=== PATIENT | female | born 1955 | race Caucasian/White ===

== ENCOUNTER 2019-02-03 15:13 | Emergency (ER) | payer BC, OTHER ==
[~2019-02-03] VITALS: Ht 154.9 cm; Wt 98.4 kg
[~2019-02-03 15:13] MED LIST: ALL300 PO; AMIT25TA9 PO; AMLO5TAB4 PO; ASA81 PO; BENA40TA8 PO; FENO145T PO; Humulin R; INSU100V9 SQ; LEVO25TA2 PO; OMEG500C3 PO; TOPXL100 PO
[2019-02-03 15:26] VITALS: BP_SYST 158
[2019-02-03 16:15] VITALS: BP_SYST 144
== END 2019-02-03 16:15 | disposition home or self-care (01) ==
LOC: SED 15:13
DX: T82.838A Hemorrhage due to vascular prosthetic devices, implants and grafts, initial encounter (principal); J45.909 Unspecified asthma, uncomplicated; I12.9 Hypertensive chronic kidney disease with stage 1 through stage 4 chronic kidney disease, or unspecified chronic kidney disease; E11.22 Type 2 diabetes mellitus with diabetic chronic kidney disease; N18.9 Chronic kidney disease, unspecified; Z86.79 Personal history of other diseases of the circulatory system; Z88.0 Allergy status to penicillin; Z88.2 Allergy status to sulfonamides; Z88.5 Allergy status to narcotic agent; Z88.8 Allergy status to other drugs, medicaments and biological substances; Z79.899 Other long term (current) drug therapy; Y92.89 Other specified places as the place of occurrence of the external cause
CPT/HCPCS: 99283

== ENCOUNTER 2019-04-13 11:59 | Emergency (ER) | payer BC, OTHER ==
[~2019-04-13] VITALS: Ht 152.4 cm; Wt 117.9 kg
[~2019-04-13 11:59] MED LIST changes: -Humulin R; +Humulin R SQ
[2019-04-13 12:27] VITALS: BP_SYST 170
[2019-04-13] MEDS ORDERED: KETOROLAC TROMETHAMINE 30 MG VIAL IVP ONE (12:45)
[2019-04-13] MEDS ORDERED: ONDANSETRON HCL 4 MG/2 ML VIAL IVP ONE (12:45)
[2019-04-13 12:50] LABS: BASOPHILS % (AUTO) 0.6 % (0.0-2.0); EOSINOPHILS # (AUTO) 0.2 K/uL (0.0-0.4); EOSINOPHILS % (AUTO) 2.8 % (0.0-4.0); HEMATOCRIT 30.2 % (36-48); HEMOGLOBIN 9.8 g/dL (12.0-16.0); LYMPHOCYTES # (AUTO) 1.1 K/uL (1.0-5.5); LYMPHOCYTES % (AUTO) 14.9 % (20.5-51.5); MEAN CORPUSCULAR HEMOGLOBIN 29 pg (27-31); MEAN CORPUSCULAR HGB CONC 32 % (32-36); MEAN CORPUSCULAR VOLUME 91 fL (79.0-98.0); MONOCYTES # (AUTO) 0.4 K/uL (0.0-1.0); MONOCYTES % (AUTO) 4.9 % (1.7-9.3); NEUTROPHILS # (AUTO) 5.6 K/uL (1.8-7.7); NEUTROPHILS % (AUTO) 76.8 % (40.0-70.0); PLATELET COUNT (AUTO) 204 K/uL (130-430); RED BLOOD CELL COUNT(AUTO) 3.34 MIL/uL (4.2-6.2); RED CELL DISTRIBUTION WIDTH 16.9 % (9.0-15.0); WHITE BLOOD COUNT (AUTO) 7.4 K/uL (4.8-10.8)
--- NOTE | 2019-04-13 13:00 | NUR ---
Patient to ER bed 6 to gown for evaluation. Side rails up. Report given to Keira GOYAL.
[2019-04-13 13:03] LABS: BILIRUBIN,URINE NEGATIVE (NEGATIVE); BLOOD, URINE 1+ (NEGATIVE); CLARITY/URINE CLEAR (CLEAR); COLOR,URINE YELLOW (YELLOW); GLUCOSE,URINE 2+ (NEGATIVE); KETONES,URINE NEGATIVE (NEGATIVE); LEUKOCYTE ESTERASE ,URINE NEGATIVE (NEGATIVE); NITRITE, URINE NEGATIVE (NEGATIVE); PROTEIN URINE 3+ (NEGATIVE); UROBILINOGEN,URINE 0.2 (0.2-1.0)
[2019-04-13 13:06] LABS: CALCIUM 7.8 mg/dL (8.4-11.0); POTASSIUM 3.5 mmol/L (3.5-5.1)
[2019-04-13 13:11] LABS: WBC,URINE 0-3 /HPF (0-3)
[2019-04-13 13:12] LABS: ALBUMIN 3.8 g/dL (3.4-4.8); TOTAL BILIRUBIN 0.5 mg/dL (0.0-1.0)
[2019-04-13 13:12] LABS: BACTERIA,URINE FEW /HPF (None Seen)
[2019-04-13 13:15] LABS: CREATININE 7.92 mg/dL (0.55-1.30)
--- NOTE | 2019-04-13 13:20 | NUR ---
Patient given written and verbal discharge instructions and verbalizes understanding. ER MD discussed with patient the results and treatment provided. Patient in stable condition. ID arm band removed. Rx of given. Patient educated on pain management and to follow up with PMD. Pain Scale 0 Opportunity for questions provided and answered. Medication side effect fact sheet provided.
[2019-04-13] MEDS ORDERED: LOPERAMIDE HCL 2 MG CAPSULE PO ONE (13:45)
--- NOTE | 2019-04-13 14:32 | NUR ---
Patient given imodium prior to discharge, written on cover sheet for discharge instructions what time last dose was given.
--- NOTE | 2019-04-13 14:37 | NUR ---
Patient given written and verbal discharge instructions and verbalizes understanding. ER MD discussed with patient the results and treatment provided. Patient in stable condition. ID arm band removed. IV catheter removed intact and dressing applied, no active bleeding. Rx of Zofran, Imodium given. Patient educated on pain management and to follow up with PMD. Pain Scale 3/10. Opportunity for questions provided and answered. Medication side effect fact sheet provided.
[2019-04-13 14:46] VITALS: BP_SYST 163
--- NOTE | 2019-04-15 13:00 | NUR ---
Note claudia in EDM - 04/15/19 at 1900 by MELQUIADES [facility] rails up. Report given to Keira COOPER
== END 2019-04-13 14:37 | disposition home or self-care (01) ==
LOC: SED 11:59
DX: K52.9 Noninfective gastroenteritis and colitis, unspecified (principal); R53.1 Weakness; J45.909 Unspecified asthma, uncomplicated; E11.9 Type 2 diabetes mellitus without complications; N28.9 Disorder of kidney and ureter, unspecified; M10.9 Gout, unspecified; I49.9 Cardiac arrhythmia, unspecified; I10 Essential (primary) hypertension; R00.0 Tachycardia, unspecified; Z88.0 Allergy status to penicillin; Z88.2 Allergy status to sulfonamides; Z88.6 Allergy status to analgesic agent; Z88.8 Allergy status to other drugs, medicaments and biological substances; Z79.899 Other long term (current) drug therapy; Z79.82 Long term (current) use of aspirin
CPT/HCPCS: 36415; 70486; 71045; 80053; 81000; 83605; 85025; 86710; 87040; 87086; 93005; 96374; 96375; 99284; J1885; J2405

== ENCOUNTER 2019-04-14 16:52 | Emergency (ER) | payer BC, OTHER ==
[~2019-04-14] VITALS: Ht 154.9 cm; Wt 88.5 kg
--- NOTE | 2019-04-14 16:56 | NUR ---
Patient to ER bed 06 to gown for evaluation. Side rails up.
[2019-04-14 17:00] VITALS: BP_SYST 153
--- NOTE | 2019-04-14 17:00 | NUR ---
Patient arrived in the ED accompanied by her sister, c/o right hip pain post mechanical fall this afternoon. Denied any head injury or loss of consciousness. Denied any nausea, vomiting or diarrhea. Denied any chest pain, SOB, or blurry vision. Patient is alert and oriented x4, respirations even and unlabored, speaking in full sentences. Sister at bedside. Informed of wait time. Instructed to notify ED staff for any changes in condition or worsening of symptoms. Patient verbalized understanding.
--- NOTE | 2019-04-14 17:09 | NUR ---
X-ray done at bedside as ordered by Dr. Munson. Patient tolerated the medicatons well.
[2019-04-14] MEDS ORDERED: HYDROcodone/ACETAMIN 10-325 MG TAB PO ONE (17:15)
--- NOTE | 2019-04-14 17:15 | NUR ---
PEGGY Munson at bedside examining patient.
--- NOTE | 2019-04-14 17:17 | NUR ---
Administered 10/325 [place] PO as ordered by Dr. Munson. Patient tolerated the medication well.
--- NOTE | 2019-04-14 17:50 | NUR ---
Patient given written and verbal discharge instructions and verbalizes understanding. ER MD discussed with patient the results and treatment provided. Patient in stable condition. ID arm band removed. Rx of [place] 5/325 given. Patient educated on pain management and to follow up with PMD. Pain Scale 3/10. Opportunity for questions provided and answered. Medication side effect fact sheet provided.
== END 2019-04-14 17:51 | disposition home or self-care (01) ==
LOC: SED 16:52
DX: S70.01XA Contusion of right hip, initial encounter (principal); J45.909 Unspecified asthma, uncomplicated; E11.9 Type 2 diabetes mellitus without complications; I10 Essential (primary) hypertension; Z88.0 Allergy status to penicillin; Z88.2 Allergy status to sulfonamides; Z88.8 Allergy status to other drugs, medicaments and biological substances; Z79.82 Long term (current) use of aspirin; Z79.899 Other long term (current) drug therapy; W01.0XXA Fall on same level from slipping, tripping and stumbling without subsequent striking against object, initial encounter; Y93.89 Activity, other specified; Y92.89 Other specified places as the place of occurrence of the external cause; Y99.8 Other external cause status
CPT/HCPCS: 73502; 99283

== ENCOUNTER 2019-04-20 14:09 | Inpatient (IN) | payer BC, OTHER ==
[~2019-04-20] VITALS: Ht 156.2 cm; Wt 98.0 kg
[2019-04-20 14:53] VITALS: BP_SYST 147
[2019-04-20] MEDS ORDERED: NACL 0.9% 1,000 ML IV ONE (15:07)
[2019-04-20] MEDS ORDERED: IPRATROPIUM BROM 0.5 MG/2.5 ML VIAL.NEB (ATROVENT) INH ONE (15:15)
[2019-04-20] MEDS ORDERED: ALBUTEROL SULFATE 0.083% 2.5 MG/3 ML VIAL.NEB INH ONE (15:15)
[2019-04-20 15:44] LABS: BASOPHILS % (AUTO) 0.5 % (0.0-2.0); EOSINOPHILS # (AUTO) 0.2 K/uL (0.0-0.4); EOSINOPHILS % (AUTO) 2.1 % (0.0-4.0); HEMATOCRIT 27.5 % (36-48); HEMOGLOBIN 9.1 g/dL (12.0-16.0); LYMPHOCYTES # (AUTO) 0.7 K/uL (1.0-5.5); LYMPHOCYTES % (AUTO) 8.1 % (20.5-51.5); MEAN CORPUSCULAR HEMOGLOBIN 30 pg (27-31); MEAN CORPUSCULAR HGB CONC 33 % (32-36); MEAN CORPUSCULAR VOLUME 91 fL (79.0-98.0); MONOCYTES # (AUTO) 0.5 K/uL (0.0-1.0); MONOCYTES % (AUTO) 6.3 % (1.7-9.3); NEUTROPHILS # (AUTO) 7.1 K/uL (1.8-7.7); PLATELET COUNT (AUTO) 206 K/uL (130-430); RED BLOOD CELL COUNT(AUTO) 3.03 MIL/uL (4.2-6.2); RED CELL DISTRIBUTION WIDTH 16.9 % (9.0-15.0); WHITE BLOOD COUNT (AUTO) 8.6 K/uL (4.8-10.8)
[2019-04-20 16:09] LABS: INR 1.1 (0.8-1.2); PROTHROMBIN TIME 10.9 SECS (9.5-12.5)
[2019-04-20] MEDS ORDERED: FUROSEMIDE 40 MG/4 ML VIAL IVP ONE (16:30)
[2019-04-20 17:02] LABS: CREATININE 4.07 mg/dL (0.55-1.30); POTASSIUM 3.7 mmol/L (3.5-5.1)
[2019-04-20 17:11] LABS: ALBUMIN 3.2 g/dL (3.4-4.8); TOTAL BILIRUBIN 0.6 mg/dL (0.0-1.0)
[2019-04-20 17:24] LABS: CALCIUM 8.4 mg/dL (8.4-11.0)
[2019-04-20 17:35] LABS: BILIRUBIN,URINE NEGATIVE (NEGATIVE); CLARITY/URINE CLEAR (CLEAR); COLOR,URINE YELLOW (YELLOW); GLUCOSE,URINE 3+ (NEGATIVE); KETONES,URINE NEGATIVE (NEGATIVE); LEUKOCYTE ESTERASE ,URINE NEGATIVE (NEGATIVE); NITRITE, URINE NEGATIVE (NEGATIVE); PH,URINE 8.5 (5.0-8.0); PROTEIN URINE 3+ (NEGATIVE); UROBILINOGEN,URINE 0.2 (0.2-1.0)
[2019-04-20 17:46] LABS: BLOOD, URINE TRACE (NEGATIVE)
[2019-04-20] MEDS ORDERED: [UNRECOGNIZED DRUG - OTHER] PO (17:55)
[2019-04-20] MEDS ORDERED: INSNLG7030 SUBCUT ×2 (17:55)
[2019-04-20] MEDS ORDERED: CALC0.258 PO (17:57)
[2019-04-20] MEDS ORDERED: LORA10TA7 PO (17:57)
[2019-04-20 18:38] LABS: BACTERIA,URINE FEW /HPF (None Seen); MUCUS,URINE None Seen /LPF (None Seen); RBC,URINE 0-3 /HPF (0-3); WBC,URINE 0-3 /HPF (0-3)
[2019-04-20 20:44] VITALS: BP_SYST 140
[2019-04-20] MEDS: INSULIN REGULAR, HUMAN 100 UNITS/ML, 10 ML VIAL (humuLIN R) SUBCUT PRN (21:24)
[2019-04-21 00:13] VITALS: BP_SYST 153
[2019-04-21] MEDS: INSULIN REGULAR, HUMAN 100 UNITS/ML, 10 ML VIAL (humuLIN R) SUBCUT PRN ×2 (06:42→11:31)
[2019-04-21 07:42] LABS: BASOPHILS % (AUTO) 0.5 % (0.0-2.0); EOSINOPHILS # (AUTO) 0.2 K/uL (0.0-0.4); EOSINOPHILS % (AUTO) 3.2 % (0.0-4.0); HEMATOCRIT 28.4 % (36-48); HEMOGLOBIN 9.1 g/dL (12.0-16.0); LYMPHOCYTES # (AUTO) 1.1 K/uL (1.0-5.5); LYMPHOCYTES % (AUTO) 15.7 % (20.5-51.5); MEAN CORPUSCULAR HEMOGLOBIN 30 pg (27-31); MEAN CORPUSCULAR HGB CONC 32 % (32-36); MEAN CORPUSCULAR VOLUME 92 fL (79.0-98.0); MONOCYTES # (AUTO) 0.4 K/uL (0.0-1.0); MONOCYTES % (AUTO) 5.6 % (1.7-9.3); NEUTROPHILS # (AUTO) 5.3 K/uL (1.8-7.7); PLATELET COUNT (AUTO) 201 K/uL (130-430); RED BLOOD CELL COUNT(AUTO) 3.09 MIL/uL (4.2-6.2); RED CELL DISTRIBUTION WIDTH 17.3 % (9.0-15.0); WHITE BLOOD COUNT (AUTO) 7.1 K/uL (4.8-10.8)
[2019-04-21 07:52] LABS: ALBUMIN 3.3 g/dL (3.4-4.8); CALCIUM 8.4 mg/dL (8.4-11.0); CREATININE 5.09 mg/dL (0.55-1.30); POTASSIUM 3.6 mmol/L (3.5-5.1); TOTAL BILIRUBIN 0.6 mg/dL (0.0-1.0)
[2019-04-21 08:00] VITALS: BP_SYST 147
[2019-04-21 11:25] VITALS: BP_SYST 152
[2019-04-21 14:49] VITALS: BP_SYST 128
== END 2019-04-21 15:00 | disposition home or self-care (01) | DRG 204 ==
LOC: SED 14:09 → STU 18:43
PROVIDERS: ADMIT Internal Medicine; ATTEND Internal Medicine
DX: R06.02 Shortness of breath (principal); N18.6 End stage renal disease; Z68.41 Body mass index [BMI] 40.0-44.9, adult; I12.0 Hypertensive chronic kidney disease with stage 5 chronic kidney disease or end stage renal disease; M10.9 Gout, unspecified; J45.909 Unspecified asthma, uncomplicated; E11.22 Type 2 diabetes mellitus with diabetic chronic kidney disease; E11.40 Type 2 diabetes mellitus with diabetic neuropathy, unspecified; G47.33 Obstructive sleep apnea (adult) (pediatric); F41.9 Anxiety disorder, unspecified; E78.5 Hyperlipidemia, unspecified; E66.9 Obesity, unspecified; T50.995A Adverse effect of other drugs, medicaments and biological substances, initial encounter; Y92.89 Other specified places as the place of occurrence of the external cause; Z99.2 Dependence on renal dialysis; Z88.2 Allergy status to sulfonamides; Z88.0 Allergy status to penicillin; Z90.710 Acquired absence of both cervix and uterus; Z88.5 Allergy status to narcotic agent; Z88.8 Allergy status to other drugs, medicaments and biological substances; Z79.899 Other long term (current) drug therapy
CPT/HCPCS: 36415; 71045; 80053; 81000-TC; 82150-TC; 82550-TC; 82962; 83605; 83690-TC; 83880; 84484; 85025; 85610-TC; 85730-TC; 87040-TC; 87081; 93005; 94640; 96374; 99285; G0378; J1815; J1940; J7030; J7613

== ENCOUNTER 2019-05-05 10:58 | Emergency (ER) | payer BC, OTHER ==
[~2019-05-05] VITALS: Ht 154.9 cm; Wt 95.3 kg
[~2019-05-05 10:58] MED LIST changes: -ASA81 PO; +CALC0.258 PO; -Humulin R SQ; +INSNLG7030 SUBCUT; -INSU100V9 SQ; +LORA10TA7 PO; -OMEG500C3 PO; +[UNRECOGNIZED DRUG - OTHER] PO
[2019-05-05 11:10] VITALS: BP_SYST 134
--- NOTE | 2019-05-05 11:10 | NUR ---
Placed in room 04. Placed on ekg monitor tech, blood pressure machine and pulse oximeter. To gown for exam. Side rails up.
--- NOTE | 2019-05-05 11:45 | NUR ---
ER at bedside examining patient.
--- NOTE | 2019-05-05 12:00 | NUR ---
Received patient bib daugther with cc of generalized weakness. sob, lower back pain. room air saturation 95%. vital sign stable, afebrile. assessment done. monitor placed, ekg and labs drawn. waiting for result.
[2019-05-05 12:15] LABS: BASOPHILS % (AUTO) 0.5 % (0.0-2.0); EOSINOPHILS # (AUTO) 0.3 K/uL (0.0-0.4); EOSINOPHILS % (AUTO) 3.7 % (0.0-4.0); HEMATOCRIT 28.5 % (36-48); HEMOGLOBIN 9.1 g/dL (12.0-16.0); LYMPHOCYTES % (AUTO) 10.9 % (20.5-51.5); MEAN CORPUSCULAR HEMOGLOBIN 29 pg (27-31); MEAN CORPUSCULAR HGB CONC 32 % (32-36); MEAN CORPUSCULAR VOLUME 91 fL (79.0-98.0); MONOCYTES # (AUTO) 0.3 K/uL (0.0-1.0); MONOCYTES % (AUTO) 3.7 % (1.7-9.3); NEUTROPHILS # (AUTO) 7.3 K/uL (1.8-7.7); NEUTROPHILS % (AUTO) 81.2 % (40.0-70.0); PLATELET COUNT (AUTO) 254 K/uL (130-430); RED BLOOD CELL COUNT(AUTO) 3.12 MIL/uL (4.2-6.2); RED CELL DISTRIBUTION WIDTH 16.8 % (9.0-15.0)
[2019-05-05 12:30] LABS: INR 1.1 (0.8-1.2); PROTHROMBIN TIME 10.6 SECS (9.5-12.5)
[2019-05-05 12:37] LABS: CALCIUM 10.3 mg/dL (8.4-11.0); POTASSIUM 4.5 mmol/L (3.5-5.1)
[2019-05-05 12:39] LABS: ALBUMIN 3.3 g/dL (3.4-4.8); TOTAL BILIRUBIN 0.5 mg/dL (0.0-1.0)
--- NOTE | 2019-05-05 13:34 | NUR ---
Patient transported to radiology via gurney , accompanied by cardiac cath lab radiology technologist.
[2019-05-05 14:12] LABS: AMYLASE 67 U/L (0-100); LIPASE 225 U/L (73-393)
[2019-05-05] MEDS ORDERED: ESLI200T PO (15:33)
[2019-05-05] MEDS ORDERED: TRAZ300T11 PO (15:33)
[2019-05-05 16:14] VITALS: BP_SYST 122
--- NOTE | 2019-05-05 16:14 | NUR ---
Patient given written and verbal discharge instructions and verbalizes understanding. ER MD Rodriguez discussed with patient the results and treatment provided. Patient in stable condition. ID arm band removed. Rx of Azithromycin, [place], Sudafed given. Patient educated on pain management and to follow up with PMD. Pain Scale 0. Opportunity for questions provided and answered. Medication side effect fact sheet provided.
== END 2019-05-05 16:14 | disposition home or self-care (01) ==
LOC: SED 10:58
DX: N19 Unspecified kidney failure (principal); J40 Bronchitis, not specified as acute or chronic; M54.9 Dorsalgia, unspecified; J45.909 Unspecified asthma, uncomplicated; I10 Essential (primary) hypertension; Z88.2 Allergy status to sulfonamides; Z88.8 Allergy status to other drugs, medicaments and biological substances; Z88.0 Allergy status to penicillin; Z79.4 Long term (current) use of insulin; Z79.899 Other long term (current) drug therapy
CPT/HCPCS: 36415; 71045; 80053; 82150-TC; 82550-TC; 82962; 83690-TC; 83880; 84484; 85025; 85610-TC; 85730-TC; 86710; 99284

== ENCOUNTER 2019-05-06 19:08 | Inpatient (IN) | payer BC, OTHER ==
[~2019-05-06] VITALS: Ht 154.9 cm; Wt 100.0 kg
[~2019-05-06 19:08] MED LIST changes: +ESLI200T PO; +TRAZ300T11 PO
[2019-05-06 19:13] VITALS: BP_SYST 162
[2019-05-06 21:12] LABS: BASOPHILS # (AUTO) 0.1 K/uL (0.0-0.2); BASOPHILS % (AUTO) 0.6 % (0.0-2.0); EOSINOPHILS # (AUTO) 0.1 K/uL (0.0-0.4); EOSINOPHILS % (AUTO) 1.3 % (0.0-4.0); HEMATOCRIT 29.8 % (36-48); HEMOGLOBIN 9.6 g/dL (12.0-16.0); LYMPHOCYTES # (AUTO) 0.9 K/uL (1.0-5.5); LYMPHOCYTES % (AUTO) 9.1 % (20.5-51.5); MEAN CORPUSCULAR HEMOGLOBIN 29 pg (27-31); MEAN CORPUSCULAR HGB CONC 32 % (32-36); MEAN CORPUSCULAR VOLUME 91 fL (79.0-98.0); MONOCYTES # (AUTO) 0.3 K/uL (0.0-1.0); MONOCYTES % (AUTO) 3.5 % (1.7-9.3); NEUTROPHILS # (AUTO) 8.1 K/uL (1.8-7.7); NEUTROPHILS % (AUTO) 85.5 % (40.0-70.0); PLATELET COUNT (AUTO) 273 K/uL (130-430); RED BLOOD CELL COUNT(AUTO) 3.29 MIL/uL (4.2-6.2); RED CELL DISTRIBUTION WIDTH 16.5 % (9.0-15.0); WHITE BLOOD COUNT (AUTO) 9.4 K/uL (4.8-10.8)
[2019-05-06] MEDS ORDERED: NITROGLYCERIN 0.4 MG TAB.SUBL SL ONE (21:15)
[2019-05-06] MEDS ORDERED: cefTRIAXone 1 GM IVPB PREMIX 50 ML IV ONE (21:15)
[2019-05-06] MEDS ORDERED: AZITHROMYCIN 250 MG TABLET PO ONE (21:15)
[2019-05-06] MEDS ORDERED: FUROSEMIDE 40 MG/4 ML VIAL IVP ONE (21:15)
[2019-05-06 21:27] LABS: CALCIUM 10.1 mg/dL (8.4-11.0); POTASSIUM 4.5 mmol/L (3.5-5.1)
[2019-05-06] MEDS ORDERED: OSELTAMIVIR PHOSPHATE 75 MG CAPSULE PO ONE (21:30)
[2019-05-06 21:35] LABS: INR 1.1 (0.8-1.2); PROTHROMBIN TIME 11.5 SECS (9.5-12.5)
[2019-05-06 21:55] LABS: ALBUMIN 3.4 g/dL (3.4-4.8); TOTAL BILIRUBIN 0.5 mg/dL (0.0-1.0)
[2019-05-06 21:57] LABS: CREATININE 10.06 mg/dL (0.55-1.30)
[2019-05-06 22:51] LABS: BILIRUBIN,URINE NEGATIVE (NEGATIVE); BLOOD, URINE 2+ (NEGATIVE); COLOR,URINE YELLOW (YELLOW); GLUCOSE,URINE 2+ (NEGATIVE); KETONES,URINE NEGATIVE (NEGATIVE); LEUKOCYTE ESTERASE ,URINE NEGATIVE (NEGATIVE); NITRITE, URINE NEGATIVE (NEGATIVE); PROTEIN URINE 3+ (NEGATIVE); UROBILINOGEN,URINE 0.2 (0.2-1.0)
[2019-05-06 23:00] LABS: CLARITY/URINE SLIGHTLY HAZY (CLEAR)
[2019-05-06 23:25] LABS: BACTERIA,URINE FEW /HPF (None Seen); WBC,URINE 0-3 /HPF (0-3)
[2019-05-07] VITALS (7 sets, daily range): BP systolic 122–150
[2019-05-07] MEDS: IPRATROPIUM/ALBUTEROL SULFATE 3 ML AMPUL.NEB (DUONEB) INH SCH ×3 (00:32→20:28)
[2019-05-07] MEDS ORDERED: traZODone HCL 50 MG TABLET (DESYREL) PO ONE (01:15)
[2019-05-07] MEDS: INSULIN LISPRO SLIDING SCALE 100 UNITS/ML VIAL (humaLOG) SUBCUT PRN ×3 (06:21→17:14)
[2019-05-07 08:05] LABS: BASOPHILS # (AUTO) 0.1 K/uL (0.0-0.2); BASOPHILS % (AUTO) 0.5 % (0.0-2.0); EOSINOPHILS # (AUTO) 0.2 K/uL (0.0-0.4); EOSINOPHILS % (AUTO) 1.7 % (0.0-4.0); HEMATOCRIT 28.3 % (36-48); HEMOGLOBIN 9.2 g/dL (12.0-16.0); LYMPHOCYTES # (AUTO) 1.1 K/uL (1.0-5.5); LYMPHOCYTES % (AUTO) 11.2 % (20.5-51.5); MEAN CORPUSCULAR HEMOGLOBIN 30 pg (27-31); MEAN CORPUSCULAR HGB CONC 33 % (32-36); MEAN CORPUSCULAR VOLUME 91 fL (79.0-98.0); MONOCYTES # (AUTO) 0.5 K/uL (0.0-1.0); MONOCYTES % (AUTO) 4.9 % (1.7-9.3); NEUTROPHILS # (AUTO) 7.8 K/uL (1.8-7.7); NEUTROPHILS % (AUTO) 81.7 % (40.0-70.0); PLATELET COUNT (AUTO) 247 K/uL (130-430); RED BLOOD CELL COUNT(AUTO) 3.11 MIL/uL (4.2-6.2); RED CELL DISTRIBUTION WIDTH 16.5 % (9.0-15.0); WHITE BLOOD COUNT (AUTO) 9.6 K/uL (4.8-10.8)
[2019-05-07 08:58] LABS: CALCIUM 9.5 mg/dL (8.4-11.0); POTASSIUM 4.1 mmol/L (3.5-5.1)
[2019-05-07] MEDS ORDERED: OSELTAMIVIR PHOSPHATE 6 MG/1 ML, 60 ML SUSP PO SCH (09:00)
[2019-05-07 09:19] LABS: CREATININE 10.37 mg/dL (0.55-1.30)
[2019-05-07 09:53] LABS: THYROID STIMULATING HORMONE 2.44 uIu/mL (0.36-3.74)
[2019-05-07 09:54] LABS: TOTAL BILIRUBIN 0.5 mg/dL (0.0-1.0)
[2019-05-07 09:56] LABS: ALBUMIN 3.5 g/dL (3.4-4.8); PHOSPHORUS 11.5 mg/dL (2.7-4.5)
[2019-05-07] MEDS ORDERED: METHOCARBAMOL 500 MG TABLET PO PRN (13:45)
[2019-05-07] MEDS ORDERED: D5W 1,000 ML IV PRN (14:45)
[2019-05-07] MEDS ORDERED: GLUCOSE 15 GM GEL (in 37.5 GM TUBE) PO PRN (14:45)
[2019-05-07] MEDS ORDERED: DEXTROSE 50%-WATER 50 ML DISP.SYRIN IVP PRN (14:45)
[2019-05-07] MEDS: INSULIN NPH/REGULAR 70-30, 100 UNITS/ML, 10 ML VIAL SUBCUT SCH (17:14)
[2019-05-07] MEDS ORDERED: AZITHROMYCIN 250 MG TABLET PO ONE (18:30)
[2019-05-07] MEDS ORDERED: FUROSEMIDE 40 MG/4 ML VIAL IVP ONE (18:30)
[2019-05-07] MEDS: SEVELAMER HCL 800 MG TABLET PO SCH (18:30)
[2019-05-07] MEDS ORDERED: BENAZEPRIL HCL 20 MG TABLET (LOTENSIN) PO SCH (18:30)
[2019-05-07] MEDS ORDERED: COMMUNICATION ORDER XX ONE (18:30)
[2019-05-07] MEDS ORDERED: SENNOSIDES 8.6 MG TABLET PO ONE (18:30)
[2019-05-07] MEDS ORDERED: SENNOSIDES 8.6 MG TABLET PO PRN (18:30)
[2019-05-07] MEDS: CALCITRIOL 0.25 MCG CAPSULE PO SCH (18:30)
[2019-05-07] MEDS: LEVOTHYROXINE SODIUM 0.025 MG TABLET PO SCH (18:30)
[2019-05-07] MEDS ORDERED: LISINOPRIL 20 MG TABLET PO ONE (19:15)
[2019-05-07] MEDS: CLOTRIMAZOLE 2% 3 DAY VAGINAL 21 GM CREAM.APPL VG SCH (21:00)
[2019-05-07] MEDS ORDERED: NON-FORMULARY MEDICATION (Trazodone Hcl 100 MG) PO SCH (21:00)
[2019-05-07] MEDS: amLODIPine BESYLATE 5 MG TABLET PO SCH ×2 (21:00→22:04)
[2019-05-07] MEDS: FENOFIBRATE NANOCRYSTALLIZED 48 MG TABLET (TRICOR) PO SCH (22:01)
[2019-05-07] MEDS: traZODone HCL 50 MG TABLET (DESYREL) PO SCH (22:02)
[2019-05-07] MEDS: METOPROLOL TARTRATE 25 MG TABLET PO SCH (22:03)
[2019-05-07] MEDS ORDERED: FUROSEMIDE 40 MG/4 ML VIAL ONE (22:28)
[2019-05-08] MEDS: INSULIN NPH/REGULAR 70-30, 100 UNITS/ML, 10 ML VIAL SUBCUT SCH ×2 (06:29→17:04)
[2019-05-08] MEDS: IPRATROPIUM/ALBUTEROL SULFATE 3 ML AMPUL.NEB (DUONEB) INH SCH ×4 (07:41→18:00)
[2019-05-08 07:52] LABS: CALCIUM 8.7 mg/dL (8.4-11.0); CREATININE 6.98 mg/dL (0.55-1.30); POTASSIUM 3.3 mmol/L (3.5-5.1)
[2019-05-08 08:00] VITALS: BP_SYST 132
[2019-05-08] MEDS ORDERED: POTASSIUM CHLORIDE 10 MEQ TAB.PRT.SR PO ONE (09:30)
[2019-05-08] MEDS: SEVELAMER HCL 800 MG TABLET PO SCH ×3 (09:32→17:00)
[2019-05-08] MEDS: LORATADINE 10 MG TABLET PO SCH (09:33)
[2019-05-08] MEDS: FUROSEMIDE 40 MG/4 ML VIAL IVP SCH ×2 (09:33→22:11)
[2019-05-08] MEDS: METOPROLOL TARTRATE 25 MG TABLET PO SCH ×2 (09:34→22:12)
[2019-05-08] MEDS: amLODIPine BESYLATE 5 MG TABLET PO SCH ×2 (09:35→22:13)
[2019-05-08] MEDS: LISINOPRIL 20 MG TABLET PO SCH (09:37)
[2019-05-08] MEDS: LEVOTHYROXINE SODIUM 0.025 MG TABLET PO SCH (09:37)
[2019-05-08] MEDS: CALCITRIOL 0.25 MCG CAPSULE PO SCH (09:37)
[2019-05-08] MEDS: INSULIN LISPRO SLIDING SCALE 100 UNITS/ML VIAL (humaLOG) SUBCUT PRN (11:56)
[2019-05-08 12:00] VITALS: BP_SYST 138
[2019-05-08] MEDS: ACETAMINOPHEN 325 MG TABLET PO PRN (17:16)
[2019-05-08 17:56] VITALS: BP_SYST 136
[2019-05-08] MEDS ORDERED: APTIOM 200 MG PO ONE (18:45)
[2019-05-08 20:30] VITALS: BP_SYST 141
[2019-05-08] MEDS: CLOTRIMAZOLE 2% 3 DAY VAGINAL 21 GM CREAM.APPL VG SCH (21:00)
[2019-05-08] MEDS ORDERED: AZITHROMYCIN 250 MG TABLET PO SCH (21:00)
[2019-05-08] MEDS: traZODone HCL 50 MG TABLET (DESYREL) PO SCH (22:11)
[2019-05-08] MEDS: FENOFIBRATE NANOCRYSTALLIZED 48 MG TABLET (TRICOR) PO SCH (22:12)
[2019-05-08 23:57] VITALS: BP_SYST 126
[2019-05-09] MEDS: ACETAMINOPHEN 325 MG TABLET PO PRN ×3 (00:05→12:02)
[2019-05-09] MEDS: IPRATROPIUM/ALBUTEROL SULFATE 3 ML AMPUL.NEB (DUONEB) INH SCH ×3 (05:51→12:00)
[2019-05-09] MEDS: INSULIN NPH/REGULAR 70-30, 100 UNITS/ML, 10 ML VIAL SUBCUT SCH ×2 (06:52→17:00)
[2019-05-09] MEDS: INSULIN LISPRO SLIDING SCALE 100 UNITS/ML VIAL (humaLOG) SUBCUT PRN ×2 (06:53→11:24)
[2019-05-09 08:02] LABS: CALCIUM 8.2 mg/dL (8.4-11.0); PHOSPHORUS 8.5 mg/dL (2.7-4.5); POTASSIUM 3.8 mmol/L (3.5-5.1); TOTAL BILIRUBIN 0.4 mg/dL (0.0-1.0)
[2019-05-09 08:07] LABS: CREATININE 8.45 mg/dL (0.55-1.30)
[2019-05-09] MEDS: LORATADINE 10 MG TABLET PO SCH (08:17)
[2019-05-09] MEDS: LEVOTHYROXINE SODIUM 0.025 MG TABLET PO SCH (08:17)
[2019-05-09] MEDS: SEVELAMER HCL 800 MG TABLET PO SCH ×3 (08:17→18:00)
[2019-05-09] MEDS: CALCITRIOL 0.25 MCG CAPSULE PO SCH (08:17)
[2019-05-09] MEDS: METOPROLOL TARTRATE 25 MG TABLET PO SCH (08:18)
[2019-05-09 08:21] VITALS: BP_SYST 138
[2019-05-09] MEDS: amLODIPine BESYLATE 5 MG TABLET PO SCH (09:00)
[2019-05-09] MEDS ORDERED: APTIOM 200 MG PO SCH (09:00)
[2019-05-09] MEDS ORDERED: ACETAMINOPHEN 325 MG TABLET PO PRN (12:15)
[2019-05-09 12:31] VITALS: BP_SYST 126
[2019-05-09] MEDS: FUROSEMIDE 40 MG/4 ML VIAL IVP SCH (13:27)
[2019-05-09] MEDS: LISINOPRIL 20 MG TABLET PO SCH (13:28)
[2019-05-09 15:15] VITALS: BP_SYST 118
[2019-05-09 16:50] VITALS: BP_SYST 131
[2019-05-09 16:51] VITALS: BP_SYST 131
== END 2019-05-09 18:00 | disposition home or self-care (01) | DRG 640 ==
LOC: SED 19:08 → STU 23:33
PROVIDERS: ADMIT Internal Medicine; ATTEND Internal Medicine
PROC: 5A1D70Z Performance of Urinary Filtration, Intermittent, Less than 6 Hours Per Day (ICD-10-PCS; principal; 2019-05-07)
PROC: 5A1D70Z Performance of Urinary Filtration, Intermittent, Less than 6 Hours Per Day (ICD-10-PCS; 2019-05-09)
DX: E87.70 Fluid overload, unspecified (principal); N18.6 End stage renal disease; I13.2 Hypertensive heart and chronic kidney disease with heart failure and with stage 5 chronic kidney disease, or end stage renal disease; I50.40 Unspecified combined systolic (congestive) and diastolic (congestive) heart failure; Z68.41 Body mass index [BMI] 40.0-44.9, adult; D64.9 Anemia, unspecified; E03.9 Hypothyroidism, unspecified; E11.22 Type 2 diabetes mellitus with diabetic chronic kidney disease; E11.40 Type 2 diabetes mellitus with diabetic neuropathy, unspecified; E78.5 Hyperlipidemia, unspecified; K21.9 Gastro-esophageal reflux disease without esophagitis; E66.01 Morbid (severe) obesity due to excess calories; K59.00 Constipation, unspecified; Z79.4 Long term (current) use of insulin; Z82.0 Family history of epilepsy and other diseases of the nervous system; Z91.15 Patient's noncompliance with renal dialysis; Z99.2 Dependence on renal dialysis; Z88.0 Allergy status to penicillin; Z88.1 Allergy status to other antibiotic agents; Z88.2 Allergy status to sulfonamides; Z88.5 Allergy status to narcotic agent; Z88.8 Allergy status to other drugs, medicaments and biological substances; Z79.899 Other long term (current) drug therapy
CPT/HCPCS: 36415; 71045; 76700-TC; 80048; 80053; 81000-TC; 82962; 83605; 83880; 84100-TC; 84443-TC; 84484; 85025; 85610-TC; 85730-TC; 86710; 87040-TC; 87081; 87086; 90935; 90937; 93005; 93306; 93970; 94640; 94760; 96365; 96375; 99285; G0378; G9035; J0696; J1815; J1940; J7030; J7620; Q0144

== ENCOUNTER 2019-05-18 11:40 | Inpatient (IN) | payer BC, OTHER ==
[~2019-05-18] VITALS: Ht 154.9 cm; Wt 98.0 kg
--- NOTE | 2019-05-18 | NUR ---
HEADACHE Patient complained of headache. MD made aware, orders given, will carry out. All needs met at this time. Call light with patient. Addendum: 05/19/19 at 0438 by Danielito West RN INPUT FOR WRONG TIME.
--- NOTE | 2019-05-18 11:45 | NUR ---
Placed in room 03 . Placed on security monitor, blood pressure machine and pulse oximeter. To gown for exam. Side rails up.
--- NOTE | 2019-05-18 11:50 | NUR ---
Patient arrived in the ED accompanied by daughter c/o shortness of breath and chest pain that started 2 days ago. Denied any fevers, chills, nausea or vomiting. Patient is alert and oriented x4, speaking in full sentences and ambulating with a steady gait. VSS and pain level 5/10. Informed of approximate wait time. Daughter at bedside. Instructed to notify ED staff CLIVE for any changes in condition or worsening of symptoms. Patient verbalized understanding.
--- NOTE | 2019-05-18 12:04 | NUR ---
ER Dr. Wilkes at bedside examining patient.
[2019-05-18 12:09] VITALS: BP_SYST 154
--- NOTE | 2019-05-18 12:25 | NUR ---
# 20 gauge angiocath placed to RAC. Use of asceptic technique. Opsite placed over site. Blood return noted. Blood for lab drawn from site. Flushed with 10 cc of normal saline. No evidence of infiltration noted. Patient tolerated well.
[2019-05-18] MEDS ORDERED: KETOROLAC TROMETHAMINE 15 MG VIAL IVP ONE (12:30)
[2019-05-18] MEDS ORDERED: NITROGLYCERIN 1 INCH (GM) OINT. TP ONE (12:30)
--- NOTE | 2019-05-18 12:42 | NUR ---
Administered Toradol IVP and Nitro paste as ordered by Dr. Wilkes. Patient tolerated the medications well.
--- NOTE | 2019-05-18 12:48 | NUR ---
Patient ambulated to the bathroom with a steady gait. Urine specimen collected and dropped off at the lab.
--- NOTE | 2019-05-18 12:49 | NUR ---
X-ray tech at bedside doing a chest x-ray. Patient tolerated the procedure well.
[2019-05-18 12:55] LABS: BASOPHILS % (AUTO) 0.5 % (0.0-2.0); EOSINOPHILS # (AUTO) 0.3 K/uL (0.0-0.4); EOSINOPHILS % (AUTO) 3.5 % (0.0-4.0); HEMATOCRIT 25.9 % (36-48); HEMOGLOBIN 8.3 g/dL (12.0-16.0); LYMPHOCYTES # (AUTO) 1.2 K/uL (1.0-5.5); LYMPHOCYTES % (AUTO) 13.3 % (20.5-51.5); MEAN CORPUSCULAR HEMOGLOBIN 29 pg (27-31); MEAN CORPUSCULAR HGB CONC 32 % (32-36); MEAN CORPUSCULAR VOLUME 90 fL (79.0-98.0); MONOCYTES # (AUTO) 0.3 K/uL (0.0-1.0); MONOCYTES % (AUTO) 3.5 % (1.7-9.3); NEUTROPHILS # (AUTO) 7.2 K/uL (1.8-7.7); NEUTROPHILS % (AUTO) 79.2 % (40.0-70.0); PLATELET COUNT (AUTO) 218 K/uL (130-430); RED BLOOD CELL COUNT(AUTO) 2.88 MIL/uL (4.2-6.2); RED CELL DISTRIBUTION WIDTH 15.5 % (9.0-15.0); WHITE BLOOD COUNT (AUTO) 9.1 K/uL (4.8-10.8)
--- NOTE | 2019-05-18 12:56 | NUR ---
ECG done at bedside as ordered by Dr. Wilkes. Patient tolerated the procedure well. Report given to .
[2019-05-18 13:11] LABS: CALCIUM 9.5 mg/dL (8.4-11.0); POTASSIUM 4.1 mmol/L (3.5-5.1)
[2019-05-18 13:14] LABS: INR 1.1 (0.8-1.2); PROTHROMBIN TIME 10.9 SECS (9.5-12.5)
[2019-05-18 13:16] LABS: ALBUMIN 3.5 g/dL (3.4-4.8); TOTAL BILIRUBIN 0.5 mg/dL (0.0-1.0)
[2019-05-18 13:22] LABS: CREATININE 7.62 mg/dL (0.55-1.30)
[2019-05-18] MEDS ORDERED: LEVOFLOXACIN 500 MG/D5W 100 ML IV ONE (13:45)
[2019-05-18] MEDS ORDERED: FUROSEMIDE 40 MG/4 ML VIAL IVP ONE (13:45)
--- NOTE | 2019-05-18 14:14 | NUR ---
CALLED DR. ALMEIDA REGARDING ADMISSION. SPOKE WITH ARIANNE. AWAITING RETURN CALL.
--- NOTE | 2019-05-18 14:44 | NUR ---
Received admitting orders from Dr. Galdamez. Called in bed, spoke to Georgette - no beds available yet.
--- NOTE | 2019-05-18 16:51 | NUR ---
Patient is sitting comfortably in bed, respirations even and unlabored, VSS.
--- NOTE | 2019-05-18 16:55 | NUR ---
Patient ambulated to the bathroom with a steady gait.
[2019-05-18] MEDS ORDERED: INSULIN LISPRO SLIDING SCALE 100 UNITS/ML VIAL (humaLOG) SUBCUT SCH (17:00)
[2019-05-18] MEDS: INSULIN LISPRO SLIDING SCALE 100 UNITS/ML VIAL (humaLOG) SUBCUT SCH ×2 (17:00→21:00)
--- NOTE | 2019-05-18 17:30 | NUR ---
Patient ambulated to the bathroom with a steady gait.
[2019-05-18] MEDS ORDERED: INSULIN NPH/REGULAR 70-30, 100 UNITS/ML, 10 ML VIAL SUBCUT SCH (18:00)
--- NOTE | 2019-05-18 19:20 | NUR ---
Report given and care transferred to JYOTSNA Martin.
--- NOTE | 2019-05-18 20:33 | NUR ---
Transfer to Tele via ACLS protocol. Licensed nurse present. IV present no signs or symptoms of infiltration.
--- NOTE | 2019-05-18 20:56 | NUR ---
Admission Note Received patient from ER with diagnosis of CHF and ESRD. Initial Plan of Care discussed-patient verbalized understanding. Family at bedside. Oriented to room, call light, pain management and safety.
[2019-05-18 21:00] VITALS: BP_SYST 147
[2019-05-18] MEDS ORDERED: AMITRIPTYLINE HCL 25 MG TABLET (ELAVIL) PO SCH (21:00)
--- NOTE | 2019-05-18 21:26 | NUR ---
Paged Dr. Galdamez s/w Cristina
[2019-05-18] MEDS: amLODIPine BESYLATE 5 MG TABLET PO SCH (21:31)
[2019-05-18] MEDS: METOPROLOL SUCCINATE 50 MG TAB.SR.24H (TOPROL XL) PO SCH (21:31)
[2019-05-18] MEDS ORDERED: traZODone HCL 50 MG TABLET (DESYREL) PO ONE (22:00)
--- NOTE | 2019-05-18 23:54 | NUR ---
Paged Dr. Galdamez. JYOTSNA Esteves spoke to the doctor.
[2019-05-19] VITALS: BP_SYST 138
[2019-05-19] MEDS ORDERED: ACETAMINOPHEN 500 MG TABLET PO PRN
--- NOTE | 2019-05-19 | NUR ---
HEADACHE Patient complained of headache. MD made aware, orders given, will carry out. All needs met at this time. Call light with patient.
--- NOTE | 2019-05-19 02:00 | NUR ---
ROUNDS Patient in bed sleeping. No s/s of acute distress noted. Breathing even and unlabored. Call light with patient.
--- NOTE | 2019-05-19 03:53 | NUR ---
Consultation Paged Reason for Consultation: Renal Failure Was consult called: Y Person who was notified: Steph Consulting Physician: Joao Quach Gang Investigator Ordering Physician: Dr. Galdamez
--- NOTE | 2019-05-19 04:00 | NUR ---
REQUESTED FOR WARM BLANKET Patient woke up, complaining it was cold, warm blanket provided at this time. Patient states that she feels comfortable. Call light with patient.
[2019-05-19] MEDS: INSULIN LISPRO SLIDING SCALE 100 UNITS/ML VIAL (humaLOG) SUBCUT SCH ×3 (06:16→21:15)
--- NOTE | 2019-05-19 06:52 | NUR ---
LOW SUGAR/REASSESSED/CLOSING NOTES Patient's initial accucheck at 59, gave patient apple juice to drink. Blood sugar reassessed, within normal limits, at 80. No s/s of hypoglycemia noted at this time. No s/s of acute distress. Breathing even and unlabored. HOB raised. IV site patent, no signs of infiltration or infection noted. All needs met throughout shift. Fall and safety precautions maintained throughout shift. Will continue to monitor until patient care is endorsed to oncoming dayshift nurse.
[2019-05-19 07:31] LABS: BASOPHILS # (AUTO) 0.1 K/uL (0.0-0.2); BASOPHILS % (AUTO) 0.7 % (0.0-2.0); EOSINOPHILS # (AUTO) 0.4 K/uL (0.0-0.4); EOSINOPHILS % (AUTO) 4.5 % (0.0-4.0); HEMATOCRIT 25.7 % (36-48); HEMOGLOBIN 8.3 g/dL (12.0-16.0); LYMPHOCYTES # (AUTO) 1.3 K/uL (1.0-5.5); LYMPHOCYTES % (AUTO) 13.5 % (20.5-51.5); MEAN CORPUSCULAR HEMOGLOBIN 29 pg (27-31); MEAN CORPUSCULAR HGB CONC 32 % (32-36); MEAN CORPUSCULAR VOLUME 91 fL (79.0-98.0); MONOCYTES # (AUTO) 0.4 K/uL (0.0-1.0); MONOCYTES % (AUTO) 4.3 % (1.7-9.3); NEUTROPHILS # (AUTO) 7.4 K/uL (1.8-7.7); PLATELET COUNT (AUTO) 222 K/uL (130-430); RED BLOOD CELL COUNT(AUTO) 2.83 MIL/uL (4.2-6.2); RED CELL DISTRIBUTION WIDTH 15.7 % (9.0-15.0); WHITE BLOOD COUNT (AUTO) 9.6 K/uL (4.8-10.8)
[2019-05-19 08:15] LABS: ALBUMIN 3.4 g/dL (3.4-4.8); CALCIUM 9.8 mg/dL (8.4-11.0); TOTAL BILIRUBIN 0.4 mg/dL (0.0-1.0)
[2019-05-19 08:25] LABS: CREATININE 8.29 mg/dL (0.55-1.30); POTASSIUM 4.5 mmol/L (3.5-5.1)
[2019-05-19] MEDS ORDERED: INSULIN NPH/REGULAR 70-30, 100 UNITS/ML, 10 ML VIAL SUBCUT SCH (09:00)
[2019-05-19] MEDS: LORATADINE 10 MG TABLET PO PRN (10:23)
[2019-05-19] MEDS: LISINOPRIL 20 MG TABLET PO SCH ×2 (10:23→10:30)
[2019-05-19] MEDS: CALCITRIOL 0.25 MCG CAPSULE PO SCH (10:24)
[2019-05-19] MEDS: amLODIPine BESYLATE 5 MG TABLET PO SCH ×2 (10:24→21:00)
[2019-05-19] MEDS: ALLOPURINOL 300 MG TABLET (ZYLOPRIM) PO SCH (10:25)
[2019-05-19] MEDS: METOPROLOL SUCCINATE 50 MG TAB.SR.24H (TOPROL XL) PO SCH ×2 (10:26→21:00)
[2019-05-19] MEDS: LEVOTHYROXINE SODIUM 0.025 MG TABLET PO SCH (10:29)
--- NOTE | 2019-05-19 11:25 | NUR ---
FSBS prior to lunch = 135 no complaints or s/s at this time
[2019-05-19 13:15] VITALS: BP_SYST 151
[2019-05-19] MEDS: IPRATROPIUM/ALBUTEROL SULFATE 3 ML AMPUL.NEB (DUONEB) INH SCH ×2 (13:17→20:00)
[2019-05-19] MEDS ORDERED: BUDESONIDE 0.5 MG/2 ML AMPUL.NEB INH ONE (14:45)
--- NOTE | 2019-05-19 15:15 | NUR ---
After dialysis patient reports that her head " feels really wonky" and requests that her blood suger be assessed. FSBS at this time = 167,no interventions at this time.
--- NOTE | 2019-05-19 19:58 | NUR ---
Initial note: Received report from dayshift RN. Patient is awake in bed, no acute distress. Even and unlabored breathing on room air. No IV site, patient is refusing IV insertion, stated that last IV site gave her hives. Small red bumps noted at site of previous IV site. ESTHER AV shunt noted, placed limb alert band to left wrist. Call light with patient. Safety, fall precautions in place. Will continue monitoring.
[2019-05-19 20:00] VITALS: BP_SYST 145
[2019-05-19] MEDS: BUDESONIDE 0.5 MG/2 ML AMPUL.NEB INH SCH ×2 (20:00→20:29)
[2019-05-19] MEDS ORDERED: traZODone HCL 50 MG TABLET (DESYREL) PO SCH (21:00)
--- NOTE | 2019-05-19 22:16 | NUR ---
Dr. Galdamez: Reported pre-dinner and bedtime fingerstick blood glucose per MD additional order. Order received for 8 units Lantus once, verified by read-back, RN to input. MD made aware that patient does not have an IV site and is refusing insertion. MD stated to document refusal.
--- NOTE | 2019-05-19 22:36 | NUR ---
PAGED I PAGED DR. CAMPBELL @ [phone] I SPOKE WITH CHRIS EXCHANGE DR. ALMEIDA ANSWERED @ [phone]
[2019-05-19] MEDS ORDERED: INSULIN GLARGINE 100 UNITS/ML 10 ML VIAL SUBCUT ONE (23:00)
--- NOTE | 2019-05-20 00:04 | NUR ---
VS check refused: Patient refused to have vitals signs assessed despite educational efforts. Patient stated that she did not want to move. Patient agreed to receive Lantus 8 units subcutaneously as ordered by MD, medication administered to left abdomen. Call light with patient. Will monitor for s/s of hypoglycemia.
[2019-05-20] MEDS: IPRATROPIUM/ALBUTEROL SULFATE 3 ML AMPUL.NEB (DUONEB) INH SCH ×3 (00:57→14:01)
--- NOTE | 2019-05-20 03:12 | NUR ---
Rounds: Patient is resting in bed, no acute distress. Tolerating room air. Safety and fall precautions in place. Call light with patient. Will continue monitoring.
[2019-05-20] MEDS: INSULIN LISPRO SLIDING SCALE 100 UNITS/ML VIAL (humaLOG) SUBCUT SCH ×3 (06:34→17:06)
--- NOTE | 2019-05-20 06:41 | NUR ---
Closing note: Patient is awake, no acute distress. Tolerating room air. No IV site, MD aware. Blood sugar this AM was 213, administered 4 units Humalog insulin per sliding scale. Weight this AM was 216 lbs. All needs met. Safety, fall precautions observed. Hourly rounding performed throughout shift. Will endorse care to dayshift RN.
--- NOTE | 2019-05-20 07:25 | NUR ---
AM ROUNDS: PATIENT ON THE BED,AWAKE,ALERT AND ORIENTED X4.WITH LEFT ARM AV SHUNT.NO ACUTE DISTRESS. NO IV ACCESS,MD AWARE. CONTINUE TO MONITOR.
[2019-05-20 08:13] VITALS: BP_SYST 140
[2019-05-20] MEDS: LORATADINE 10 MG TABLET PO PRN (08:22)
[2019-05-20] MEDS: CALCITRIOL 0.25 MCG CAPSULE PO SCH (08:22)
[2019-05-20] MEDS: LEVOTHYROXINE SODIUM 0.025 MG TABLET PO SCH (08:23)
[2019-05-20] MEDS: amLODIPine BESYLATE 5 MG TABLET PO SCH (08:24)
[2019-05-20] MEDS: METOPROLOL SUCCINATE 50 MG TAB.SR.24H (TOPROL XL) PO SCH (08:25)
[2019-05-20] MEDS: LISINOPRIL 20 MG TABLET PO SCH (08:25)
[2019-05-20] MEDS: ALLOPURINOL 300 MG TABLET (ZYLOPRIM) PO SCH (08:27)
[2019-05-20] MEDS: BUDESONIDE 0.5 MG/2 ML AMPUL.NEB INH SCH (09:00)
--- NOTE | 2019-05-20 10:20 | NUR ---
Brp: Patient ambulated to the toilet with steady gait. No problem. Voided.
[2019-05-20 11:27] VITALS: BP_SYST 125
--- NOTE | 2019-05-20 11:36 | NUR ---
Blood Sugar: Blood [id number],Humalog 6 units subq given per sliding scale,with no problem.
--- NOTE | 2019-05-20 15:30 | NUR ---
Dietitian Recommendations * [facility], [facility] Please refer to Nutrition Assessment for details. Addendum: 05/20/19 at [address] Amended: Links added.
[2019-05-20 16:00] VITALS: BP_SYST 139
--- NOTE | 2019-05-20 16:20 | NUR ---
Rn rounds: Patient resting. No acute distress.
--- NOTE | 2019-05-20 17:30 | NUR ---
POST DC APPOINTMENT FOR CHF PATIENT: WITH APPT WITH DR ALMEIDA ON 05-22-19 @ 10:15AM.
[2019-05-20 17:39] VITALS: BP_SYST 125
--- NOTE | 2019-05-20 18:15 | NUR ---
D/C Patient Patient given medication reconciliation form and D/C instructions. Exit Care provided. Patient verbalized understanding. MD discussed with patient the results and treatment provided. Ambulatory with steady gait for discharge to home. Patient in stable condition, ID band removed. No iv access. Rx of lantus,novolog and albuterol puffs given to patient.List of Humulog sliding scale given as ordered. Patient educated on pain management. All belongings sent with patient.
== END 2019-05-20 18:15 | disposition home or self-care (01) | DRG 291 ==
LOC: SED 11:40 → STU 14:36
PROVIDERS: ADMIT Internal Medicine; ATTEND Internal Medicine
PROC: 5A1D70Z Performance of Urinary Filtration, Intermittent, Less than 6 Hours Per Day (ICD-10-PCS; principal; 2019-05-19)
DX: I13.2 Hypertensive heart and chronic kidney disease with heart failure and with stage 5 chronic kidney disease, or end stage renal disease (principal); J18.9 Pneumonia, unspecified organism; N18.5 Chronic kidney disease, stage 5; Z68.41 Body mass index [BMI] 40.0-44.9, adult; J44.0 Chronic obstructive pulmonary disease with (acute) lower respiratory infection; J91.8 Pleural effusion in other conditions classified elsewhere; I50.9 Heart failure, unspecified; E03.9 Hypothyroidism, unspecified; E11.22 Type 2 diabetes mellitus with diabetic chronic kidney disease; E11.40 Type 2 diabetes mellitus with diabetic neuropathy, unspecified; E11.649 Type 2 diabetes mellitus with hypoglycemia without coma; E66.01 Morbid (severe) obesity due to excess calories; E78.5 Hyperlipidemia, unspecified; J45.909 Unspecified asthma, uncomplicated; G47.33 Obstructive sleep apnea (adult) (pediatric); Z88.6 Allergy status to analgesic agent; Z88.0 Allergy status to penicillin; Z99.2 Dependence on renal dialysis; Z91.19 Patient's noncompliance with other medical treatment and regimen; Z88.2 Allergy status to sulfonamides; Z88.8 Allergy status to other drugs, medicaments and biological substances; Z79.899 Other long term (current) drug therapy
CPT/HCPCS: 36415; 71045; 80053; 82962; 83605; 83880; 84484; 85025; 85610-TC; 85730-TC; 87040-TC; 87081; 90935; 93005; 94640; 96365; 96366; 96375; 99285; G0378; J1815; J1885; J1940; J1956; J7030; J7620; J7626

== ENCOUNTER 2019-07-08 19:33 | Inpatient (IN) | payer BC, OTHER ==
[~2019-07-08] VITALS: Ht 157.5 cm; Wt 92.1 kg
[~2019-07-08 19:33] MED LIST changes: -AMIT25TA9 PO; -INSNLG7030 SUBCUT
[2019-07-08 19:44] VITALS: BP_SYST 147
--- NOTE | 2019-07-08 19:56 | NUR ---
Pt placed to ER waiting room in stable condition with family member. Urine specimen cup provided.
[2019-07-08 20:25] LABS: BASOPHILS # (AUTO) 0.1 K/uL (0.0-0.2); BASOPHILS % (AUTO) 0.6 % (0.0-2.0); EOSINOPHILS # (AUTO) 0.3 K/uL (0.0-0.4); EOSINOPHILS % (AUTO) 3.1 % (0.0-4.0); HEMATOCRIT 27.4 % (36-48); MEAN CORPUSCULAR HEMOGLOBIN 30 pg (27-31); MEAN CORPUSCULAR HGB CONC 33 % (32-36); MEAN CORPUSCULAR VOLUME 92 fL (79.0-98.0); MONOCYTES # (AUTO) 0.5 K/uL (0.0-1.0); MONOCYTES % (AUTO) 5.6 % (1.7-9.3); NEUTROPHILS # (AUTO) 7.4 K/uL (1.8-7.7); NEUTROPHILS % (AUTO) 79.7 % (40.0-70.0); PLATELET COUNT (AUTO) 204 K/uL (130-430); RED BLOOD CELL COUNT(AUTO) 2.97 MIL/uL (4.2-6.2); RED CELL DISTRIBUTION WIDTH 18.3 % (9.0-15.0); WHITE BLOOD COUNT (AUTO) 9.3 K/uL (4.8-10.8)
[2019-07-08 20:28] LABS: POTASSIUM 4.9 mmol/L (3.5-5.1)
[2019-07-08 20:33] LABS: CREATININE 8.24 mg/dL (0.55-1.30)
[2019-07-08 20:39] LABS: TOTAL BILIRUBIN 0.5 mg/dL (0.0-1.0)
[2019-07-08 20:40] LABS: ALBUMIN 3.3 g/dL (3.4-4.8)
--- NOTE | 2019-07-08 20:45 | NUR ---
Pt ambulating about ER waiting room with steady gait, respirations even and non-labored, speaks in full sentences, NAD.
[2019-07-08 21:06] LABS: INR 1.1 (0.8-1.2); PROTHROMBIN TIME 11.2 SECS (9.5-12.5)
--- NOTE | 2019-07-08 21:08 | NUR ---
Pt placed to ER bed 01, to gown, to spout worker. Pt report given to JYOTSNA Vazquez.
--- NOTE | 2019-07-08 21:23 | NUR ---
Note chandaone in EDM - 07/08/19 at 2142 by DERRICK Pt states chest tightness but no pain at this time. Pt shunt in left arm. Bruit auscultated and thrill palpated.
--- NOTE | 2019-07-08 21:23 | NUR ---
Pt states midsternal chest tightness but no pain at this time. Pt shunt in left arm. Bruit auscultated and thrill palpated.
--- NOTE | 2019-07-08 21:23 | NUR ---
Pt presents to ER with daughter with c/o SOB. Pt A&Ox4. Pt states SOB began this afternoon while sitting in car. Pt states breathing is easier when sitting up and SOB gets worse when laying down. Pt states she is on dialysis and goes [facility] and began to go on Saturdays. Pt states she went this past Sunday but missed yesterday's dialysis. Pt presents with no use of accessory muscles use while breathing. Pt oxygen saturation 95% on room air. Breath sounds bilaterally clear. Will continue to monitor.
--- NOTE | 2019-07-08 21:42 | NUR ---
Dr. Witt at bedside.
[2019-07-08] MEDS ORDERED: NITROGLYCERIN 1 INCH (GM) OINT. TP ONE (22:00)
[2019-07-08 22:07] LABS: BILIRUBIN,URINE NEGATIVE (NEGATIVE); CLARITY/URINE CLEAR (CLEAR); COLOR,URINE YELLOW (YELLOW); GLUCOSE,URINE 3+ (NEGATIVE); KETONES,URINE NEGATIVE (NEGATIVE); LEUKOCYTE ESTERASE ,URINE NEGATIVE (NEGATIVE); NITRITE, URINE NEGATIVE (NEGATIVE); PH,URINE 7.5 (5.0-8.0); PROTEIN URINE 3+ (NEGATIVE); UROBILINOGEN,URINE 0.2 (0.2-1.0)
--- NOTE | 2019-07-08 22:42 | NUR ---
Patient will be admitted to care of Amber. Admitted to Telemetry unit. Will go to room 125A. Belongings list completed. Complete and up to date summary report printed. SBAR report to be given at bedside with opportunity for questions.
[2019-07-08] MEDS ORDERED: INSULIN REGULAR, HUMAN 10 UNITS/0.1 ML INJ IVP ONE (22:45)
[2019-07-08 22:55] LABS: BLOOD, URINE TRACE (NEGATIVE)
[2019-07-08] MEDS ORDERED: ASA81 PO (22:55)
--- NOTE | 2019-07-08 22:55 | NUR ---
Medication reconciliation completed with information provided by patient. Any prior medication reconciliation on file was reviewed and corrected.
[2019-07-08 22:57] LABS: BACTERIA,URINE RARE /HPF (None Seen); MUCUS,URINE None Seen /LPF (None Seen); RBC,URINE 0-3 /HPF (0-3); WBC,URINE 0-3 /HPF (0-3)
--- NOTE | 2019-07-08 23:20 | NUR ---
# 20 gauge angiocath placed to RAC. Use of asceptic technique. Opsite placed over site. Blood return noted. Flushed with 10 cc of normal saline. No evidence of infiltration noted. Patient tolerated well.
--- NOTE | 2019-07-08 23:43 | NUR ---
Transfer to Telemetry room 125A via ACLS protocol. Licensed nurse present. IV present no signs or symptoms of infiltration.
--- NOTE | 2019-07-08 23:50 | NUR ---
ADMISSION NOTE Received patient from ER via katey, received report from JYOTSNA baum. Patient admitted with diagnosis of chf, esrd. Patient oriented to hospital routine, call light, toileting and safety-patient verbalized understanding.
[2019-07-08 23:55] VITALS: BP_SYST 163
--- NOTE | 2019-07-09 00:50 | NUR ---
Patient is complaining of severe itchiness. Patient is moaning and crying while gripping her right ac, stating that the securement tape that is ontop of the IV is causing severe itchiness. States that everytime the tegaderm is applied onto her, she gets an allergic reaction, and she always warns the ER staff but the did not listen to her. Patient refuses IV site at this time. Explained risks and benefits, but patient still refuses. IV site removed from the patient for comfort. Charge nurse made aware.
--- NOTE | 2019-07-09 00:51 | NUR ---
Ketan Clark s/w Steph
--- NOTE | 2019-07-09 01:00 | NUR ---
Refuses bed alarm. Call light within reach. Encouraged to call for assistance.
--- NOTE | 2019-07-09 01:21 | NUR ---
PAGED I PAGED , CLARISSA @[phone] I SPOKE WITH GLORIA DANIEL
--- NOTE | 2019-07-09 02:04 | NUR ---
PAGED I PAGED DR. ROMO I SPOKE WITH GLORIA DANIEL THIS TIME HE DID ANSWERED
--- NOTE | 2019-07-09 02:09 | NUR ---
Dr Clark / Orders Informed Dr Clark regarding the patient not having an IV access due to an allergic reaction to Tegaderm. Patient refused IV site due to the itchiness from the adhesive. Dr Clark ordered Benadryl 50mg Q6PRN for itchy. Also patient requested for sleeping pill, Dr Clark ordered Trazodone 100mg QHS for insomnia. Patient also stated that she is constipated, Dr Clark ordered Dulculax 5mg.
[2019-07-09] MEDS ORDERED: BISACODYL 5 MG TABLET.DR (DULCOLAX) PO PRN ×2 (02:15→15:15)
[2019-07-09] MEDS ORDERED: DIPHENHYDRAMINE HCL 50 MG CAPSULE PO PRN (02:15)
[2019-07-09] MEDS: traZODone HCL 50 MG TABLET (DESYREL) PO PRN ×2 (02:24→21:15)
--- NOTE | 2019-07-09 02:25 | NUR ---
PATIENT IS COMPLAINING THAT THE ROOM IS TOO COLD. SECURITY NOTIFIED TO MAKE THE ROOM WARMER. ALSO PROVIDED PATIENT WITH WARM BLANKETS NEEDED.
--- NOTE | 2019-07-09 03:30 | NUR ---
Resting comfortably in bed, eyes closed. Breathing even and unlabored with visible chest rise and fall noted. No SOB, no acute distress, no signs of pain or facial grimacing noted. Bed is locked, lowest position, 2x side rails up. Call light within reach.
[2019-07-09 04:00] VITALS: BP_SYST 136
--- NOTE | 2019-07-09 04:40 | NUR ---
CONSULT: CONSULT CALLED FOR DR. NARA ZUÑIGA I SPOKE WITH GLORIA DANIEL REASON FOR CONSULT: END STAGE RENAL FAILURE REQUESTING CONSULT: DR. ROMO
--- NOTE | 2019-07-09 04:50 | NUR ---
Patient is complaining of SOB and dizziness, sitting up at edge of the bed. Nasal cannula was not on the patient. Assisted patient to apply Nasal cannula at 1L, and encouraged deep breathing. O2 sat 99%. Patient assisted back into bed. Encouraged patient to call for assistance.
--- NOTE | 2019-07-09 05:05 | NUR ---
PAGED I PAGED DR. ROMO @ [phone] I SPOKE WITH GLORIA DANIEL
--- NOTE | 2019-07-09 05:23 | NUR ---
Patient still complaining of SOB on 1L NC, O2 sat 99%-100%. Anterior and Posterior lungs clear to auscultation on inspiration and expiration bilaterally. No retractions, no wheezing. Patient states she is unable to lie down due to her SOB. Still awaiting for Dr Clark to call back.
--- NOTE | 2019-07-09 05:26 | NUR ---
Dr Clark called the nurses station. Informed him that the patient is complaining of SOB and difficulty breathing. Dr Clark stated that he wants to try a breathing treatment, and that he will personally place the orders into [employer] himself. Will await for orders.
[2019-07-09] MEDS ORDERED: ALBUTEROL SULFATE 0.083% 2.5 MG/3 ML VIAL.NEB INH PRN (05:30)
[2019-07-09] MEDS ORDERED: IPRATROPIUM BROM 0.5 MG/2.5 ML VIAL.NEB (ATROVENT) INH PRN (05:30)
--- NOTE | 2019-07-09 05:37 | NUR ---
Dr Clark called the nurses station. Stated that he would like a STAT dialysis order for the patient. [facility]-pump house operator notified, and Lanny stated that Dr Clark is not permitted to order dialysis for patients because he is not a Regional Training Manager. Lanny referred me to contact the public works laborer that is on the case to set the parameters for the hemodialysis.
[2019-07-09] MEDS: ALBUTEROL SULFATE 0.083% 2.5 MG/3 ML VIAL.NEB INH SCH ×6 (05:40→23:00)
[2019-07-09 05:49] VITALS: BP_SYST 147
--- NOTE | 2019-07-09 05:49 | NUR ---
Dr Arreguin contacted regarding Dr Pacheco Stat hemodialysis orders. Dr Arreguin telephone ordered hemodialysis with his own parameters. Addendum: 07/09/19 at 0550 by Amy Mcdonald RN [facility]uation of [facility] aware of stat hemod[facility] orders, and stated she will call the hemodialysis nurse.
[2019-07-09] MEDS ORDERED: IPRATROPIUM BROM 0.5 MG/2.5 ML VIAL.NEB (ATROVENT) INH ONE (05:54)
[2019-07-09] MEDS ORDERED: ALBUTEROL SULFATE 0.083% 2.5 MG/3 ML VIAL.NEB INH ONE (05:54)
--- NOTE | 2019-07-09 06:32 | NUR ---
Closing Notes Patient AAOx4, resting comfortably in bed. Still SOB, on 1L NC, awaiting for hemodialysis nurse. no acute distress, no complaints of pain. Bed is locked, lowest position, 2x side rails up. Call light is within reach. Fall and safety precautions maintained. All needs have been met during this shift. Will endorse care to oncoming dayshift nurse.
--- NOTE | 2019-07-09 06:39 | NUR ---
Offered to start an IV. Patient refused, stating that the sticky clear dressing tape from the IV kit makes her itchy.
[2019-07-09] MEDS: IPRATROPIUM BROM 0.5 MG/2.5 ML VIAL.NEB (ATROVENT) INH SCH ×5 (07:00→23:00)
[2019-07-09 07:54] VITALS: BP_SYST 152
--- NOTE | 2019-07-09 08:00 | NUR ---
Note Pt has no IV access, states the stickiness of Tegaderm makes her itchy - Dr Clark aware. Pt was moved from room 25A to 22A - as the sink in room 25A is overflowing for Hemodialysis. multi needle machine operator Patricia is in the room starting dialysis at this time. Pt has O2 at 1L/nc on - no SOB/resp distress or severe chest pain/discomfort noted at this time. Pt next to nurses' station for close observation for needs and care. Call light within reach.
--- NOTE | 2019-07-09 10:00 | NUR ---
Note Pt has dialysis still going on - all 08am-noon medications on hold till dialysis is done. Pt waiting for Dr Clark to do rounds in her room to speak to MD about her concerns. Dr Clark is on the floor doing rounds. Pt stable at this time.Tele unit attached andintact all shift. Call light within reach.
[2019-07-09] MEDS: ASPIRIN 81 MG TAB.CHEW PO SCH (10:57)
[2019-07-09] MEDS: LEVOTHYROXINE SODIUM 0.025 MG TABLET PO SCH (10:57)
[2019-07-09] MEDS: amLODIPine BESYLATE 5 MG TABLET PO SCH ×2 (10:57→21:16)
[2019-07-09] MEDS: METOPROLOL SUCCINATE 50 MG TAB.SR.24H (TOPROL XL) PO SCH ×2 (10:57→21:16)
[2019-07-09] MEDS: CALCITRIOL 0.25 MCG CAPSULE PO SCH (10:58)
[2019-07-09] MEDS: LISINOPRIL 20 MG TABLET PO SCH (10:58)
--- NOTE | 2019-07-09 11:32 | NUR ---
CONSULT: CONSULT CALLED FOR Mercy KLEIN I SPOKE WITH FLORIAN FROM EXCHANGE REASON FOR CONSULT: VAGINAL YEAST INFECTION REQUESTING CONSULT: DR. ROMO .NET PROGRAMMER PHONE NUMBER: [phone]
[2019-07-09 12:27] VITALS: BP_SYST 134
[2019-07-09] MEDS ORDERED: BISACODYL 5 MG TABLET.DR (DULCOLAX) PO ONE (15:15)
--- NOTE | 2019-07-09 15:29 | NUR ---
CONSULTATION: REASON FOR CONSULT: DM, DIABETIC NEUROPATHY CONSULTING PHYSICIAN : NASRIN BOWLES RAMBOD MD ORDERED BY: ZARA BAINS SPOKE WITH JOSE [phone]
--- NOTE | 2019-07-09 16:25 | NUR ---
Note Dr Arreguin called for update on pt's status at 1420, and then came to floor to pt's bed side to assess pt at 1500. 1620 - Dr Miller came to pt's bedside to assess pt for diabetes and neuropathy. Questions/concerns were answered at this time. Pt sitting in bed and denies any needs at this time. Pt uses BSC - states toilet in bathroom is too low for her use. Pt ambulates out of bed to BSC independently with steady gait. Call light within reach.
[2019-07-09] MEDS ORDERED: DEXTROSE 50% JECT 50 ML DISP.SYRIN IVP PRN (16:30)
[2019-07-09 16:32] VITALS: BP_SYST 138
[2019-07-09] MEDS: INSULIN LISPRO SLIDING SCALE 100 UNITS/ML VIAL (humaLOG) SUBCUT PRN ×2 (16:47→21:22)
[2019-07-09] MEDS: INSULIN NPH/REGULAR 70-30, 100 UNITS/ML, 10 ML VIAL SUBCUT SCH (16:48)
--- NOTE | 2019-07-09 18:05 | NUR ---
Note Pt sitting on side of bed eating her dinner. No SOB/resp distress or pain/discomfort noted at this time. Pt refuses any IV insertion at this time. Pt was checked on q1' and PRN all shift for needs and care. Pt next to nurses' station for close observation for needs and care. No needs noted at this time. Call light within reach.
--- NOTE | 2019-07-09 20:00 | NUR ---
INITIAL NOTES: PT IS ALERT AND ORIENTED , NOT IN ANY ACUTE DISTRESS; SITTING ON A CHAIR AT BEDSIDE ; ASSESSMENT DONE ; PT DOESNT HAVE ANY IV ACCESS ; PT REFUSED TO INSERT A NEW ONE , PT STATED SHE IS ALLERGIC TO THE TAPES AND IT ITCHES A LOT , " I AM NOT CONCERNED ABOUT IT AT THIS TIME" TRY TO EDUCATE THE PT THE NEED OF IT , STILL PT REFUSED TO HAVE IV ACCESS Addendum: 07/10/19 at 0007 by Isaías Coronel RN PT IS COMFORTABLE ; ALL NEEDS ATTENDED ; WILL CONTINUE TO MONITOR PT . Addendum: 07/10/19 at 0017 by Isaías Coronel RN LEFT UPPER ARM AV SHUNT WITH [place] ANF THRILL , NO C/O ANY VAGINAL ITCHING AT THIS TIME . WILL CONTINUE TO MONITOR PT
[2019-07-09 21:00] VITALS: BP_SYST 133
--- NOTE | 2019-07-09 21:25 | NUR ---
MEDICATION: DUE MEDS GIVEN AFTER EXPLAINING TO THE PT , PT IS COMFORTABLE ; NOT IN ANY ACUTE DISTRESS; WILL CONTINUE TO MONITOR PT .
--- NOTE | 2019-07-09 22:15 | NUR ---
SLEEPING: PT IS SLEEPING , COMFORTABLE ; NOT IN ANY ACUTE DISTRESS ; WILL CONTINUE TO MONITOR PT .
[2019-07-10 00:06] VITALS: BP_SYST 126
--- NOTE | 2019-07-10 00:18 | NUR ---
RN ROUNDS: PT IS SLEEPING ON AND OFF , NOT IN ANY ACUTE DISTRESS ; WILL CONTINUE TO MONITOR PT .
--- NOTE | 2019-07-10 01:56 | NUR ---
RN ROUNDS: PT IS SLEEPING ,NOT IN ANY ACUTE DISTRESS ; RESPIRATION IS EVEN AND NON LABORED ; WILL CONTINUE TO MONITOR PT .
[2019-07-10] MEDS: ALBUTEROL SULFATE 0.083% 2.5 MG/3 ML VIAL.NEB INH SCH ×6 (03:00→23:00)
[2019-07-10] MEDS: IPRATROPIUM BROM 0.5 MG/2.5 ML VIAL.NEB (ATROVENT) INH SCH ×6 (03:00→23:00)
--- NOTE | 2019-07-10 03:20 | NUR ---
MD ROUNDS: DR Luc AWAD MADE ROUNDS, STATED HE WILL ORDER MEDICATION .
--- NOTE | 2019-07-10 05:00 | NUR ---
RN ROUNDS: PT IS AWAKE , NOT IN ANY ACUTE DISTRESS; WILL CONTINUE TO MONITOR PT.
[2019-07-10] MEDS: INSULIN NPH/REGULAR 70-30, 100 UNITS/ML, 10 ML VIAL SUBCUT SCH ×2 (06:05→17:55)
--- NOTE | 2019-07-10 06:20 | NUR ---
RN NOTES; PT IS AWAKE , BS CHECKED AND INSULIN GIVEN BY RN , PROVIDED SANDWICH TO THE PT .CALLED KITCHEN TO GET BREAKFAST EARLY .
--- NOTE | 2019-07-10 07:30 | NUR ---
CLOSING NOTES: REPORTGIVEN TO RN AT BEDSIDE ; PT IS EATING HER BREAKFAST . NOT IN ANY ACUTE DISTRESS.
--- NOTE | 2019-07-10 07:45 | NUR ---
AM NOTES RECEIVED PT IN BED. A/OX4. DENIES ANY PAIN OR SOB AT THIS TIME. VITALS STABLE NOT IN ACUTE DISTRESS. PT DOES NOT HAVE IV LINE. PT REFUSED TO HAVE IV LINE DUE TO TAPE.WILL NOTIFY . SAFETY AND FALL PRECAUTIONS MAINTAINED. CALL LIGHT WITHIN REACH. POC DISCUSSED WITH PT . VERBALIZED UNDERSTANDING. WILL CONTINUE TO MONITOR
[2019-07-10 07:55] VITALS: BP_SYST 110
[2019-07-10] MEDS: CALCITRIOL 0.25 MCG CAPSULE PO SCH (09:19)
[2019-07-10] MEDS: LEVOTHYROXINE SODIUM 0.025 MG TABLET PO SCH (09:27)
[2019-07-10] MEDS: amLODIPine BESYLATE 5 MG TABLET PO SCH ×2 (09:27→20:20)
[2019-07-10] MEDS: METOPROLOL SUCCINATE 50 MG TAB.SR.24H (TOPROL XL) PO SCH ×2 (09:28→20:20)
[2019-07-10] MEDS: ASPIRIN 81 MG TAB.CHEW PO SCH (09:28)
[2019-07-10] MEDS: LISINOPRIL 20 MG TABLET PO SCH (09:29)
[2019-07-10] MEDS: CLOTRIMAZOLE 1% TOPICAL CREAM 15 GM TP SCH ×2 (09:40→20:21)
[2019-07-10] MEDS: INSULIN LISPRO SLIDING SCALE 100 UNITS/ML VIAL (humaLOG) SUBCUT PRN ×3 (11:54→20:28)
--- NOTE | 2019-07-10 12:30 | NUR ---
rounds pt stable resting comfortable. denies any pain or sob. needs attended. no s/s of distress. noted. seen by dr underwood
[2019-07-10 12:46] VITALS: BP_SYST 128
--- NOTE | 2019-07-10 14:33 | NUR ---
DC PLANNING RECEIVED A CALL FROM BENJAMIN SCHULTE # [phone]. JCC JYOTSNA CM
--- NOTE | 2019-07-10 14:54 | NUR ---
rounds pt stable . sitting in chair. denies any pain or orther discomfort. no s/s of distress noted
--- NOTE | 2019-07-10 16:44 | NUR ---
Dietitian Recommendations * Recommend CCHO, renal diet LP, RD Please refer to Nutrition Assessment for details. Addendum: 07/10/19 at [address] Amended: Links added.
[2019-07-10 16:55] VITALS: BP_SYST 109
--- NOTE | 2019-07-10 18:26 | NUR ---
rounds pt stable denies any pain or orther discomfort. no s/s of distress noted eating dinner. dr page called received order for dialysis. carried out
--- NOTE | 2019-07-10 19:30 | NUR ---
OPENING NOTES Pt and endorsement received from day shift nurse. Pt is AAOx4, sitting on a chair while watching tv. No complains of pain or discomfort at this time. No signs of acute distress or SOB noted. Encouraged to use call light when needed. Will continue to monitor.
--- NOTE | 2019-07-10 19:30 | NUR ---
CLOSING NOTES DENIES ANY PAIN OR SOB AT THIS TIME. VITALS STABLE NOT IN ACUTE DISTRESS. SAFETY PRECAUTIONS MAINTAINED. CALL LIGHT WITHIN REACH. REPORT GIVEN TO NIGHT NURSE
[2019-07-10 20:17] VITALS: BP_SYST 131
--- NOTE | 2019-07-10 20:30 | NUR ---
ROUNDS All due meds given and pt tolerated well. Pt complained of left arm pain and pt asking for tylenol. Glenn gan MD.
--- NOTE | 2019-07-10 21:08 | NUR ---
PAGED: PAGED DR. ROMO REGARDING ORDERS SPOKE WITH CHRIS
[2019-07-10] MEDS: traZODone HCL 50 MG TABLET (DESYREL) PO PRN (21:37)
--- NOTE | 2019-07-10 23:20 | NUR ---
ROUNDS Pt is resting in bed with both eyes closed, with visible chest rise and fall with non-labored breathing noted. No complains of pain and no signs of acute distress noted. Safety precautions in place with 2 side rails up, wheels locked, and bed in lowest level. Call light with pt. Will continue to monitor.
[2019-07-11 00:08] VITALS: BP_SYST 127
--- NOTE | 2019-07-11 03:00 | NUR ---
ROUNDS Pt is resting in bed with both eyes closed, with visible chest rise and fall with non-labored breathing noted. Pt is easily arousable. No signs of acute distress or SOB noted. No needs at this time. Safety precautions in place and call light with pt. Will continue to monitor.
[2019-07-11] MEDS: INSULIN NPH/REGULAR 70-30, 100 UNITS/ML, 10 ML VIAL SUBCUT SCH (06:12)
[2019-07-11] MEDS: INSULIN LISPRO SLIDING SCALE 100 UNITS/ML VIAL (humaLOG) SUBCUT PRN (06:13)
--- NOTE | 2019-07-11 06:30 | NUR ---
CLOSING NOTES Pt is resting in bed with both eyes closed, with visible chest rise and fall with non-labored breathing noted. No complains of pain or discomfort at this time. No signs of acute distress or SOB noted. Pt is easily arousable. All needs attended throughout the shift. Safety precautions maintained with 2 side rails up, wheels locked, and bed in lowest level. Call light with pt. Will endorse to day shift nurse.
--- NOTE | 2019-07-11 07:20 | NUR ---
OPENING NOTES RECEIVED BEDSIDE SBAR FROM NIGHT RN, PATIENT SITTING IN CHAIR, ALERT, ORIENTED, WATCHING TV, REGULAR RESPIRATIONS EVEN NON LABORED, BED IN LOW AND LOCKED POSITION, CALL LIGHT WITH IN REACH
[2019-07-11 08:00] VITALS: BP_SYST 131
[2019-07-11] MEDS: ALBUTEROL SULFATE 0.083% 2.5 MG/3 ML VIAL.NEB INH SCH ×2 (08:00→11:00)
[2019-07-11] MEDS: IPRATROPIUM BROM 0.5 MG/2.5 ML VIAL.NEB (ATROVENT) INH SCH ×2 (08:00→11:00)
[2019-07-11] MEDS ORDERED: ACETAMINOPHEN 325 MG TABLET PO PRN (08:45)
[2019-07-11] MEDS: LEVOTHYROXINE SODIUM 0.025 MG TABLET PO SCH (09:18)
[2019-07-11] MEDS: CALCITRIOL 0.25 MCG CAPSULE PO SCH (09:18)
[2019-07-11] MEDS: ASPIRIN 81 MG TAB.CHEW PO SCH (09:18)
[2019-07-11] MEDS: CLOTRIMAZOLE 1% TOPICAL CREAM 15 GM TP SCH (09:20)
--- NOTE | 2019-07-11 10:10 | NUR ---
dialysis Dialysis nurse at bedside
[2019-07-11 12:00] VITALS: BP_SYST 117
[2019-07-11 13:10] VITALS: BP_SYST 135
--- NOTE | 2019-07-11 13:10 | NUR ---
Hemodialysis hemodialysis completed by director of cloud services, 3L out, no acute distress noted, dialysis site to left upper arm clean, dry, and intact, no bleeding noted.
--- NOTE | 2019-07-11 13:59 | NUR ---
Paged Physician Paged Dr. Clark regarding discharge home for patient, awaiting call back. Addendum: 07/11/19 at 1405 by Amanda Lewis RN Spoke with Dr. Clark, informed him that hemodialysis was completed at 1310, 3L out, informed him that patient is requesting to be discharged home, per Dr. Clark if patient is clear to go home by vascular neurologist patient can be d/c home, paged Dr. Cunningham (roll contour grinder for Dr. Arreguin), awaiting call back. Addendum: 07/11/19 at 1407 by Amanda Lewis RN Spoke with Dr. Montero, informed him that hemodialysis was completed at 1310, 3L out, per Dr. Montero patient is cleared for discharge home.
[2019-07-11] MEDS: amLODIPine BESYLATE 5 MG TABLET PO SCH (14:16)
[2019-07-11] MEDS: LISINOPRIL 20 MG TABLET PO SCH (14:17)
[2019-07-11] MEDS: METOPROLOL SUCCINATE 50 MG TAB.SR.24H (TOPROL XL) PO SCH (14:18)
[2019-07-11 14:23] VITALS: BP_SYST 124
[2019-07-11 15:00] VITALS: BP_SYST 144
--- NOTE | 2019-07-11 15:24 | NUR ---
discharge note provided patient with discharge packet and instructions, patient verbalized understanding, patient has no iv access, dialysis site, right upper arm, clean, dry, no bleeding, hospital id band removed, steady gate noted, no acute distress noted, patient denies any pain, patient accompanied by daughter for discharge home, all belongings sent with patient, patient taken to parking lot via wheel chair
[2019-07-11] MEDS ORDERED: INSULIN NPH/REGULAR 70-30, 100 UNITS/ML, 10 ML VIAL SUBCUT SCH (17:00)
== END 2019-07-11 15:06 | disposition home or self-care (01) | DRG 640 ==
LOC: SED 19:33 → STU 22:35
PROVIDERS: ADMIT Internal Medicine Hospice and Palliative Medicine; ATTEND Internal Medicine Hospice and Palliative Medicine
PROC: 5A1D70Z Performance of Urinary Filtration, Intermittent, Less than 6 Hours Per Day (ICD-10-PCS; principal; 2019-07-09)
PROC: 5A1D70Z Performance of Urinary Filtration, Intermittent, Less than 6 Hours Per Day (ICD-10-PCS; 2019-07-11)
DX: E87.70 Fluid overload, unspecified (principal); N18.6 End stage renal disease; I13.2 Hypertensive heart and chronic kidney disease with heart failure and with stage 5 chronic kidney disease, or end stage renal disease; I50.9 Heart failure, unspecified; E66.9 Obesity, unspecified; E11.65 Type 2 diabetes mellitus with hyperglycemia; E11.22 Type 2 diabetes mellitus with diabetic chronic kidney disease; E03.9 Hypothyroidism, unspecified; D63.8 Anemia in other chronic diseases classified elsewhere; B35.6 Tinea cruris; B37.9 Candidiasis, unspecified; G47.33 Obstructive sleep apnea (adult) (pediatric); Z88.0 Allergy status to penicillin; Z88.2 Allergy status to sulfonamides; Z91.19 Patient's noncompliance with other medical treatment and regimen; Z91.15 Patient's noncompliance with renal dialysis; Z99.2 Dependence on renal dialysis; Z79.4 Long term (current) use of insulin; Z88.5 Allergy status to narcotic agent; Z88.8 Allergy status to other drugs, medicaments and biological substances; Z79.899 Other long term (current) drug therapy; Z79.82 Long term (current) use of aspirin; Z90.49 Acquired absence of other specified parts of digestive tract; Z90.710 Acquired absence of both cervix and uterus; Z98.51 Tubal ligation status; Z68.37 Body mass index [BMI] 37.0-37.9, adult; Z91.013 Allergy to seafood
CPT/HCPCS: 36415; 71045; 80053; 81000-TC; 82962; 83036; 83880; 84443-TC; 84484; 85025; 85610-TC; 85730-TC; 87081; 93005; 94640; 94760; 96374; 99285; G0378; J1815; J7030; J7613; Q0163

== ENCOUNTER 2019-08-03 19:41 | Inpatient (IN) | payer BC, OTHER ==
[~2019-08-03] VITALS: Ht 157.5 cm; Wt 89.9 kg
[2019-08-03 19:41] VITALS: BP_SYST 150
[~2019-08-03 19:41] MED LIST changes: -ALL300 PO; +ASA81 PO; -ESLI200T PO
[2019-08-03 20:15] VITALS: BP_SYST 141
[2019-08-03] MEDS ORDERED: ASPIRIN 81 MG TAB.CHEW PO ONE (20:30)
[2019-08-03 21:03] LABS: HEMATOCRIT 27.2 % (36-48)
[2019-08-03 21:07] LABS: BASOPHILS # (AUTO) 0.1 K/uL (0.0-0.2); BASOPHILS % (AUTO) 0.6 % (0.0-2.0); EOSINOPHILS # (AUTO) 0.3 K/uL (0.0-0.4); EOSINOPHILS % (AUTO) 3.1 % (0.0-4.0); HEMOGLOBIN 9.4 g/dL (12.0-16.0); LYMPHOCYTES # (AUTO) 1.6 K/uL (1.0-5.5); LYMPHOCYTES % (AUTO) 17.2 % (20.5-51.5); MEAN CORPUSCULAR HEMOGLOBIN 32 pg (27-31); MEAN CORPUSCULAR HGB CONC 35 % (32-36); MEAN CORPUSCULAR VOLUME 94 fL (79.0-98.0); MONOCYTES # (AUTO) 0.5 K/uL (0.0-1.0); MONOCYTES % (AUTO) 5.2 % (1.7-9.3); NEUTROPHILS # (AUTO) 6.8 K/uL (1.8-7.7); NEUTROPHILS % (AUTO) 73.9 % (40.0-70.0); PLATELET COUNT (AUTO) 245 K/uL (130-430); RED CELL DISTRIBUTION WIDTH 16.8 % (9.0-15.0); WHITE BLOOD COUNT (AUTO) 9.2 K/uL (4.8-10.8)
[2019-08-03 21:10] LABS: CALCIUM 10.9 mg/dL (8.4-11.0); CREATININE 7.33 mg/dL (0.55-1.30); POTASSIUM 4.6 mmol/L (3.5-5.1)
[2019-08-03 21:13] LABS: INR 1.1 (0.8-1.2); PROTHROMBIN TIME 11.2 SECS (9.5-12.5)
[2019-08-03 21:16] LABS: ALBUMIN 3.3 g/dL (3.4-4.8); TOTAL BILIRUBIN 0.5 mg/dL (0.0-1.0)
[2019-08-03] MEDS ORDERED: HYDROcodone/ACETAMIN 10-325 MG TAB PO PRN (22:00)
[2019-08-03] MEDS ORDERED: LORATADINE 10 MG TABLET PO PRN (22:00)
[2019-08-03] MEDS ORDERED: LORazepam 2 MG/ML VIAL IVP PRN (22:00)
[2019-08-03] MEDS ORDERED: ACETAMINOPHEN 325 MG TABLET PO PRN (22:00)
[2019-08-03] MEDS ORDERED: ONDANSETRON HCL 4 MG/2 ML VIAL IVP PRN (22:00)
[2019-08-03] MEDS ORDERED: HYDROcodone/ACETAMIN 5-325 MG TAB (NORCO/ VICODIN) PO PRN (22:00)
[2019-08-03] MEDS: traZODone HCL 50 MG TABLET (DESYREL) PO SCH (22:30)
[2019-08-03 22:50] VITALS: BP_SYST 147
[2019-08-03] MEDS: NORMAL SALINE 5 ML DISP.SYRIN IVF SCH (23:00)
[2019-08-04] MEDS ORDERED: traZODone HCL 50 MG TABLET (DESYREL) ONE (00:27)
[2019-08-04] MEDS ORDERED: LORATADINE 10 MG TABLET ONE (00:28)
[2019-08-04 02:32] VITALS: BP_SYST 145
[2019-08-04] MEDS ORDERED: NITROGLYCERIN 0.4 MG TAB.SUBL SL PRN (04:15)
[2019-08-04] MEDS: NORMAL SALINE 5 ML DISP.SYRIN IVF SCH ×3 (05:24→21:05)
[2019-08-04] MEDS: LEVOTHYROXINE SODIUM 0.025 MG TABLET PO SCH (06:12)
[2019-08-04 06:56] LABS: BASOPHILS % (AUTO) 0.6 % (0.0-2.0); EOSINOPHILS # (AUTO) 0.3 K/uL (0.0-0.4); EOSINOPHILS % (AUTO) 3.5 % (0.0-4.0); HEMATOCRIT 27.5 % (36-48); HEMOGLOBIN 9.1 g/dL (12.0-16.0); LYMPHOCYTES # (AUTO) 1.5 K/uL (1.0-5.5); LYMPHOCYTES % (AUTO) 17.5 % (20.5-51.5); MEAN CORPUSCULAR HEMOGLOBIN 31 pg (27-31); MEAN CORPUSCULAR HGB CONC 33 % (32-36); MEAN CORPUSCULAR VOLUME 94 fL (79.0-98.0); MONOCYTES # (AUTO) 0.4 K/uL (0.0-1.0); NEUTROPHILS # (AUTO) 6.2 K/uL (1.8-7.7); NEUTROPHILS % (AUTO) 73.4 % (40.0-70.0); PLATELET COUNT (AUTO) 240 K/uL (130-430); RED BLOOD CELL COUNT(AUTO) 2.94 MIL/uL (4.2-6.2); RED CELL DISTRIBUTION WIDTH 16.8 % (9.0-15.0); WHITE BLOOD COUNT (AUTO) 8.4 K/uL (4.8-10.8)
[2019-08-04 07:32] LABS: ALBUMIN 3.2 g/dL (3.4-4.8); CALCIUM 10.8 mg/dL (8.4-11.0); PHOSPHORUS 7.6 mg/dL (2.7-4.5); POTASSIUM 4.1 mmol/L (3.5-5.1); TOTAL BILIRUBIN 0.5 mg/dL (0.0-1.0)
[2019-08-04 07:43] LABS: CREATININE 7.97 mg/dL (0.55-1.30)
[2019-08-04 08:11] VITALS: BP_SYST 151
[2019-08-04] MEDS ORDERED: INSULIN REGULAR, HUMAN 100 UNITS/ML, 10 ML VIAL (humuLIN R) SUBCUT PRN (08:15)
[2019-08-04] MEDS ORDERED: GLUCOSE 15 GM GEL (in 37.5 GM TUBE) PO PRN (08:45)
[2019-08-04] MEDS ORDERED: D5W 1,000 ML IV PRN (08:45)
[2019-08-04] MEDS ORDERED: DEXTROSE 50%-WATER 50 ML DISP.SYRIN IVP PRN (08:45)
[2019-08-04] MEDS ORDERED: CALCITRIOL 0.25 MCG CAPSULE PO SCH (09:00)
[2019-08-04] MEDS ORDERED: NITROGLYCERIN 1 INCH (GM) OINT. TP SCH (09:00)
[2019-08-04] MEDS ORDERED: LISINOPRIL 20 MG TABLET PO SCH (09:00)
[2019-08-04] MEDS ORDERED: amLODIPine BESYLATE 5 MG TABLET PO SCH (09:00)
[2019-08-04] MEDS: NITROGLYCERIN 0.2 MG/HR PATCH.TD24 TD SCH (09:10)
[2019-08-04] MEDS: INSULIN REGULAR, HUMAN 100 UNITS/ML, 10 ML VIAL (humuLIN R) SUBCUT PRN ×3 (12:04→21:02)
[2019-08-04 12:30] VITALS: BP_SYST 139
[2019-08-04] MEDS: NEPHROVITE, (FOLIC ACID/VITAMIN B COMP W-C 1 TAB) PO SCH (14:16)
[2019-08-04] MEDS: METOPROLOL SUCCINATE 50 MG TAB.SR.24H (TOPROL XL) PO SCH ×2 (14:16→20:56)
[2019-08-04] MEDS: ASPIRIN 81 MG TAB.CHEW PO SCH (14:16)
[2019-08-04] MEDS: CALCITRIOL 0.25 MCG CAPSULE PO SCH (14:26)
[2019-08-04 16:43] VITALS: BP_SYST 137
[2019-08-04 20:00] VITALS: BP_SYST 136
[2019-08-04] MEDS: traZODone HCL 50 MG TABLET (DESYREL) PO SCH (20:55)
[2019-08-04] MEDS: amLODIPine BESYLATE 5 MG TABLET PO SCH (20:56)
[2019-08-04] MEDS: FENOFIBRATE NANOCRYSTALLIZED 48 MG TABLET (TRICOR) PO SCH (20:57)
[2019-08-05 00:24] VITALS: BP_SYST 132
[2019-08-05] MEDS: NORMAL SALINE 5 ML DISP.SYRIN IVF SCH ×3 (05:24→21:54)
[2019-08-05] MEDS: LEVOTHYROXINE SODIUM 0.025 MG TABLET PO SCH (06:05)
[2019-08-05] MEDS: INSULIN REGULAR, HUMAN 100 UNITS/ML, 10 ML VIAL (humuLIN R) SUBCUT PRN ×4 (06:10→21:00)
[2019-08-05 06:53] LABS: BASOPHILS # (AUTO) 0.1 K/uL (0.0-0.2); BASOPHILS % (AUTO) 0.7 % (0.0-2.0); EOSINOPHILS # (AUTO) 0.3 K/uL (0.0-0.4); EOSINOPHILS % (AUTO) 3.5 % (0.0-4.0); HEMATOCRIT 26.4 % (36-48); HEMOGLOBIN 8.6 g/dL (12.0-16.0); LYMPHOCYTES # (AUTO) 0.9 K/uL (1.0-5.5); LYMPHOCYTES % (AUTO) 12.8 % (20.5-51.5); MEAN CORPUSCULAR HEMOGLOBIN 30 pg (27-31); MEAN CORPUSCULAR HGB CONC 33 % (32-36); MEAN CORPUSCULAR VOLUME 93 fL (79.0-98.0); MONOCYTES # (AUTO) 0.4 K/uL (0.0-1.0); MONOCYTES % (AUTO) 5.7 % (1.7-9.3); NEUTROPHILS # (AUTO) 5.7 K/uL (1.8-7.7); NEUTROPHILS % (AUTO) 77.3 % (40.0-70.0); PLATELET COUNT (AUTO) 219 K/uL (130-430); RED BLOOD CELL COUNT(AUTO) 2.84 MIL/uL (4.2-6.2); RED CELL DISTRIBUTION WIDTH 16.6 % (9.0-15.0); WHITE BLOOD COUNT (AUTO) 7.3 K/uL (4.8-10.8)
[2019-08-05 07:50] LABS: CALCIUM 9.3 mg/dL (8.4-11.0); CREATININE 6.14 mg/dL (0.55-1.30); PHOSPHORUS 5.9 mg/dL (2.7-4.5); POTASSIUM 3.6 mmol/L (3.5-5.1); TOTAL BILIRUBIN 0.6 mg/dL (0.0-1.0)
[2019-08-05 08:20] VITALS: BP_SYST 132
[2019-08-05] MEDS: CALCITRIOL 0.25 MCG CAPSULE PO SCH (08:37)
[2019-08-05] MEDS: NEPHROVITE, (FOLIC ACID/VITAMIN B COMP W-C 1 TAB) PO SCH (08:37)
[2019-08-05] MEDS: ASPIRIN 81 MG TAB.CHEW PO SCH (08:38)
[2019-08-05] MEDS: METOPROLOL SUCCINATE 50 MG TAB.SR.24H (TOPROL XL) PO SCH ×2 (08:38→20:53)
[2019-08-05] MEDS: NITROGLYCERIN 0.2 MG/HR PATCH.TD24 TD SCH (08:39)
[2019-08-05] MEDS ORDERED: COMMUNICATION ORDER XX ONE (12:00)
[2019-08-05] MEDS ORDERED: EPOETIN ALFA 3,000 UNITS/ML VIAL IVP ONE (12:00)
[2019-08-05 13:22] VITALS: BP_SYST 128
[2019-08-05 17:11] VITALS: BP_SYST 127
[2019-08-05 20:00] VITALS: BP_SYST 134
[2019-08-05] MEDS: amLODIPine BESYLATE 5 MG TABLET PO SCH (20:52)
[2019-08-05] MEDS: traZODone HCL 50 MG TABLET (DESYREL) PO SCH (20:53)
[2019-08-05] MEDS: FENOFIBRATE NANOCRYSTALLIZED 48 MG TABLET (TRICOR) PO SCH (20:53)
[2019-08-05] MEDS ORDERED: BISACODYL 5 MG TABLET.DR (DULCOLAX) PO PRN (22:30)
[2019-08-06 01:20] VITALS: BP_SYST 124
[2019-08-06] MEDS: NORMAL SALINE 5 ML DISP.SYRIN IVF SCH ×3 (06:00→20:26)
[2019-08-06] MEDS: LEVOTHYROXINE SODIUM 0.025 MG TABLET PO SCH (06:01)
[2019-08-06 07:08] LABS: BASOPHILS % (AUTO) 0.6 % (0.0-2.0); EOSINOPHILS # (AUTO) 0.3 K/uL (0.0-0.4); EOSINOPHILS % (AUTO) 3.3 % (0.0-4.0); HEMATOCRIT 27.4 % (36-48); LYMPHOCYTES # (AUTO) 1.3 K/uL (1.0-5.5); LYMPHOCYTES % (AUTO) 15.4 % (20.5-51.5); MEAN CORPUSCULAR HEMOGLOBIN 31 pg (27-31); MEAN CORPUSCULAR HGB CONC 33 % (32-36); MEAN CORPUSCULAR VOLUME 93 fL (79.0-98.0); MONOCYTES # (AUTO) 0.4 K/uL (0.0-1.0); MONOCYTES % (AUTO) 5.3 % (1.7-9.3); NEUTROPHILS # (AUTO) 6.2 K/uL (1.8-7.7); NEUTROPHILS % (AUTO) 75.4 % (40.0-70.0); PLATELET COUNT (AUTO) 233 K/uL (130-430); RED BLOOD CELL COUNT(AUTO) 2.95 MIL/uL (4.2-6.2); RED CELL DISTRIBUTION WIDTH 16.9 % (9.0-15.0); WHITE BLOOD COUNT (AUTO) 8.2 K/uL (4.8-10.8)
[2019-08-06 07:10] LABS: ALBUMIN 3.3 g/dL (3.4-4.8); CALCIUM 9.6 mg/dL (8.4-11.0); CREATININE 7.09 mg/dL (0.55-1.30); PHOSPHORUS 7.5 mg/dL (2.7-4.5); POTASSIUM 4.2 mmol/L (3.5-5.1); TOTAL BILIRUBIN 0.5 mg/dL (0.0-1.0)
[2019-08-06 07:40] VITALS: BP_SYST 118
[2019-08-06] MEDS: NEPHROVITE, (FOLIC ACID/VITAMIN B COMP W-C 1 TAB) PO SCH (09:33)
[2019-08-06] MEDS: NITROGLYCERIN 0.2 MG/HR PATCH.TD24 TD SCH (09:33)
[2019-08-06] MEDS: ASPIRIN 81 MG TAB.CHEW PO SCH (09:33)
[2019-08-06] MEDS: CALCITRIOL 0.25 MCG CAPSULE PO SCH (09:34)
[2019-08-06] MEDS: METOPROLOL SUCCINATE 50 MG TAB.SR.24H (TOPROL XL) PO SCH ×2 (09:34→20:25)
[2019-08-06] MEDS ORDERED: LORazepam 1 MG TABLET PO PRN (10:30)
[2019-08-06] MEDS: INSULIN REGULAR, HUMAN 100 UNITS/ML, 10 ML VIAL (humuLIN R) SUBCUT PRN ×3 (11:35→20:30)
[2019-08-06] MEDS ORDERED: HEPARIN SODIUM, PORCINE 10,000 UNITS/ 10 ML VIAL MC ONE ×2 (12:00→13:00)
[2019-08-06] MEDS ORDERED: EPOETIN ALFA IVP ONE ×2 (12:00)
[2019-08-06 12:49] VITALS: BP_SYST 159
[2019-08-06] MEDS ORDERED: CALC0.258 PO (13:15)
[2019-08-06] MEDS ORDERED: AMLO5TAB4 PO (13:15)
[2019-08-06] MEDS ORDERED: IPRATROPIUM/ALBUTEROL SULFATE 3 ML AMPUL.NEB (DUONEB) INH ONE ×2 (17:00→21:00)
[2019-08-06 17:09] VITALS: BP_SYST 138
[2019-08-06] MEDS ORDERED: SEVELAMER CARBONATE 800 MG TABLET PO ONE (17:30)
[2019-08-06 19:00] VITALS: BP_SYST 142
[2019-08-06 20:00] VITALS: BP_SYST 142
[2019-08-06] MEDS: traZODone HCL 50 MG TABLET (DESYREL) PO SCH (20:23)
[2019-08-06] MEDS: amLODIPine BESYLATE 5 MG TABLET PO SCH (20:24)
[2019-08-06] MEDS: FENOFIBRATE NANOCRYSTALLIZED 48 MG TABLET (TRICOR) PO SCH (20:25)
[2019-08-07 00:04] VITALS: BP_SYST 134
[2019-08-07] MEDS: NORMAL SALINE 5 ML DISP.SYRIN IVF SCH (06:00)
[2019-08-07 06:19] LABS: BASOPHILS % (AUTO) 0.7 % (0.0-2.0); EOSINOPHILS # (AUTO) 0.3 K/uL (0.0-0.4); EOSINOPHILS % (AUTO) 3.8 % (0.0-4.0); HEMATOCRIT 26.7 % (36-48); HEMOGLOBIN 8.8 g/dL (12.0-16.0); LYMPHOCYTES # (AUTO) 1.1 K/uL (1.0-5.5); LYMPHOCYTES % (AUTO) 14.2 % (20.5-51.5); MEAN CORPUSCULAR HEMOGLOBIN 31 pg (27-31); MEAN CORPUSCULAR HGB CONC 33 % (32-36); MEAN CORPUSCULAR VOLUME 93 fL (79.0-98.0); MONOCYTES # (AUTO) 0.5 K/uL (0.0-1.0); MONOCYTES % (AUTO) 6.5 % (1.7-9.3); NEUTROPHILS # (AUTO) 5.6 K/uL (1.8-7.7); NEUTROPHILS % (AUTO) 74.8 % (40.0-70.0); PLATELET COUNT (AUTO) 207 K/uL (130-430); RED BLOOD CELL COUNT(AUTO) 2.87 MIL/uL (4.2-6.2); RED CELL DISTRIBUTION WIDTH 16.3 % (9.0-15.0); WHITE BLOOD COUNT (AUTO) 7.5 K/uL (4.8-10.8)
[2019-08-07 06:21] LABS: CALCIUM 8.9 mg/dL (8.4-11.0); CREATININE 5.64 mg/dL (0.55-1.30); PHOSPHORUS 6.3 mg/dL (2.7-4.5); POTASSIUM 3.4 mmol/L (3.5-5.1)
[2019-08-07] MEDS: LEVOTHYROXINE SODIUM 0.025 MG TABLET PO SCH (06:35)
[2019-08-07 07:58] VITALS: BP_SYST 130
[2019-08-07] MEDS: SEVELAMER CARBONATE 800 MG TABLET PO SCH ×2 (09:24→12:17)
[2019-08-07] MEDS: METOPROLOL SUCCINATE 50 MG TAB.SR.24H (TOPROL XL) PO SCH (09:24)
[2019-08-07] MEDS: NEPHROVITE, (FOLIC ACID/VITAMIN B COMP W-C 1 TAB) PO SCH (09:24)
[2019-08-07] MEDS: NITROGLYCERIN 0.2 MG/HR PATCH.TD24 TD SCH (09:25)
[2019-08-07] MEDS: ASPIRIN 81 MG TAB.CHEW PO SCH (09:26)
[2019-08-07] MEDS: CALCITRIOL 0.25 MCG CAPSULE PO SCH (09:31)
[2019-08-07] MEDS ORDERED: NITR1PAT68 TD (11:28)
[2019-08-07] MEDS ORDERED: SEVE800T8 PO (11:29)
[2019-08-07] MEDS: INSULIN REGULAR, HUMAN 100 UNITS/ML, 10 ML VIAL (humuLIN R) SUBCUT PRN (11:41)
[2019-08-07 11:49] VITALS: BP_SYST 113
[2019-08-07 11:52] VITALS: BP_SYST 132
== END 2019-08-07 13:25 | disposition home or self-care (01) | DRG 291 ==
LOC: SED 19:41 → STU 22:03
PROVIDERS: ADMIT Preventive Medicine Preventive Medicine/Occupational Environmental Medicine; ATTEND Preventive Medicine Preventive Medicine/Occupational Environmental Medicine
PROC: 5A1D70Z Performance of Urinary Filtration, Intermittent, Less than 6 Hours Per Day (ICD-10-PCS; principal; 2019-08-04)
PROC: 5A1D70Z Performance of Urinary Filtration, Intermittent, Less than 6 Hours Per Day (ICD-10-PCS; 2019-08-06)
DX: I13.2 Hypertensive heart and chronic kidney disease with heart failure and with stage 5 chronic kidney disease, or end stage renal disease (principal); N18.6 End stage renal disease; I50.43 Acute on chronic combined systolic (congestive) and diastolic (congestive) heart failure; J18.9 Pneumonia, unspecified organism; L02.416 Cutaneous abscess of left lower limb; L03.116 Cellulitis of left lower limb; N76.4 Abscess of vulva; L02.214 Cutaneous abscess of groin; E78.5 Hyperlipidemia, unspecified; K21.9 Gastro-esophageal reflux disease without esophagitis; E11.22 Type 2 diabetes mellitus with diabetic chronic kidney disease; F41.9 Anxiety disorder, unspecified; F32.9 Major depressive disorder, single episode, unspecified; M10.9 Gout, unspecified; E83.52 Hypercalcemia; J45.909 Unspecified asthma, uncomplicated; D63.1 Anemia in chronic kidney disease; E11.40 Type 2 diabetes mellitus with diabetic neuropathy, unspecified; I25.9 Chronic ischemic heart disease, unspecified; E66.01 Morbid (severe) obesity due to excess calories; I25.10 Atherosclerotic heart disease of native coronary artery without angina pectoris; Z90.710 Acquired absence of both cervix and uterus; Z90.49 Acquired absence of other specified parts of digestive tract; Z99.2 Dependence on renal dialysis; Z91.15 Patient's noncompliance with renal dialysis; Z87.442 Personal history of urinary calculi; Z98.51 Tubal ligation status; Z79.4 Long term (current) use of insulin; Z68.36 Body mass index [BMI] 36.0-36.9, adult; Z88.0 Allergy status to penicillin; Z88.2 Allergy status to sulfonamides; Z88.5 Allergy status to narcotic agent; Z88.8 Allergy status to other drugs, medicaments and biological substances; Z79.82 Long term (current) use of aspirin; Z79.899 Other long term (current) drug therapy
CPT/HCPCS: 36415; 71045; 71046-TC; 71250-TC; 80048; 80053; 82550-TC; 82962; 83036; 83735-TC; 83880; 84100-TC; 84484; 85025; 85379; 85610-TC; 87070-TC; 87075-TC; 87081; 90935; 93005; 94640; 99285; G0378; J0885; J1644; J1815

== ENCOUNTER 2020-05-01 19:22 | Inpatient (IN) | payer OTHER, BC, SELFPAY ==
[~2020-05-01] VITALS: Ht 154.9 cm; Wt 99.8 kg
[2020-05-01 19:22] VITALS: BP_SYST 165
[~2020-05-01 19:22] MED LIST changes: -BENA40TA8 PO; +NITR1PAT84 TD; +SEVE800T8 PO
[2020-05-01] MEDS ORDERED: NITROGLYCERIN 1 INCH (GM) OINT. TP ONE (19:56)
[2020-05-01] MEDS ORDERED: MORPHINE 4 MG/ML INJ. SYRINGE IVP ONE (19:56)
[2020-05-01] MEDS ORDERED: ENOXAPARIN SODIUM 80 MG/0.8 ML SYRINGE SUBCUT ONE (20:00)
[2020-05-01 20:28] LABS: EOSINOPHILS # (AUTO) 0.2 K/uL (0.0-0.4)
[2020-05-01 20:32] LABS: BASOPHILS % (AUTO) 0.5 % (0.0-2.0); EOSINOPHILS % (AUTO) 3.8 % (0.0-4.0); HEMATOCRIT 31.8 % (36-48); HEMOGLOBIN 10.1 g/dL (12.0-16.0); LYMPHOCYTES # (AUTO) 0.7 K/uL (1.0-5.5); LYMPHOCYTES % (AUTO) 14.7 % (20.5-51.5); MEAN CORPUSCULAR HEMOGLOBIN 30 pg (27-31); MEAN CORPUSCULAR HGB CONC 32 % (32-36); MEAN CORPUSCULAR VOLUME 93 fL (79.0-98.0); MONOCYTES # (AUTO) 0.4 K/uL (0.0-1.0); MONOCYTES % (AUTO) 7.2 % (1.7-9.3); NEUTROPHILS # (AUTO) 3.8 K/uL (1.8-7.7); NEUTROPHILS % (AUTO) 73.8 % (40.0-70.0); PLATELET COUNT (AUTO) 168 K/uL (130-430); RED CELL DISTRIBUTION WIDTH 16.5 % (9.0-15.0); WHITE BLOOD COUNT (AUTO) 5.1 K/uL (4.8-10.8)
[2020-05-01 20:36] LABS: CALCIUM 9.2 mg/dL (8.4-11.0); POTASSIUM 4.6 mmol/L (3.5-5.1)
[2020-05-01 20:42] LABS: ALBUMIN 3.3 g/dL (3.4-4.8); TOTAL BILIRUBIN 0.3 mg/dL (0.0-1.0)
[2020-05-01 20:43] LABS: CREATININE 7.85 mg/dL (0.55-1.30)
[2020-05-01] MEDS ORDERED: INSULIN REGULAR, HUMAN 10 UNITS/0.1 ML INJ IVP ONE (20:45)
[2020-05-01] MEDS ORDERED: MORPHINE 4 MG/ML INJ. SYRINGE ONE (22:05)
[2020-05-01 22:09] LABS: PROTHROMBIN TIME 10.7 SECS (9.5-12.5)
[2020-05-02] MEDS ORDERED: INSULIN REGULAR, HUMAN 100 UNITS/ML, 10 ML VIAL (humuLIN R) SUBCUT PRN
[2020-05-02 02:09] VITALS: BP_SYST 150
[2020-05-02] MEDS: NORMAL SALINE 5 ML DISP.SYRIN IVF SCH ×3 (07:07→22:00)
[2020-05-02 07:23] LABS: BASOPHILS % (AUTO) 0.9 % (0.0-2.0); EOSINOPHILS # (AUTO) 0.2 K/uL (0.0-0.4); EOSINOPHILS % (AUTO) 4.7 % (0.0-4.0); HEMATOCRIT 30.6 % (36-48); HEMOGLOBIN 10.1 g/dL (12.0-16.0); LYMPHOCYTES # (AUTO) 1.1 K/uL (1.0-5.5); LYMPHOCYTES % (AUTO) 23.2 % (20.5-51.5); MEAN CORPUSCULAR HEMOGLOBIN 30 pg (27-31); MEAN CORPUSCULAR HGB CONC 33 % (32-36); MEAN CORPUSCULAR VOLUME 92 fL (79.0-98.0); MONOCYTES # (AUTO) 0.4 K/uL (0.0-1.0); NEUTROPHILS # (AUTO) 2.9 K/uL (1.8-7.7); NEUTROPHILS % (AUTO) 62.2 % (40.0-70.0); PLATELET COUNT (AUTO) 152 K/uL (130-430); RED BLOOD CELL COUNT(AUTO) 3.33 MIL/uL (4.2-6.2); RED CELL DISTRIBUTION WIDTH 16.3 % (9.0-15.0); WHITE BLOOD COUNT (AUTO) 4.7 K/uL (4.8-10.8)
[2020-05-02 08:00] VITALS: BP_SYST 169
[2020-05-02 08:05] LABS: ALBUMIN 3.1 g/dL (3.4-4.8); POTASSIUM 4.8 mmol/L (3.5-5.1); TOTAL BILIRUBIN 0.4 mg/dL (0.0-1.0)
[2020-05-02 08:06] LABS: CREATININE 8.38 mg/dL (0.55-1.30)
[2020-05-02] MEDS ORDERED: LORATADINE 10 MG TABLET PO PRN (10:30)
[2020-05-02] MEDS ORDERED: COMMUNICATION ORDER XX ONE (12:00)
[2020-05-02] MEDS: SEVELAMER CARBONATE 800 MG TABLET PO SCH ×2 (13:20→17:39)
[2020-05-02 13:25] VITALS: BP_SYST 156
[2020-05-02 14:20] VITALS: BP_SYST 152
[2020-05-02] MEDS ORDERED: DIPHENHYDRAMINE HCL 25 MG CAPSULE PO PRN (14:30)
[2020-05-02] MEDS ORDERED: IBUPROFEN 400 MG TABLET PO PRN (14:30)
[2020-05-02] MEDS ORDERED: NITROGLYCERIN 0.2 MG/HR PATCH.TD24 TD ONE (14:30)
[2020-05-02 16:06] VITALS: BP_SYST 153
[2020-05-02] MEDS ORDERED: DIPHENHYDRAMINE HCL 12.5 MG/5 ML UDC PO PRN (17:00)
[2020-05-02] MEDS: INSULIN NPH/REGULAR 70-30, 100 UNITS/ML, 10 ML VIAL SUBCUT SCH (17:39)
[2020-05-02 20:00] VITALS: BP_SYST 159
[2020-05-02] MEDS: METOPROLOL SUCCINATE 50 MG TAB.SR.24H (TOPROL XL) PO SCH (21:00)
[2020-05-02] MEDS: amLODIPine BESYLATE 5 MG TABLET PO SCH (21:00)
[2020-05-02] MEDS: traZODone HCL 50 MG TABLET (DESYREL) PO SCH (21:00)
[2020-05-03] VITALS: BP_SYST 150
[2020-05-03] MEDS: NORMAL SALINE 5 ML DISP.SYRIN IVF SCH ×3 (06:00→22:00)
[2020-05-03 08:10] VITALS: BP_SYST 152
[2020-05-03 08:29] LABS: BASOPHILS % (AUTO) 1.1 % (0.0-2.0); EOSINOPHILS # (AUTO) 0.1 K/uL (0.0-0.4); EOSINOPHILS % (AUTO) 3.2 % (0.0-4.0); HEMATOCRIT 31.5 % (36-48); HEMOGLOBIN 10.4 g/dL (12.0-16.0); LYMPHOCYTES # (AUTO) 0.6 K/uL (1.0-5.5); LYMPHOCYTES % (AUTO) 14.5 % (20.5-51.5); MEAN CORPUSCULAR HEMOGLOBIN 30 pg (27-31); MEAN CORPUSCULAR HGB CONC 33 % (32-36); MEAN CORPUSCULAR VOLUME 92 fL (79.0-98.0); MONOCYTES # (AUTO) 0.5 K/uL (0.0-1.0); NEUTROPHILS # (AUTO) 2.7 K/uL (1.8-7.7); NEUTROPHILS % (AUTO) 68.2 % (40.0-70.0); PLATELET COUNT (AUTO) 136 K/uL (130-430); RED BLOOD CELL COUNT(AUTO) 3.44 MIL/uL (4.2-6.2); RED CELL DISTRIBUTION WIDTH 16.3 % (9.0-15.0)
[2020-05-03 08:45] LABS: ALBUMIN 3.1 g/dL (3.4-4.8); POTASSIUM 4.6 mmol/L (3.5-5.1); TOTAL BILIRUBIN 0.4 mg/dL (0.0-1.0)
[2020-05-03 08:48] LABS: CREATININE 10.08 mg/dL (0.55-1.30)
[2020-05-03] MEDS: ASPIRIN 81 MG TAB.CHEW PO SCH (09:18)
[2020-05-03] MEDS: calcitrioL 0.25 MCG CAPSULE PO SCH (09:18)
[2020-05-03] MEDS: SEVELAMER CARBONATE 800 MG TABLET PO SCH ×3 (09:18→18:23)
[2020-05-03] MEDS: LEVOTHYROXINE SODIUM 0.025 MG TABLET PO SCH (09:19)
[2020-05-03] MEDS: METOPROLOL SUCCINATE 50 MG TAB.SR.24H (TOPROL XL) PO SCH ×2 (09:19→21:00)
[2020-05-03] MEDS: CHOLECALCIFEROL (VITAMIN D3) 2,000 UNIT TABLET PO SCH (09:19)
[2020-05-03] MEDS: NITROGLYCERIN 0.2 MG/HR PATCH.TD24 TD SCH (09:20)
[2020-05-03] MEDS: ASCORBIC ACID 500 MG TABLET PO SCH (09:23)
[2020-05-03] MEDS: INSULIN NPH/REGULAR 70-30, 100 UNITS/ML, 10 ML VIAL SUBCUT SCH ×2 (09:39→18:23)
[2020-05-03] MEDS ORDERED: AZITHROMYCIN 500 MG in NS 250 ML IV SCH (14:00)
[2020-05-03] MEDS ORDERED: ENOXAPARIN SODIUM 40 MG/0.4 ML SYRINGE SUBCUT ONE (14:15)
[2020-05-03] MEDS ORDERED: EPOETIN ALFA 3,000 UNITS/ML VIAL SUBCUT ONE (15:00)
[2020-05-03] MEDS ORDERED: ACETAMINOPHEN 500 MG TABLET PO PRN (15:15)
[2020-05-03 20:00] VITALS: BP_SYST 139
[2020-05-03] MEDS: amLODIPine BESYLATE 5 MG TABLET PO SCH (21:00)
[2020-05-03] MEDS: traZODone HCL 50 MG TABLET (DESYREL) PO SCH (21:00)
[2020-05-04] VITALS: BP_SYST 131
[2020-05-04] MEDS: NORMAL SALINE 5 ML DISP.SYRIN IVF SCH (06:51)
[2020-05-04 07:45] VITALS: BP_SYST 133
[2020-05-04] MEDS ORDERED: ENOXAPARIN SODIUM 40 MG/0.4 ML SYRINGE SUBCUT SCH (09:00)
[2020-05-04] MEDS ORDERED: ASCO500T20 PO (10:05)
[2020-05-04] MEDS: ASPIRIN 81 MG TAB.CHEW PO SCH (10:42)
[2020-05-04] MEDS: ASCORBIC ACID 500 MG TABLET PO SCH (10:42)
[2020-05-04] MEDS: calcitrioL 0.25 MCG CAPSULE PO SCH (10:42)
[2020-05-04] MEDS: CHOLECALCIFEROL (VITAMIN D3) 2,000 UNIT TABLET PO SCH (10:42)
[2020-05-04] MEDS: LEVOTHYROXINE SODIUM 0.025 MG TABLET PO SCH (10:43)
[2020-05-04] MEDS: METOPROLOL SUCCINATE 50 MG TAB.SR.24H (TOPROL XL) PO SCH (10:43)
[2020-05-04] MEDS: NITROGLYCERIN 0.2 MG/HR PATCH.TD24 TD SCH (10:44)
[2020-05-04] MEDS: INSULIN NPH/REGULAR 70-30, 100 UNITS/ML, 10 ML VIAL SUBCUT SCH (10:57)
[2020-05-04] MEDS: SEVELAMER CARBONATE 800 MG TABLET PO SCH ×2 (10:57→13:24)
[2020-05-04 12:00] VITALS: BP_SYST 136
[2020-05-04 13:57] VITALS: BP_SYST 136
== END 2020-05-04 14:15 | disposition home or self-care (01) | DRG 313 ==
LOC: SED 19:22 → STU 23:51
PROC: 5A1D70Z Performance of Urinary Filtration, Intermittent, Less than 6 Hours Per Day (ICD-10-PCS; principal; 2020-05-03)
DX: R07.89 Other chest pain (principal); N18.6 End stage renal disease; U07.1 COVID-19; I13.0 Hypertensive heart and chronic kidney disease with heart failure and stage 1 through stage 4 chronic kidney disease, or unspecified chronic kidney disease; I20.0 Unstable angina; Z68.41 Body mass index [BMI] 40.0-44.9, adult; E11.22 Type 2 diabetes mellitus with diabetic chronic kidney disease; F32.9 Major depressive disorder, single episode, unspecified; F41.9 Anxiety disorder, unspecified; E03.9 Hypothyroidism, unspecified; E11.65 Type 2 diabetes mellitus with hyperglycemia; D64.9 Anemia, unspecified; E66.01 Morbid (severe) obesity due to excess calories; I50.9 Heart failure, unspecified; Z88.0 Allergy status to penicillin; Z88.2 Allergy status to sulfonamides; Z88.5 Allergy status to narcotic agent; Z88.8 Allergy status to other drugs, medicaments and biological substances; Z79.899 Other long term (current) drug therapy; Z79.4 Long term (current) use of insulin
CPT/HCPCS: 36415; 71045; 80053; 82962; 83880; 84484; 85025; 85379; 85610-TC; 86140; 87081; 93005; 96372; 96374; 96375; 99291; G0378; J0456; J0885; J1650; J1815; J2270; J7050; Q0163

== ENCOUNTER 2020-05-13 14:46 | Emergency (ER) | payer OTHER, BC, SELFPAY ==
[~2020-05-13] VITALS: Ht 154.9 cm; Wt 95.3 kg
[2020-05-13 14:46] VITALS: BP_SYST 136
[~2020-05-13 14:46] MED LIST changes: +ASCO500T20 PO; -[UNRECOGNIZED DRUG - OTHER] PO
--- NOTE | 2020-05-13 14:50 | NUR ---
TRIAGED IN TRIAGE TENT, AWAITING ER BED AVAILABILITY
--- NOTE | 2020-05-13 15:30 | NUR ---
DR SANTIAGO EVALUATING PT IN TENT
--- NOTE | 2020-05-13 16:10 | NUR ---
PT WAITING IN TENT, SPEAKING WITH FAMILY
[2020-05-13 17:06] LABS: BASOPHILS % (AUTO) 0.6 % (0.0-2.0); EOSINOPHILS # (AUTO) 0.2 K/uL (0.0-0.4); EOSINOPHILS % (AUTO) 3.5 % (0.0-4.0); HEMATOCRIT 30.5 % (36-48); HEMOGLOBIN 10.1 g/dL (12.0-16.0); LYMPHOCYTES # (AUTO) 0.7 K/uL (1.0-5.5); MEAN CORPUSCULAR HEMOGLOBIN 30 pg (27-31); MEAN CORPUSCULAR HGB CONC 33 % (32-36); MEAN CORPUSCULAR VOLUME 89 fL (79.0-98.0); MONOCYTES # (AUTO) 0.4 K/uL (0.0-1.0); MONOCYTES % (AUTO) 7.9 % (1.7-9.3); NEUTROPHILS # (AUTO) 3.3 K/uL (1.8-7.7); PLATELET COUNT (AUTO) 209 K/uL (130-430); RED BLOOD CELL COUNT(AUTO) 3.41 MIL/uL (4.2-6.2); RED CELL DISTRIBUTION WIDTH 15.1 % (9.0-15.0); WHITE BLOOD COUNT (AUTO) 4.6 K/uL (4.8-10.8)
--- NOTE | 2020-05-13 17:20 | NUR ---
PT AWAITING TEST RESULTS
[2020-05-13 17:33] LABS: ALBUMIN 3.1 g/dL (3.4-4.8); TOTAL BILIRUBIN 0.5 mg/dL (0.0-1.0)
[2020-05-13 17:43] LABS: CREATININE 12.13 mg/dL (0.55-1.30)
--- NOTE | 2020-05-13 17:50 | NUR ---
DR SANTIAGO OUT SPEAKING WITH PT ABOUT RESULTS.
[2020-05-13] MEDS ORDERED: HYDR200T80 PO ×2 (17:59)
[2020-05-13] MEDS ORDERED: DEXA6TAB5 PO (17:59)
--- NOTE | 2020-05-13 18:08 | NUR ---
Patient given written and verbal discharge instructions and verbalizes understanding. ER MD discussed with patient the results and treatment provided. Patient in stable condition. ID arm band removed. Rx of DECADRON, PLAQUENIL given. Patient educated on pain management and to follow up with PMD. Pain Scale 0/10. Opportunity for questions provided and answered. Medication side effect fact sheet provided.
== END 2020-05-13 18:08 | disposition home or self-care (01) ==
LOC: SED 14:46
DX: R19.7 Diarrhea, unspecified (principal); I10 Essential (primary) hypertension; E11.9 Type 2 diabetes mellitus without complications; J45.909 Unspecified asthma, uncomplicated; N28.9 Disorder of kidney and ureter, unspecified; M10.9 Gout, unspecified; Z90.49 Acquired absence of other specified parts of digestive tract; Z90.710 Acquired absence of both cervix and uterus; Z79.899 Other long term (current) drug therapy; Z88.0 Allergy status to penicillin; Z88.2 Allergy status to sulfonamides; Z88.6 Allergy status to analgesic agent
CPT/HCPCS: 36415; 80053; 85025; 99283

== ENCOUNTER 2020-05-21 17:52 | Inpatient (IN) | payer OTHER, BC, SELFPAY ==
[~2020-05-21] VITALS: Ht 154.9 cm; Wt 97.2 kg
[~2020-05-21 17:52] MED LIST changes: +DEXA6TAB5 PO; +HYDR200T80 PO
[2020-05-21 18:09] VITALS: BP_SYST 166
[2020-05-21] MEDS ORDERED: ASPIRIN 81 MG TAB.CHEW PO ONE (19:00)
[2020-05-21 19:28] LABS: BASOPHILS # (AUTO) 0.1 K/uL (0.0-0.2); BASOPHILS % (AUTO) 0.9 % (0.0-2.0); EOSINOPHILS # (AUTO) 0.2 K/uL (0.0-0.4); EOSINOPHILS % (AUTO) 2.6 % (0.0-4.0); HEMATOCRIT 28.9 % (36-48); HEMOGLOBIN 9.5 g/dL (12.0-16.0); LYMPHOCYTES % (AUTO) 13.9 % (20.5-51.5); MEAN CORPUSCULAR HEMOGLOBIN 29 pg (27-31); MEAN CORPUSCULAR HGB CONC 33 % (32-36); MEAN CORPUSCULAR VOLUME 89 fL (79.0-98.0); MONOCYTES # (AUTO) 0.4 K/uL (0.0-1.0); MONOCYTES % (AUTO) 5.2 % (1.7-9.3); NEUTROPHILS # (AUTO) 5.7 K/uL (1.8-7.7); NEUTROPHILS % (AUTO) 77.4 % (40.0-70.0); PLATELET COUNT (AUTO) 207 K/uL (130-430); RED BLOOD CELL COUNT(AUTO) 3.23 MIL/uL (4.2-6.2); RED CELL DISTRIBUTION WIDTH 14.6 % (9.0-15.0); WHITE BLOOD COUNT (AUTO) 7.3 K/uL (4.8-10.8)
[2020-05-21 19:50] LABS: ALBUMIN 3.2 g/dL (3.4-4.8); CALCIUM 10.3 mg/dL (8.4-11.0); POTASSIUM 4.4 mmol/L (3.5-5.1); TOTAL BILIRUBIN 0.3 mg/dL (0.0-1.0)
[2020-05-21 19:54] LABS: CREATININE 8.91 mg/dL (0.55-1.30)
[2020-05-21] MEDS ORDERED: CLINDAMYCIN 900 mg/50mL D5W 50 ML IV ONE (20:30)
[2020-05-21] MEDS ORDERED: KETOROLAC TROMETHAMINE 30 MG VIAL IVP ONE (20:30)
[2020-05-21] MEDS ORDERED: fentaNYL CITRATE/PF 100 MCG/2 ML AMP IVP ONE (21:30)
[2020-05-21] MEDS ORDERED: fentaNYL CITRATE/PF 100 MCG/2 ML AMP IVP PRN (21:45)
[2020-05-22 00:52] VITALS: BP_SYST 164
[2020-05-22] MEDS ORDERED: LORATADINE 10 MG TABLET PO PRN (07:45)
[2020-05-22] MEDS ORDERED: SEVELAMER CARBONATE 800 MG TABLET PO ONE (08:30)
[2020-05-22 09:00] VITALS: BP_SYST 160
[2020-05-22] MEDS ORDERED: NITROGLYCERIN 0.2 MG/HR PATCH.TD24 TD ONE (09:00)
[2020-05-22] MEDS ORDERED: calcitrioL 0.25 MCG CAPSULE PO ONE (09:00)
[2020-05-22] MEDS ORDERED: LEVOTHYROXINE SODIUM 0.025 MG TABLET PO ONE (09:00)
[2020-05-22] MEDS ORDERED: ASCORBIC ACID 500 MG TABLET PO ONE (09:00)
[2020-05-22] MEDS ORDERED: traZODone HCL 50 MG TABLET (DESYREL) PO PRN (09:45)
[2020-05-22] MEDS: ASPIRIN 81 MG TAB.CHEW PO ONE ×2 (09:48→09:58)
[2020-05-22] MEDS: HYDROXYCHLOROQUINE SULFATE 200 MG TABLET PO SCH (09:50)
[2020-05-22] MEDS: METOPROLOL TARTRATE 50 MG TABLET PO SCH ×2 (09:51→22:02)
[2020-05-22] MEDS ORDERED: DIPHENHYDRAMINE HCL 12.5 MG/5 ML UDC PO PRN (11:30)
[2020-05-22] MEDS ORDERED: DIPHENHYDRAMINE HCL 50 MG CAPSULE PO PRN (12:15)
[2020-05-22] MEDS: SEVELAMER CARBONATE 800 MG TABLET PO SCH ×3 (12:36→18:32)
[2020-05-22 12:54] VITALS: BP_SYST 103
[2020-05-22] MEDS ORDERED: EPOETIN ALFA 4,000 UNITS/ML VIAL SUBCUT ONE (15:15)
[2020-05-22] MEDS ORDERED: EPOETIN ALFA 4,000 UNITS/ML VIAL IVP ONE (16:15)
[2020-05-22 16:50] VITALS: BP_SYST 130
[2020-05-22] MEDS ORDERED: INSULIN NPH 100 UNITS/ML 10 ML VIAL SUBCUT SCH (17:00)
[2020-05-22 20:00] VITALS: BP_SYST 165
[2020-05-22] MEDS ORDERED: amLODIPine BESYLATE 5 MG TABLET PO SCH (21:00)
[2020-05-22] MEDS: INSULIN LISPRO SLIDING SCALE 100 UNITS/ML VIAL (humaLOG) SUBCUT PRN (22:05)
[2020-05-22] MEDS ORDERED: IBUPROFEN 200 MG TABLET PO PRN (22:45)
[2020-05-22] MEDS ORDERED: IBUPROFEN 400 MG TABLET ONE ×2 (22:57→23:21)
[2020-05-23] VITALS: BP_SYST 129
[2020-05-23] MEDS: INSULIN LISPRO SLIDING SCALE 100 UNITS/ML VIAL (humaLOG) SUBCUT PRN (06:38)
[2020-05-23] MEDS ORDERED: INSULIN NPH 100 UNITS/ML 10 ML VIAL SUBCUT SCH (07:00)
[2020-05-23] MEDS ORDERED: LEVOTHYROXINE SODIUM 0.025 MG TABLET PO SCH (07:00)
[2020-05-23] MEDS ORDERED: INSULIN NPH/REGULAR 70-30, 100 UNITS/ML, 10 ML VIAL SUBCUT SCH ×2 (07:00→17:00)
[2020-05-23 09:00] VITALS: BP_SYST 121
[2020-05-23] MEDS ORDERED: HYDROXYCHLOROQUINE SULFATE 200 MG TABLET PO SCH (09:00)
[2020-05-23] MEDS ORDERED: ASPIRIN 81 MG TAB.CHEW PO SCH (09:00)
[2020-05-23] MEDS ORDERED: NITROGLYCERIN 0.2 MG/HR PATCH.TD24 TD SCH (09:00)
[2020-05-23] MEDS ORDERED: ASCORBIC ACID 500 MG TABLET PO SCH (09:00)
[2020-05-23] MEDS ORDERED: calcitrioL 0.25 MCG CAPSULE PO SCH (09:00)
[2020-05-23] MEDS: SEVELAMER CARBONATE 800 MG TABLET PO SCH ×2 (09:23→12:30)
[2020-05-23] MEDS: METOPROLOL TARTRATE 50 MG TABLET PO SCH (09:24)
[2020-05-23] MEDS: HYDROXYCHLOROQUINE SULFATE 200 MG TABLET PO SCH (09:24)
[2020-05-23 11:06] VITALS: BP_SYST 121
[2020-05-25] MEDS ORDERED: ONDANSETRON HCL 4 MG/2 ML VIAL ONE (22:50)
== END 2020-05-23 13:35 | disposition home health service (06) | DRG 640 ==
LOC: SED 17:52 → STU 21:40 → OBSVTOIN 21:40 → STU 05-22 00:17
PROVIDERS: ADMIT Internal Medicine Cardiovascular Disease; ATTEND Internal Medicine Cardiovascular Disease
PROC: 5A1D70Z Performance of Urinary Filtration, Intermittent, Less than 6 Hours Per Day (ICD-10-PCS; principal; 2020-05-21)
PROC: 5A1D70Z Performance of Urinary Filtration, Intermittent, Less than 6 Hours Per Day (ICD-10-PCS; 2020-05-22)
DX: E87.70 Fluid overload, unspecified (principal); N18.6 End stage renal disease; I12.0 Hypertensive chronic kidney disease with stage 5 chronic kidney disease or end stage renal disease; Z68.41 Body mass index [BMI] 40.0-44.9, adult; I20.9 Angina pectoris, unspecified; R07.89 Other chest pain; D64.9 Anemia, unspecified; E11.22 Type 2 diabetes mellitus with diabetic chronic kidney disease; E66.9 Obesity, unspecified; F32.9 Major depressive disorder, single episode, unspecified; F41.9 Anxiety disorder, unspecified; E11.51 Type 2 diabetes mellitus with diabetic peripheral angiopathy without gangrene; J45.909 Unspecified asthma, uncomplicated; Z79.4 Long term (current) use of insulin; Z99.2 Dependence on renal dialysis; Z88.0 Allergy status to penicillin; Z88.2 Allergy status to sulfonamides; Z88.8 Allergy status to other drugs, medicaments and biological substances; Z91.013 Allergy to seafood; Z79.82 Long term (current) use of aspirin; Z79.899 Other long term (current) drug therapy; Z90.49 Acquired absence of other specified parts of digestive tract; Z90.710 Acquired absence of both cervix and uterus; I50.9 Heart failure, unspecified
CPT/HCPCS: 36415; 71045; 80053; 80061; 82550-TC; 82962; 83880; 84484; 85025; 87040-TC; 87081; 90935; 93005; 96365; 96375; G0378; J0885; J1815; J1885; J2405; J3010; J3490; J7030; Q0163

== ENCOUNTER 2020-06-09 15:23 | Emergency (ER) | payer OTHER, BC, SELFPAY ==
[~2020-06-09] VITALS: Ht 154.9 cm; Wt 97.1 kg
[2020-06-09 15:23] VITALS: BP_SYST 133
[2020-06-09] MEDS ORDERED: HYDROcodone/ACETAMIN 5-325 MG TAB (NORCO/ VICODIN) ONE (16:53)
[2020-06-09] MEDS ORDERED: ASPIRIN 325 MG TABLET PO ONE (17:00)
[2020-06-09] MEDS ORDERED: HYDROcodone/ACETAMIN 5-325 MG TAB (NORCO/ VICODIN) PO ONE (17:00)
[2020-06-09 17:01] LABS: BASOPHILS % (AUTO) 0.7 % (0.0-2.0); EOSINOPHILS # (AUTO) 0.2 K/uL (0.0-0.4); EOSINOPHILS % (AUTO) 3.8 % (0.0-4.0); HEMATOCRIT 27.4 % (36-48); HEMOGLOBIN 9.1 g/dL (12.0-16.0); LYMPHOCYTES # (AUTO) 0.5 K/uL (1.0-5.5); LYMPHOCYTES % (AUTO) 9.3 % (20.5-51.5); MEAN CORPUSCULAR HEMOGLOBIN 31 pg (27-31); MEAN CORPUSCULAR HGB CONC 33 % (32-36); MEAN CORPUSCULAR VOLUME 93 fL (79.0-98.0); MONOCYTES # (AUTO) 0.4 K/uL (0.0-1.0); NEUTROPHILS # (AUTO) 4.5 K/uL (1.8-7.7); NEUTROPHILS % (AUTO) 79.2 % (40.0-70.0); PLATELET COUNT (AUTO) 162 K/uL (130-430); RED BLOOD CELL COUNT(AUTO) 2.95 MIL/uL (4.2-6.2); RED CELL DISTRIBUTION WIDTH 19.1 % (9.0-15.0); WHITE BLOOD COUNT (AUTO) 5.6 K/uL (4.8-10.8)
[2020-06-09 17:28] LABS: ALBUMIN 3.4 g/dL (3.4-4.8); CALCIUM 9.6 mg/dL (8.4-11.0); CREATININE 6.2 mg/dL (0.55-1.30); POTASSIUM 4.3 mmol/L (3.5-5.1); TOTAL BILIRUBIN 0.6 mg/dL (0.0-1.0)
[2020-06-09 17:50] LABS: PROTHROMBIN TIME 10.5 SECS (9.5-12.5)
[2020-06-09] MEDS ORDERED: HYDR-3110 PO (17:52)
[2020-06-09 18:28] VITALS: BP_SYST 148
== END 2020-06-09 18:25 | disposition home or self-care (01) ==
LOC: SED 15:23
DX: J98.01 Acute bronchospasm (principal); I10 Essential (primary) hypertension; E11.29 Type 2 diabetes mellitus with other diabetic kidney complication; N28.9 Disorder of kidney and ureter, unspecified; E07.9 Disorder of thyroid, unspecified; M10.9 Gout, unspecified; Z90.49 Acquired absence of other specified parts of digestive tract; Z90.710 Acquired absence of both cervix and uterus; Z79.899 Other long term (current) drug therapy; Z79.82 Long term (current) use of aspirin; Z88.0 Allergy status to penicillin; Z88.2 Allergy status to sulfonamides; Z91.013 Allergy to seafood; Z88.6 Allergy status to analgesic agent
CPT/HCPCS: 36415; 71045; 80053; 83880; 84484; 85025; 85610-TC; 85730-TC; 93005; 99285

== ENCOUNTER 2020-08-09 13:45 | Inpatient (IN) | payer OTHER, BC ==
[~2020-08-09] VITALS: Ht 154.9 cm; Wt 104.3 kg
[~2020-08-09 13:45] MED LIST changes: -DEXA6TAB5 PO; +HYDR-4280 PO; -HYDR200T80 PO
[2020-08-09 13:49] VITALS: BP_SYST 172
[2020-08-09] MEDS ORDERED: LevALBUTEROL HCL 1.25 MG/0.5 ML *CONC.* VIAL.NEB (XOPENEX CONC.) INH ONE (15:30)
[2020-08-09 16:07] LABS: BASOPHILS % (AUTO) 0.6 % (0.0-2.0); EOSINOPHILS # (AUTO) 0.2 K/uL (0.0-0.4); EOSINOPHILS % (AUTO) 2.7 % (0.0-4.0); HEMATOCRIT 29.4 % (36-48); HEMOGLOBIN 9.6 g/dL (12.0-16.0); LYMPHOCYTES # (AUTO) 0.7 K/uL (1.0-5.5); LYMPHOCYTES % (AUTO) 10.5 % (20.5-51.5); MEAN CORPUSCULAR HEMOGLOBIN 30 pg (27-31); MEAN CORPUSCULAR HGB CONC 33 % (32-36); MEAN CORPUSCULAR VOLUME 93 fL (79.0-98.0); MONOCYTES # (AUTO) 0.4 K/uL (0.0-1.0); MONOCYTES % (AUTO) 5.6 % (1.7-9.3); NEUTROPHILS # (AUTO) 5.4 K/uL (1.8-7.7); NEUTROPHILS % (AUTO) 80.6 % (40.0-70.0); PLATELET COUNT (AUTO) 181 K/uL (130-430); RED BLOOD CELL COUNT(AUTO) 3.16 MIL/uL (4.2-6.2); RED CELL DISTRIBUTION WIDTH 15.2 % (9.0-15.0); WHITE BLOOD COUNT (AUTO) 6.7 K/uL (4.8-10.8)
[2020-08-09 16:18] LABS: POTASSIUM 3.9 mmol/L (3.5-5.1)
[2020-08-09 16:19] LABS: CALCIUM 9.5 mg/dL (8.4-11.0); CREATININE 4.56 mg/dL (0.55-1.30)
[2020-08-09 16:20] LABS: INR 1.1 (0.8-1.2); PROTHROMBIN TIME 10.8 SECS (9.5-12.5)
[2020-08-09 16:23] LABS: TOTAL BILIRUBIN 0.5 mg/dL (0.0-1.0)
[2020-08-09 16:24] LABS: ALBUMIN 3.1 g/dL (3.4-4.8)
[2020-08-09] MEDS ORDERED: LEVOFLOXACIN IN DEXTROSE 5 % 100 ML IV ONE (17:00)
[2020-08-09] MEDS ORDERED: VANCOMYCIN HCL 1,000 MG in NS 250 ML IV ONE (17:00)
[2020-08-09] MEDS ORDERED: VANCOMYCIN HCL 1000 MG/VIAL IV ONE (17:11)
[2020-08-09] MEDS ORDERED: AMITRIPTYLINE HCL 10 MG TABLET (ELAVIL) PO PRN (18:00)
[2020-08-09] MEDS ORDERED: LORATADINE 10 MG TABLET PO PRN (18:00)
[2020-08-09] MEDS ORDERED: NITROGLYCERIN 0.4 MG/HR PATCH.TD24 TD SCH (18:15)
[2020-08-09] MEDS ORDERED: NALOXONE HCL 0.4 MG/ML AMP (NARCAN) IVP PRN (18:15)
[2020-08-09] MEDS ORDERED: MORPHINE 2 MG/ML INJ. SYRINGE IVP PRN ×2 (18:15→18:30)
[2020-08-09] MEDS ORDERED: traZODone HCL 50 MG TABLET (DESYREL) PO PRN (18:30)
[2020-08-09] MEDS: INSULIN NPH/REGULAR 70-30, 100 UNITS/ML, 10 ML VIAL SUBCUT SCH (18:39)
[2020-08-09 19:03] VITALS: BP_SYST 154
[2020-08-09 19:48] VITALS: BP_SYST 154
[2020-08-09 20:00] VITALS: BP_SYST 154
[2020-08-09] MEDS: NITROGLYCERIN 0.4 MG/HR PATCH.TD24 TD SCH (21:00)
[2020-08-09] MEDS: traZODone HCL 50 MG TABLET (DESYREL) PO SCH (21:57)
[2020-08-09] MEDS: amLODIPine BESYLATE 5 MG TABLET PO SCH (21:58)
[2020-08-09] MEDS: SEVELAMER CARBONATE 800 MG TABLET PO SCH (21:58)
[2020-08-09] MEDS: METOPROLOL SUCCINATE 50 MG TAB.SR.24H (TOPROL XL) PO SCH (21:59)
[2020-08-10] VITALS: BP_SYST 146
[2020-08-10] MEDS: LEVOTHYROXINE SODIUM 0.025 MG TABLET PO SCH (06:36)
[2020-08-10] MEDS: ACETAMINOPHEN 325 MG TABLET PO PRN (06:36)
[2020-08-10 07:25] LABS: BASOPHILS % (AUTO) 0.7 % (0.0-2.0); EOSINOPHILS # (AUTO) 0.2 K/uL (0.0-0.4); EOSINOPHILS % (AUTO) 3.5 % (0.0-4.0); LYMPHOCYTES # (AUTO) 0.9 K/uL (1.0-5.5); LYMPHOCYTES % (AUTO) 14.1 % (20.5-51.5); MEAN CORPUSCULAR HEMOGLOBIN 30 pg (27-31); MEAN CORPUSCULAR HGB CONC 32 % (32-36); MEAN CORPUSCULAR VOLUME 94 fL (79.0-98.0); MONOCYTES # (AUTO) 0.5 K/uL (0.0-1.0); MONOCYTES % (AUTO) 8.1 % (1.7-9.3); NEUTROPHILS % (AUTO) 73.6 % (40.0-70.0); PLATELET COUNT (AUTO) 166 K/uL (130-430); RED BLOOD CELL COUNT(AUTO) 2.99 MIL/uL (4.2-6.2); RED CELL DISTRIBUTION WIDTH 15.5 % (9.0-15.0); WHITE BLOOD COUNT (AUTO) 6.7 K/uL (4.8-10.8)
[2020-08-10 07:34] LABS: CALCIUM 9.3 mg/dL (8.4-11.0); CREATININE 5.34 mg/dL (0.55-1.30); POTASSIUM 4.5 mmol/L (3.5-5.1); THYROID STIMULATING HORMONE 2.78 uIu/mL (0.36-3.74); TOTAL BILIRUBIN 0.5 mg/dL (0.0-1.0)
[2020-08-10 08:00] VITALS: BP_SYST 137
[2020-08-10] MEDS: NEPHROVITE, (FOLIC ACID/VITAMIN B COMP W-C 1 TAB) PO SCH (08:20)
[2020-08-10] MEDS: calcitrioL 0.25 MCG CAPSULE PO SCH (08:20)
[2020-08-10] MEDS: METOPROLOL SUCCINATE 50 MG TAB.SR.24H (TOPROL XL) PO SCH ×2 (08:20→20:19)
[2020-08-10] MEDS: ASPIRIN 81 MG TAB.CHEW PO SCH (08:20)
[2020-08-10] MEDS: SEVELAMER CARBONATE 800 MG TABLET PO SCH ×3 (08:21→18:27)
[2020-08-10] MEDS: INSULIN NPH/REGULAR 70-30, 100 UNITS/ML, 10 ML VIAL SUBCUT SCH ×2 (08:24→17:47)
[2020-08-10] MEDS ORDERED: DOXYCYCLINE HYCLATE 100 MG CAPSULE PO ONE (10:30)
[2020-08-10] MEDS: INSULIN REGULAR, HUMAN 100 UNITS/ML, 10 ML VIAL (humuLIN R) SUBCUT PRN (11:45)
[2020-08-10 12:00] VITALS: BP_SYST 115
[2020-08-10] MEDS ORDERED: DOCUSATE SODIUM 100 MG CAPSULE PO PRN (14:30)
[2020-08-10] MEDS ORDERED: MILK OF MAGNESIA 30 ML UDC PO ONE (14:30)
[2020-08-10 16:00] VITALS: BP_SYST 129
[2020-08-10] MEDS: NITROGLYCERIN 0.4 MG/HR PATCH.TD24 TD SCH (18:15)
[2020-08-10 19:50] VITALS: BP_SYST 143
[2020-08-10] MEDS: amLODIPine BESYLATE 5 MG TABLET PO SCH (20:19)
[2020-08-10] MEDS: traZODone HCL 50 MG TABLET (DESYREL) PO SCH (20:20)
[2020-08-10] MEDS: DOXYCYCLINE HYCLATE 100 MG CAPSULE PO SCH (20:20)
[2020-08-11] VITALS: BP_SYST 146
[2020-08-11] MEDS: LEVOTHYROXINE SODIUM 0.025 MG TABLET PO SCH (06:26)
[2020-08-11 08:00] VITALS: BP_SYST 131
[2020-08-11] MEDS: SEVELAMER CARBONATE 800 MG TABLET PO SCH ×3 (09:11→18:00)
[2020-08-11] MEDS: NEPHROVITE, (FOLIC ACID/VITAMIN B COMP W-C 1 TAB) PO SCH (09:11)
[2020-08-11] MEDS: calcitrioL 0.25 MCG CAPSULE PO SCH (09:12)
[2020-08-11] MEDS: DOXYCYCLINE HYCLATE 100 MG CAPSULE PO SCH (09:12)
[2020-08-11] MEDS: ASPIRIN 81 MG TAB.CHEW PO SCH (09:12)
[2020-08-11] MEDS: INSULIN NPH/REGULAR 70-30, 100 UNITS/ML, 10 ML VIAL SUBCUT SCH ×2 (09:13→18:00)
[2020-08-11 09:47] LABS: BASOPHILS # (AUTO) 0.1 K/uL (0.0-0.2); BASOPHILS % (AUTO) 1.2 % (0.0-2.0); EOSINOPHILS # (AUTO) 0.3 K/uL (0.0-0.4); EOSINOPHILS % (AUTO) 3.6 % (0.0-4.0); HEMATOCRIT 28.3 % (36-48); HEMOGLOBIN 9.1 g/dL (12.0-16.0); LYMPHOCYTES # (AUTO) 1.1 K/uL (1.0-5.5); LYMPHOCYTES % (AUTO) 13.7 % (20.5-51.5); MEAN CORPUSCULAR HEMOGLOBIN 30 pg (27-31); MEAN CORPUSCULAR HGB CONC 32 % (32-36); MEAN CORPUSCULAR VOLUME 94 fL (79.0-98.0); MONOCYTES # (AUTO) 0.4 K/uL (0.0-1.0); NEUTROPHILS % (AUTO) 76.5 % (40.0-70.0); PLATELET COUNT (AUTO) 167 K/uL (130-430); RED BLOOD CELL COUNT(AUTO) 3.02 MIL/uL (4.2-6.2); RED CELL DISTRIBUTION WIDTH 15.7 % (9.0-15.0); WHITE BLOOD COUNT (AUTO) 7.8 K/uL (4.8-10.8)
[2020-08-11 09:58] LABS: CREATININE 6.62 mg/dL (0.55-1.30); POTASSIUM 5.2 mmol/L (3.5-5.1)
[2020-08-11 10:10] LABS: PHOSPHORUS 7.4 mg/dL (2.7-4.5); TOTAL BILIRUBIN 0.4 mg/dL (0.0-1.0)
[2020-08-11] MEDS: INSULIN REGULAR, HUMAN 100 UNITS/ML, 10 ML VIAL (humuLIN R) SUBCUT PRN (11:20)
[2020-08-11 12:16] VITALS: BP_SYST 147
[2020-08-11] MEDS: ACETAMINOPHEN 325 MG TABLET PO PRN (14:42)
[2020-08-11 16:10] VITALS: BP_SYST 134
[2020-08-11] MEDS: METOPROLOL SUCCINATE 50 MG TAB.SR.24H (TOPROL XL) PO SCH (17:00)
[2020-08-11] MEDS: NITROGLYCERIN 0.4 MG/HR PATCH.TD24 TD SCH (18:06)
[2020-08-11 18:31] VITALS: BP_SYST 123
[2020-08-11] MEDS ORDERED: DOXY100T2 PO (18:38)
== END 2020-08-11 19:58 | disposition home or self-care (01) | DRG 291 ==
LOC: SED 13:45 → STU 17:01
PROVIDERS: ADMIT Internal Medicine Cardiovascular Disease; ATTEND Internal Medicine Cardiovascular Disease
PROC: 5A1D70Z Performance of Urinary Filtration, Intermittent, Less than 6 Hours Per Day (ICD-10-PCS; principal; 2020-08-11)
DX: I13.2 Hypertensive heart and chronic kidney disease with heart failure and with stage 5 chronic kidney disease, or end stage renal disease (principal); N18.6 End stage renal disease; I50.43 Acute on chronic combined systolic (congestive) and diastolic (congestive) heart failure; J18.9 Pneumonia, unspecified organism; Z68.41 Body mass index [BMI] 40.0-44.9, adult; Z99.2 Dependence on renal dialysis; E11.22 Type 2 diabetes mellitus with diabetic chronic kidney disease; E66.01 Morbid (severe) obesity due to excess calories; R07.89 Other chest pain; L02.221 Furuncle of abdominal wall; F32.9 Major depressive disorder, single episode, unspecified; J45.909 Unspecified asthma, uncomplicated; Z20.822 Contact with and (suspected) exposure to COVID-19; M10.9 Gout, unspecified; E11.40 Type 2 diabetes mellitus with diabetic neuropathy, unspecified; F41.9 Anxiety disorder, unspecified; Z79.4 Long term (current) use of insulin; Z79.82 Long term (current) use of aspirin; Z88.6 Allergy status to analgesic agent; Z88.0 Allergy status to penicillin; Z91.013 Allergy to seafood; Z88.2 Allergy status to sulfonamides; Z88.8 Allergy status to other drugs, medicaments and biological substances; Z91.09 Other allergy status, other than to drugs and biological substances; Z79.899 Other long term (current) drug therapy; Z90.49 Acquired absence of other specified parts of digestive tract; Z90.710 Acquired absence of both cervix and uterus
CPT/HCPCS: 36415; 71045; 71250-TC; 76376; 80053; 82962; 83605; 83880; 84100-TC; 84443-TC; 84484; 85025; 85610-TC; 85730-TC; 87040-TC; 87081; 93005; 94640; 96372; 99291; G0378; J1815; J1956; J2270; J3370; J7030; J7612

== ENCOUNTER 2020-08-30 09:45 | Emergency (ER) | payer OTHER, BC ==
[~2020-08-30] VITALS: Ht 154.9 cm; Wt 96.2 kg
[~2020-08-30 09:45] MED LIST changes: +DOXY100T2 PO
[2020-08-30 09:54] VITALS: BP_SYST 148
--- NOTE | 2020-08-30 09:54 | NUR ---
Placed in room 5 . Placed on diesel powerplant supervisor, blood pressure machine and pulse oximeter. To gown for exam. Side rails up.
[2020-08-30] MEDS ORDERED: IBUPROFEN 600 MG TABLET PO ONE (10:00)
[2020-08-30] MEDS ORDERED: ACETAMINOPHEN 500 MG TABLET PO ONE (10:00)
[2020-08-30] MEDS ORDERED: ONDANSETRON 4 MG ODT TAB PO ONE (10:00)
--- NOTE | 2020-08-30 10:00 | NUR ---
ER DR. GU AT THE BEDSIDE EXAMINING PT
--- NOTE | 2020-08-30 10:02 | NUR ---
PT CAME IN FROM HOME WITH C/O CHEST PAIN STARTING 3 DAYS AGO AFTER RECEIVING COVID VACCINE. REPORTS PAIN IS 4/10 NON-RADIATING. PT IS AAOX4, V/S STABLE
[2020-08-30] MEDS ORDERED: ONDA4TAB5 PO (10:06)
--- NOTE | 2020-08-30 10:07 | NUR ---
LAB AT THE BEDSIDE FOR BLOOD DRAW
[2020-08-30 10:26] LABS: BASOPHILS # (AUTO) 0.1 K/uL (0.0-0.2); BASOPHILS % (AUTO) 0.9 % (0.0-2.0); EOSINOPHILS # (AUTO) 0.2 K/uL (0.0-0.4); EOSINOPHILS % (AUTO) 3.3 % (0.0-4.0); HEMATOCRIT 30.2 % (36-48); HEMOGLOBIN 9.6 g/dL (12.0-16.0); LYMPHOCYTES # (AUTO) 0.7 K/uL (1.0-5.5); LYMPHOCYTES % (AUTO) 9.5 % (20.5-51.5); MEAN CORPUSCULAR HEMOGLOBIN 30 pg (27-31); MEAN CORPUSCULAR HGB CONC 32 % (32-36); MEAN CORPUSCULAR VOLUME 95 fL (79.0-98.0); MONOCYTES # (AUTO) 0.5 K/uL (0.0-1.0); MONOCYTES % (AUTO) 7.2 % (1.7-9.3); NEUTROPHILS # (AUTO) 5.6 K/uL (1.8-7.7); NEUTROPHILS % (AUTO) 79.1 % (40.0-70.0); PLATELET COUNT (AUTO) 144 K/uL (130-430); RED BLOOD CELL COUNT(AUTO) 3.18 MIL/uL (4.2-6.2); RED CELL DISTRIBUTION WIDTH 16.7 % (9.0-15.0)
--- NOTE | 2020-08-30 10:30 | NUR ---
PT RESTING IN BED, NO S/SX OF DISTRESS, V/S STABLE
[2020-08-30 10:39] LABS: CALCIUM 9.4 mg/dL (8.4-11.0)
[2020-08-30 10:43] LABS: CREATININE 9.32 mg/dL (0.55-1.30); POTASSIUM 7.2 mmol/L (3.5-5.1)
[2020-08-30 11:02] LABS: ALBUMIN 3.4 g/dL (3.4-4.8); TOTAL BILIRUBIN 0.6 mg/dL (0.0-1.0)
--- NOTE | 2020-08-30 11:20 | NUR ---
Patient given written and verbal discharge instructions and verbalizes understanding. ER MD discussed with patient the results and treatment provided. Patient in stable condition. ID arm band removed. IV catheter removed intact and dressing applied, no active bleeding. Rx of ZOFRAN given. Patient educated on pain management and to follow up with PMD. Pain Scale 0/10. Opportunity for questions provided and answered. Medication side effect fact sheet provided.
[2020-08-30 11:26] VITALS: BP_SYST 137
== END 2020-08-30 11:26 | disposition home or self-care (01) ==
LOC: SED 09:45
DX: E87.5 Hyperkalemia (principal); R53.81 Other malaise; E11.22 Type 2 diabetes mellitus with diabetic chronic kidney disease; I12.0 Hypertensive chronic kidney disease with stage 5 chronic kidney disease or end stage renal disease; N18.6 End stage renal disease; J45.909 Unspecified asthma, uncomplicated; Z88.0 Allergy status to penicillin; Z88.2 Allergy status to sulfonamides; Z88.5 Allergy status to narcotic agent; Z88.8 Allergy status to other drugs, medicaments and biological substances; Z79.899 Other long term (current) drug therapy; Z99.2 Dependence on renal dialysis
CPT/HCPCS: 36415; 80053; 85025; 93005; 99284; Q0162

== ENCOUNTER 2020-10-13 09:14 | Inpatient (IN) | payer OTHER, BC, SELFPAY ==
[~2020-10-13] VITALS: Ht 154.9 cm; Wt 101.2 kg
[~2020-10-13 09:14] MED LIST changes: +ONDA4TAB5 PO
[2020-10-13 09:15] VITALS: BP_SYST 141
--- NOTE | 2020-10-13 09:28 | NUR ---
Patient skipped hemodialysis today and came in for evaluation of a popped cyst on her abdominal fold. She presents with redness, tenderness, and taut skin on her abdominal fold, complaining of pain. She denies nausea, vomiting, diarrhea.
--- NOTE | 2020-10-13 09:32 | NUR ---
ER Dr. Witt at bedside examining patient.
[2020-10-13] MEDS ORDERED: MORPHINE 2 MG/ML INJ. SYRINGE IVP ONE (09:45)
[2020-10-13] MEDS ORDERED: DIPHENHYDRAMINE INJ 50 MG/ML VIAL IVP ONE (09:45)
--- NOTE | 2020-10-13 09:45 | NUR ---
Patient only allowed 1 attempt and states she wants someone else to do it.
--- NOTE | 2020-10-13 09:52 | NUR ---
JYOTSNA Davila attempted IV insertion. Patient states, "I'm done." She is refusing IV placement, Dr. Witt informed.
[2020-10-13 10:30] LABS: BASOPHILS # (AUTO) 0.1 K/uL (0.0-0.2); BASOPHILS % (AUTO) 1.3 % (0.0-2.0); EOSINOPHILS # (AUTO) 0.2 K/uL (0.0-0.4); EOSINOPHILS % (AUTO) 2.9 % (0.0-4.0); HEMATOCRIT 30.5 % (36-48); HEMOGLOBIN 9.8 g/dL (12.0-16.0); LYMPHOCYTES # (AUTO) 0.9 K/uL (1.0-5.5); LYMPHOCYTES % (AUTO) 10.8 % (20.5-51.5); MEAN CORPUSCULAR HEMOGLOBIN 30 pg (27-31); MEAN CORPUSCULAR HGB CONC 32 % (32-36); MEAN CORPUSCULAR VOLUME 93 fL (79.0-98.0); MONOCYTES # (AUTO) 0.6 K/uL (0.0-1.0); MONOCYTES % (AUTO) 6.8 % (1.7-9.3); NEUTROPHILS # (AUTO) 6.5 K/uL (1.8-7.7); NEUTROPHILS % (AUTO) 78.2 % (40.0-70.0); PLATELET COUNT (AUTO) 187 K/uL (130-430); RED BLOOD CELL COUNT(AUTO) 3.29 MIL/uL (4.2-6.2); RED CELL DISTRIBUTION WIDTH 16.6 % (9.0-15.0); WHITE BLOOD COUNT (AUTO) 8.3 K/uL (4.8-10.8)
[2020-10-13 10:40] LABS: CALCIUM 9.7 mg/dL (8.4-11.0)
[2020-10-13 10:44] LABS: INR 1.2 (0.8-1.2); PROTHROMBIN TIME 12.5 SECS (9.5-12.5)
[2020-10-13 10:46] LABS: ALBUMIN 3.2 g/dL (3.4-4.8); TOTAL BILIRUBIN 0.7 mg/dL (0.0-1.0)
[2020-10-13 10:54] LABS: CREATININE 8.72 mg/dL (0.55-1.30); POTASSIUM 7.4 mmol/L (3.5-5.1)
[2020-10-13] MEDS ORDERED: MORPHINE SULFATE 10 MG/ML VIAL IM ONE (11:15)
[2020-10-13] MEDS ORDERED: AMIT10TA6 PO (11:30)
--- NOTE | 2020-10-13 11:30 | NUR ---
Medication reconciliation completed with information provided by patient. Any prior medication reconciliation on file was reviewed and corrected.
--- NOTE | 2020-10-13 11:31 | NUR ---
inspector publications at lunch, will follow up for room assignment.
--- NOTE | 2020-10-13 11:38 | NUR ---
Patient will be admitted to care of Dr. Moreno. Admitted to Telemetry unit. Will go to room 105A. Belongings list completed. Complete and up to date summary report printed. SBAR report to be given at bedside with opportunity for questions.
--- NOTE | 2020-10-13 12:24 | NUR ---
Patient states she is unable to urinate.
--- NOTE | 2020-10-13 12:33 | NUR ---
IV HL PLACED, LACTIC OBTAINED, COVID SENT
--- NOTE | 2020-10-13 13:17 | NUR ---
Transfer to 105A via ACLS protocol. Licensed nurse present. IV present no signs or symptoms of infiltration.
[2020-10-13] MEDS ORDERED: LORATADINE 10 MG TABLET PO PRN (13:30)
[2020-10-13] MEDS ORDERED: ONDANSETRON 4 MG ODT TAB PO PRN (13:30)
--- NOTE | 2020-10-13 13:30 | NUR ---
ADMISSION NOTE Received patient from ER via gurney. Patient admitted with diagnosis of Cellulitis of abdominal wall,CKD. Patient is awake, alert, oriented X 4. Patient oriented to hospital room, call light, toileting, pain management and safety-teach back done. Patient informed that I will be her nurse and that her room number is 105-a. Personal belongings checked and Belongings List documented. Call light within reach.
[2020-10-13 13:40] VITALS: BP_SYST 138
[2020-10-13] MEDS: HYDROcodone/ACETAMIN 5-325 MG TAB (NORCO/ VICODIN) PO SCH ×3 (15:43→21:00)
[2020-10-13 16:03] VITALS: BP_SYST 146
--- NOTE | 2020-10-13 16:27 | NUR ---
HD: Hemodialysis started. No problem.
[2020-10-13] MEDS: SEVELAMER CARBONATE 800 MG TABLET PO SCH (18:03)
--- NOTE | 2020-10-13 18:52 | NUR ---
END OF SHIFT: PATIENT WATCHING TV AND SITTING ON THE BED,HAD DINNER. HEMODIALYSIS ALMOST FINISH. CALL LIGHT WITH IN REACH. BED LOCKED AT LOWEST POSITION. NOT IN ANY RESPIRATORY DISTRESS.
--- NOTE | 2020-10-13 19:30 | NUR ---
OPENING NOTE: RCVD PT FROM SACHI RN. PT IS SITTING UP IN BED, A&OX4. PT CAN AMBULATE TO RESTROOM. PT IS BREATHING NONLABORED TO ROOM AIR. PT HAS IV ON RFA #18 SALINE LOCKED. PLACED LIMB ALERT BRACELET TO PT LEFT WRIST DUE TO DIALYSIS ACCESS ON THAT ARM. SAFETY AND FALL PRECAUTIONS IN PLACE. CALL LIGHT WITH PATIENT. WILL CONTINUE TO MONITOR.
[2020-10-13 20:00] VITALS: BP_SYST 118
--- NOTE | 2020-10-13 20:07 | NUR ---
PAGED DR. SIOBHAN BHAGAT CRIMINAL JUSTICE PROFESSOR I SPOKE WITH CHRIS EXCHANGE
--- NOTE | 2020-10-13 20:36 | NUR ---
SECOND PAGED FOR DR. BHAGAT HE IS KILN LABOURER FOR DR. MCCANN I SPOKE WITH DREA
--- NOTE | 2020-10-13 20:40 | NUR ---
SPOKE TO DR BHAGAT REGARDING PT DOES NOT HAVE ACCU CHECKS ORDERED HOWEVER SHE STATE SHE NORMALLY CHECKS BLOOD SUGAR BEFORE BREAKFAST AND DINNER. HE STATED OK TO ORDER ACHS ACCUCHECK WITH REGULAR SLIDING SCALE. WILL CARRY OUT NEW ORDER.
[2020-10-13] MEDS: AMITRIPTYLINE HCL 10 MG TABLET (ELAVIL) PO SCH (20:55)
[2020-10-13] MEDS: METOPROLOL SUCCINATE 50 MG TAB.SR.24H (TOPROL XL) PO SCH (20:55)
[2020-10-13] MEDS: amLODIPine BESYLATE 5 MG TABLET PO SCH (20:55)
[2020-10-13] MEDS: traZODone HCL 50 MG TABLET (DESYREL) PO SCH (20:56)
[2020-10-13] MEDS: INSULIN REGULAR, HUMAN 100 UNITS/ML, 10 ML VIAL (humuLIN R) SUBCUT PRN (20:59)
[2020-10-13] MEDS: INSULIN NPH/REGULAR 70-30, 100 UNITS/ML, 10 ML VIAL SUBCUT SCH (21:00)
--- NOTE | 2020-10-13 21:00 | NUR ---
RN ROUNDS PT VITAL SIGNS STABLE. PT TOLERATED MEDICATIONS ORDERED. WILL CONTINUE TO MONITOR.
--- NOTE | 2020-10-14 | NUR ---
RN ROUNDS PT VITAL SIGNS STABLE. NO S/S OF DISTRESS AT THIS TIME .WILL CONTINUE TO MONITOR .
[2020-10-14] MEDS: HYDROcodone/ACETAMIN 5-325 MG TAB (NORCO/ VICODIN) PO SCH ×4 (00:40→21:44)
[2020-10-14 01:02] VITALS: BP_SYST 125
--- NOTE | 2020-10-14 01:40 | NUR ---
PT COMPLAIN OF LOW BLOOD SUGAR. UPON CHECKING IT WAS:48. GAVE PT SNACKS AND JUICE. PT ASYMPTOMATIC. RECHECKED @ 0210 IT WAS:68 RECHECKED @ 0236: 76 RECHECKED @ 0321: 99
--- NOTE | 2020-10-14 04:59 | NUR ---
Consultation Paged Reason for Consultation: Cellulitis Was consult called: Y Person who was notified: Chinmay Hoyos was notified as per Dr. Moreno notes Consulting Physician: Chinmay Hoyos Ordering Physician: Dr. Moreno
--- NOTE | 2020-10-14 05:07 | NUR ---
Consultation Paged Reason for Consultation: esrd Was consult called: Y Person who was notified: Juan Antonio Murray was notified as per Dr. Moreno notes Consulting Physician: Juan Antonio Murray Ordering Physician: Dr. Moreno
[2020-10-14] MEDS: LEVOTHYROXINE SODIUM 0.025 MG TABLET PO SCH (06:07)
[2020-10-14] MEDS: INSULIN NPH/REGULAR 70-30, 100 UNITS/ML, 10 ML VIAL SUBCUT SCH ×2 (06:13→21:49)
[2020-10-14 06:41] LABS: BASOPHILS # (AUTO) 0.1 K/uL (0.0-0.2); BASOPHILS % (AUTO) 0.9 % (0.0-2.0); EOSINOPHILS # (AUTO) 0.3 K/uL (0.0-0.4); HEMATOCRIT 28.8 % (36-48); HEMOGLOBIN 9.2 g/dL (12.0-16.0); LYMPHOCYTES # (AUTO) 0.9 K/uL (1.0-5.5); MEAN CORPUSCULAR HEMOGLOBIN 30 pg (27-31); MEAN CORPUSCULAR HGB CONC 32 % (32-36); MEAN CORPUSCULAR VOLUME 92 fL (79.0-98.0); MONOCYTES # (AUTO) 0.5 K/uL (0.0-1.0); MONOCYTES % (AUTO) 6.6 % (1.7-9.3); NEUTROPHILS % (AUTO) 76.5 % (40.0-70.0); PLATELET COUNT (AUTO) 171 K/uL (130-430); RED BLOOD CELL COUNT(AUTO) 3.13 MIL/uL (4.2-6.2); RED CELL DISTRIBUTION WIDTH 17.3 % (9.0-15.0); WHITE BLOOD COUNT (AUTO) 7.8 K/uL (4.8-10.8)
--- NOTE | 2020-10-14 06:44 | NUR ---
CLOSING NOTE: PT HAS NO S/S OF DISTRESS THIS MORNING. PT IS BREATHING NONLABORED TO ROOM AIR. PT HAS IV ON RFA #18 SALINE LOCKED. SAFETY AND FALL PRECAUTIONS MAINTAINED. CALL LIGHT WITH PATIENT. WILL CONTINUE TO MONITOR UNTIL CARE ENDORSED TO DAYSHIFT RN .
[2020-10-14 07:04] LABS: ALBUMIN 2.9 g/dL (3.4-4.8); CALCIUM 9.6 mg/dL (8.4-11.0); CREATININE 6.49 mg/dL (0.55-1.30); POTASSIUM 5.2 mmol/L (3.5-5.1); TOTAL BILIRUBIN 0.5 mg/dL (0.0-1.0)
--- NOTE | 2020-10-14 07:30 | NUR ---
AM ROUNDS: PATIENT SITTING ON THE CHAIR.WATCHING TV. CALL LIGHT WITH IN REACH. CALLED DIETARY FOR MENU PER PATIENT'S REQUEST. IV SALINE LOCK. SAFETY MEASURES RENDERED. STABLE. Addendum: 10/14/20 at 0818 by Radha De Los Santos RN ADDED NOTES: LEFT UPPER ARM AV SHUNT INTACT.
[2020-10-14 08:04] VITALS: BP_SYST 122
[2020-10-14] MEDS: SEVELAMER CARBONATE 800 MG TABLET PO SCH ×3 (08:30→17:36)
[2020-10-14] MEDS: ASPIRIN 81 MG TAB.CHEW PO SCH (08:30)
[2020-10-14] MEDS: METOPROLOL SUCCINATE 50 MG TAB.SR.24H (TOPROL XL) PO SCH ×2 (08:30→21:00)
[2020-10-14] MEDS: ASCORBIC ACID 500 MG TABLET PO SCH (08:30)
[2020-10-14] MEDS: calcitrioL 0.25 MCG CAPSULE PO SCH (08:30)
[2020-10-14] MEDS ORDERED: MILK OF MAGNESIA 30 ML UDC PO ONE (09:30)
[2020-10-14] MEDS ORDERED: levoFLOXacin 500 MG TABLET PO ONE (11:15)
[2020-10-14] MEDS ORDERED: CLINDAMYCIN 600 MG in D5W 50 ML IV SCH (12:00)
[2020-10-14] MEDS: DOCUSATE SODIUM 250 MG CAPSULE PO PRN (12:07)
[2020-10-14 12:38] VITALS: BP_SYST 124
--- NOTE | 2020-10-14 12:46 | NUR ---
Wound Evaluation: Late note for 10/14/2020 at 1246 secondary to patient care. Wound Consult ordered for Low Victorino Score. Patient evaluated for a low Victorino score of 17. Patient was awake, alert, oriented and received in a Manjula Bed with an Atmos-Air 9000 mattress. Patient is able to turn in bed independently. Skin assessment: 1. Right Lower Abdomen: Skin tear, present on admission. Patient said skin tear was from an adhesive. Wound bed has 100% red tissue. No odor, no drainage. Periwound intact. Several small areas of scar tissue present medial to site. Wound measures 0.7 cm x 1.0 cm. Recommend: Cleanse skin tear with normal saline. Apply sure prep to perimeter of skin tear. Apply Hydrogel to skin tear bed. Cover site with foam dressing. Perform site care daily, and as needed for dressing soiling or dislodgment. Recommend: Encourage and assist patient as needed with repositioning every 2 hours with pillow support. Elevate, off-load and float bilateral heels with pillows. Offload pressure areas with pillows for pressure re-distribution. Perform skin care and monitor skin integrity Q shift. Use moisture barrier cream on moisture susceptible areas QID and PRN for soiling.
--- NOTE | 2020-10-14 12:55 | NUR ---
LEVAQUIN IVPB: STARTED ON IV LEVAQUIN ORDERED BY DR Mercy AWAD. WITH NO PROBLEM.
[2020-10-14] MEDS ORDERED: LEVOFLOXACIN IN DEXTROSE 5 % 100 ML IV SCH (13:00)
[2020-10-14] MEDS ORDERED: VANCOMYCIN HCL 1,500 MG in NS 250 ML IV ONE (13:00)
--- NOTE | 2020-10-14 13:22 | NUR ---
PT C/O ITCHING: STOPPED IV LEVAQUIN IN THE MIDDLE OF INFUSION DUE TO PATIENT C/O ITCHING.WILL PAGED ID FOR ALLERGIC REACTION.
[2020-10-14 16:00] VITALS: BP_SYST 125
--- NOTE | 2020-10-14 16:00 | NUR ---
IV VANCO: STARTED IV VANCOMYCIN AND NO NO ALLERGIC REACTION NOTED DURING 2 HOURS OF INFUSION.
--- NOTE | 2020-10-14 16:30 | NUR ---
RECEIVED PT FROM JYOTSNA MCKNIGHT. PT STABLE AT THIS TIME.
--- NOTE | 2020-10-14 16:44 | NUR ---
TRANSFER CARE: REPORT GIVEN TO ARIN,PATIENT TOLERATED IV VANCOMYCIN WITH NO ALLERGIC REACTION. ENDORSED TO PAGE DR Mercy AWAD FOR IV LEVAQUIN'S REACTION. STABLE.
--- NOTE | 2020-10-14 16:55 | NUR ---
ID MD DR CLARY AWAD WAS CALLED TO NOTIFY THAT PT IS HAVING AN ALLERGIC REACTION TO LEVAQUIN.
--- NOTE | 2020-10-14 16:56 | NUR ---
SPOKE TO DR. AWAD REGARDING PT'S ITCHINESS FROM LEVAQUIN, RECEIVED ORDERS FOR ONE TIME DOSE OF BENADRYL, VERIFIED, AND CARRIED OUT, DR. AWAD STATED TO FINISH LEVAQUIN DOSE.
--- NOTE | 2020-10-14 16:57 | NUR ---
HIGH ALERT NOTE: Called Dr. AWAD back at [phone] identified within the medical roster to verify physician authenticity.
[2020-10-14] MEDS ORDERED: DIPHENHYDRAMINE INJ 50 MG/ML VIAL IVP ONE (17:00)
[2020-10-14] MEDS: INSULIN REGULAR, HUMAN 100 UNITS/ML, 10 ML VIAL (humuLIN R) SUBCUT PRN ×2 (17:43→22:55)
--- NOTE | 2020-10-14 18:05 | NUR ---
accucheck done, insulin coverage administered per sliding scale. flushed iv line and while administering benadryl, pt c/o pain, flushed line and checked for blood return, blood return noted, pt continue to c/o pain. attempted to re-insert iv line twice, unsuccesfully, pt refuse to have iv line re-inserted, education given, pt continue to refuse, will endorse to noc nurse. pt requested to have iv line removed, education given, pt continue to say, "I want it out." removed iv line.
--- NOTE | 2020-10-14 19:06 | NUR ---
CLOSING NOTES PT SITTING IN CHAIR WATCHING TV. NONLABORED BREATHING NOTED ON ROOM AIR, TOLERATING WELL. NO ACUTE DISTRESS NOTED. ALL NEEDS MET. CALL LIGHT IN REACH. FALL AND ASPIRATION PRECAUTIONS IN PLACE. NO IV LINE NOTED. PT REFUSED, WILL ENDORSE TO NOC NURSE.
[2020-10-14 20:00] VITALS: BP_SYST 125
--- NOTE | 2020-10-14 20:05 | NUR ---
Opening notes/Refused IV start Pt AAOx4, VSS, afebrile. No c/o pain at this time. Pt refused IV start, states painful/itchy. Explained to pt risks/benefits, pt verbalized understanding. Will notify MD. Cardenas AV shunt present. Call light within reach. Bed low, locked, siderails up x2. To monitor.
[2020-10-14] MEDS: MUPIROCIN 2% TOPICAL OINTMENT 22 GM TP SCH (21:43)
[2020-10-14] MEDS: traZODone HCL 50 MG TABLET (DESYREL) PO SCH (21:44)
[2020-10-14] MEDS: AMITRIPTYLINE HCL 10 MG TABLET (ELAVIL) PO SCH (21:44)
[2020-10-14] MEDS: amLODIPine BESYLATE 5 MG TABLET PO SCH (21:45)
--- NOTE | 2020-10-14 22:00 | NUR ---
Wound care Abd wound care done, cleansed w/ NS, patted dry, applied Bactroban per MD order and covered w/ optifoam dressing. No drainage, no odor noted. Pt tolerated well.
[2020-10-15] VITALS: BP_SYST 139
--- NOTE | 2020-10-15 01:56 | NUR ---
informed Another RN speaking w/ Dr. Serna on the phone. Spoke w/ and informed him that pt refused IV restart and did not receive Levaquin abx.
[2020-10-15] MEDS: LEVOTHYROXINE SODIUM 0.025 MG TABLET PO SCH (06:50)
--- NOTE | 2020-10-15 07:00 | NUR ---
Closing notes Pt AAOx4, no s/s distress noted. Blood drawn per laborer gold leaf. Blood sugar checked 87. Abd dressing C/D/I. Call light within reach. Bed low, locked, siderails up x2. To endorse to AM nurse.
[2020-10-15] MEDS: INSULIN NPH/REGULAR 70-30, 100 UNITS/ML, 10 ML VIAL SUBCUT SCH ×2 (07:01→22:31)
--- NOTE | 2020-10-15 08:00 | NUR ---
OPENING NOTES: PATIENT RESTING IN BED. NO SIGNS OF ACUTE DISTRESS NOTED. FALL AND SAFETY PRECAUTION REINFORCED. CALL LIGHT WITHIN REACH.
[2020-10-15] MEDS: METOPROLOL SUCCINATE 50 MG TAB.SR.24H (TOPROL XL) PO SCH ×2 (09:00→21:00)
[2020-10-15] MEDS: HYDROcodone/ACETAMIN 5-325 MG TAB (NORCO/ VICODIN) PO SCH ×3 (09:00→22:09)
[2020-10-15 09:37] LABS: BASOPHILS % (AUTO) 0.5 % (0.0-2.0); EOSINOPHILS # (AUTO) 0.3 K/uL (0.0-0.4); EOSINOPHILS % (AUTO) 3.7 % (0.0-4.0); HEMATOCRIT 29.3 % (36-48); HEMOGLOBIN 9.3 g/dL (12.0-16.0); LYMPHOCYTES # (AUTO) 1.1 K/uL (1.0-5.5); LYMPHOCYTES % (AUTO) 13.6 % (20.5-51.5); MEAN CORPUSCULAR HEMOGLOBIN 30 pg (27-31); MEAN CORPUSCULAR HGB CONC 32 % (32-36); MEAN CORPUSCULAR VOLUME 93 fL (79.0-98.0); MONOCYTES # (AUTO) 0.5 K/uL (0.0-1.0); MONOCYTES % (AUTO) 6.2 % (1.7-9.3); NEUTROPHILS # (AUTO) 6.1 K/uL (1.8-7.7); PLATELET COUNT (AUTO) 184 K/uL (130-430); RED BLOOD CELL COUNT(AUTO) 3.15 MIL/uL (4.2-6.2)
[2020-10-15] MEDS ORDERED: MORPHINE 2 MG/ML INJ. SYRINGE IVP ONE (09:45)
[2020-10-15] MEDS ORDERED: NALOXONE HCL 0.4 MG/ML AMP (NARCAN) IVP PRN (09:45)
[2020-10-15] MEDS: SEVELAMER CARBONATE 800 MG TABLET PO SCH ×4 (09:46→18:30)
[2020-10-15] MEDS: ASCORBIC ACID 500 MG TABLET PO SCH (09:46)
[2020-10-15] MEDS: calcitrioL 0.25 MCG CAPSULE PO SCH (09:46)
[2020-10-15] MEDS: ASPIRIN 81 MG TAB.CHEW PO SCH (09:47)
[2020-10-15 09:48] LABS: ALBUMIN 3.1 g/dL (3.4-4.8); CALCIUM 9.4 mg/dL (8.4-11.0); PHOSPHORUS 8.3 mg/dL (2.7-4.5); POTASSIUM 5.8 mmol/L (3.5-5.1); TOTAL BILIRUBIN 0.6 mg/dL (0.0-1.0)
[2020-10-15] MEDS: MUPIROCIN 2% TOPICAL OINTMENT 22 GM TP SCH ×2 (09:48→22:08)
[2020-10-15 09:56] LABS: CREATININE 8.08 mg/dL (0.55-1.30)
[2020-10-15] MEDS ORDERED: EPOETIN ALFA 10,000 UNITS/ML VIAL IVP ONE (10:15)
--- NOTE | 2020-10-15 10:46 | NUR ---
CONSULTATION: REASON FOR CONSULT: PAIN CONSULTING PHYSICIAN: KELLY ORDERED BY: SIOBHAN MENDOZA ALREADY IN THE HOSPITAL AND AWARE OF CONSULT
[2020-10-15] MEDS ORDERED: DIATR MEGLU/DIATRIZ SOD 30 ML SOLUTION PO ONE (10:59)
[2020-10-15] MEDS ORDERED: VANCOMYCIN HCL 750 MG in NS 250 ML IV ONE (16:00)
--- NOTE | 2020-10-15 16:00 | NUR ---
PATIENT REFUSED IV REINSERTION; PATIENT REFUSED IV REINSERTION AND VANCOMYCIN ADMINISTRATION. DR. MCCANN INFORMED.
[2020-10-15 16:25] VITALS: BP_SYST 123
[2020-10-15] MEDS: INSULIN REGULAR, HUMAN 100 UNITS/ML, 10 ML VIAL (humuLIN R) SUBCUT PRN ×2 (16:59→22:31)
--- NOTE | 2020-10-15 19:00 | NUR ---
CLOSING NOTES: PATIENT RESTING IN BED. NO SIGNS OF ACUTE DISTRESS NOTED. FALL AND SAFETY PRECAUTION REINFORCED. CALL LIGHT WITHIN REACH.
[2020-10-15 20:00] VITALS: BP_SYST 117
--- NOTE | 2020-10-15 20:10 | NUR ---
Opening notes Pt AAOx4, VSS, afebrile. No s/s distress noted. L. arm AV shunt good thrill and bruit noted. Call light within reach. Pt ambulates to bathroom. Bed low, locked, siderails up x2. To monitor.
[2020-10-15] MEDS: amLODIPine BESYLATE 5 MG TABLET PO SCH (22:08)
[2020-10-15] MEDS: traZODone HCL 50 MG TABLET (DESYREL) PO SCH (22:09)
[2020-10-15] MEDS: AMITRIPTYLINE HCL 10 MG TABLET (ELAVIL) PO SCH (22:09)
[2020-10-16 00:45] VITALS: BP_SYST 105
--- NOTE | 2020-10-16 00:45 | NUR ---
Rounds Pt asleep, VSS, no s/s distress noted. Call light within reach. Safety maintained. To monitor.
--- NOTE | 2020-10-16 01:20 | NUR ---
MD Pankaj hebert. MD daniel Castillo IV.
[2020-10-16] MEDS: DOCUSATE SODIUM 250 MG CAPSULE PO PRN ×2 (02:49→21:34)
--- NOTE | 2020-10-16 03:25 | NUR ---
Blood sugar 49 Pt called states her sugar is low. BS checked 49. Pt asymptomatic, no change in mental status. Two sandwhich and apple juice given. Pt tolerated well. 0358--Blood sugar re checked 94, pt states she feels better but tired. Will continue to monitor.
[2020-10-16] MEDS: LEVOTHYROXINE SODIUM 0.025 MG TABLET PO SCH (06:56)
[2020-10-16] MEDS: INSULIN NPH/REGULAR 70-30, 100 UNITS/ML, 10 ML VIAL SUBCUT SCH ×2 (06:59→21:16)
[2020-10-16 07:09] LABS: ALBUMIN 2.6 g/dL (3.4-4.8); CALCIUM 9.2 mg/dL (8.4-11.0); CREATININE 6.07 mg/dL (0.55-1.30); POTASSIUM 4.7 mmol/L (3.5-5.1); TOTAL BILIRUBIN 0.6 mg/dL (0.0-1.0)
--- NOTE | 2020-10-16 07:49 | NUR ---
Initial notes Sitting in the chair, denies any pain or discomfort at this time. Ambulate with steady gait. No distress. enc. to call for help as needed.
[2020-10-16 08:04] VITALS: BP_SYST 131
[2020-10-16] MEDS: calcitrioL 0.25 MCG CAPSULE PO SCH (08:44)
[2020-10-16] MEDS: SEVELAMER CARBONATE 800 MG TABLET PO SCH ×3 (08:44→17:37)
[2020-10-16] MEDS: HYDROcodone/ACETAMIN 5-325 MG TAB (NORCO/ VICODIN) PO SCH ×3 (08:44→21:24)
[2020-10-16] MEDS: ASPIRIN 81 MG TAB.CHEW PO SCH (08:44)
[2020-10-16] MEDS: ASCORBIC ACID 500 MG TABLET PO SCH (08:44)
[2020-10-16] MEDS: MUPIROCIN 2% TOPICAL OINTMENT 22 GM TP SCH ×2 (08:46→21:00)
[2020-10-16] MEDS: METOPROLOL SUCCINATE 50 MG TAB.SR.24H (TOPROL XL) PO SCH ×2 (08:47→21:25)
[2020-10-16] MEDS ORDERED: LEVOFLOXACIN 250 MG/D5W 50 ML IV SCH (09:00)
[2020-10-16] MEDS ORDERED: levoFLOXacin 250 MG TABLET PO SCH (09:00)
[2020-10-16 09:06] LABS: VANCOMYCIN,RANDOM 12.2 ug/mL
[2020-10-16] MEDS ORDERED: POLYETHYLENE GLYCOL 3350, 17 GM/ POWD.PACK PO ONE (10:15)
--- NOTE | 2020-10-16 10:57 | NUR ---
Notes Patient refused miralax
[2020-10-16 12:10] VITALS: BP_SYST 141
[2020-10-16] MEDS: INSULIN REGULAR, HUMAN 100 UNITS/ML, 10 ML VIAL (humuLIN R) SUBCUT PRN ×3 (12:21→21:17)
--- NOTE | 2020-10-16 14:00 | NUR ---
Notes Patient resting, no distress. Family at bedside.
--- NOTE | 2020-10-16 15:00 | NUR ---
Notes patient took shower and Bactroban applied on the abdomen as ordered.
[2020-10-16 16:12] VITALS: BP_SYST 144
--- NOTE | 2020-10-16 17:16 | NUR ---
Dietitian Recommendations 1) Continue current diet 2) Add Clint BID for wound healing KW, RD
--- NOTE | 2020-10-16 18:11 | NUR ---
Notes Sitting in the chair, eating dinner. Pain is controlled. will endorse
[2020-10-16 21:00] VITALS: BP_SYST 149
[2020-10-16] MEDS: AMITRIPTYLINE HCL 10 MG TABLET (ELAVIL) PO SCH (21:24)
[2020-10-16] MEDS: amLODIPine BESYLATE 5 MG TABLET PO SCH (21:25)
[2020-10-16] MEDS: traZODone HCL 50 MG TABLET (DESYREL) PO SCH (21:25)
--- NOTE | 2020-10-16 21:45 | NUR ---
BSG BLOOD SUGAR Glucose 266 mg dl sliding scale as ordered , juice & snacks provided tolerate .
--- NOTE | 2020-10-16 22:26 | NUR ---
ASSIST OUT OF BED TO Rest Room ambulates Remind patient for call franco use , no SOB noted activity tolerated .
[2020-10-17 00:15] VITALS: BP_SYST 137
--- NOTE | 2020-10-17 02:13 | NUR ---
HOURLY ROUNDING patient Resting chest movement symmetrical also unlabored .
[2020-10-17] MEDS: LEVOTHYROXINE SODIUM 0.025 MG TABLET PO SCH (06:04)
[2020-10-17] MEDS: INSULIN NPH/REGULAR 70-30, 100 UNITS/ML, 10 ML VIAL SUBCUT SCH ×2 (06:07→21:46)
[2020-10-17] MEDS: INSULIN REGULAR, HUMAN 100 UNITS/ML, 10 ML VIAL (humuLIN R) SUBCUT PRN ×4 (06:08→21:47)
[2020-10-17 08:00] VITALS: BP_SYST 126
--- NOTE | 2020-10-17 08:00 | NUR ---
OPENING NOTES RESTING IN BED, ALERT AND ORIENTED. NO SHORTNESS OF BREATH ON ROOM AIR. 5/10 PAIN ON THE ABDOMINAL AREA. WILL GIVE SCHEDULED PAIN MEDICATION. FALL AND SAFETY CHECKS DONE. CALL LIGHT WITHIN REACH. WILL MONITOR.
[2020-10-17] MEDS: ASCORBIC ACID 500 MG TABLET PO SCH (08:41)
[2020-10-17] MEDS: MUPIROCIN 2% TOPICAL OINTMENT 22 GM TP SCH ×2 (08:41→21:38)
[2020-10-17] MEDS: HYDROcodone/ACETAMIN 5-325 MG TAB (NORCO/ VICODIN) PO SCH ×3 (08:42→21:36)
[2020-10-17] MEDS: calcitrioL 0.25 MCG CAPSULE PO SCH (08:43)
[2020-10-17] MEDS: SEVELAMER CARBONATE 800 MG TABLET PO SCH ×3 (08:43→17:35)
[2020-10-17] MEDS: METOPROLOL SUCCINATE 50 MG TAB.SR.24H (TOPROL XL) PO SCH ×2 (08:43→21:36)
[2020-10-17] MEDS: ASPIRIN 81 MG TAB.CHEW PO SCH (08:43)
[2020-10-17] MEDS: POLYETHYLENE GLYCOL 3350, 17 GM/ POWD.PACK PO SCH (08:44)
[2020-10-17 12:04] VITALS: BP_SYST 125
[2020-10-17] MEDS ORDERED: BISACODYL 5 MG TABLET.DR (DULCOLAX) PO ONE (16:00)
[2020-10-17] MEDS ORDERED: MINERAL OIL 30 ML UDC PO ONE (16:00)
[2020-10-17 16:03] VITALS: BP_SYST 134
--- NOTE | 2020-10-17 16:30 | NUR ---
WOUND CARE WOUND CARE DONE PER GUIDELINES. PATIENT TOLERATED PROCEDURE.
--- NOTE | 2020-10-17 16:45 | NUR ---
MD ROUNDS SEEN BY DR. GOETZ AT BEDSIDE. WEIGHED PATIENT PER MD'S REQUEST 223 LBS.
--- NOTE | 2020-10-17 19:00 | NUR ---
CLOSING NOTES RESTING IN BED, TALKING TO FAMILY. DENIES ANY PAIN. NO SHORTNESS OF BREATH ON ROOM AIR. ALL NEEDS MET. SAFETY CHECKS DONE. WILL ENDORSE TO NIGHT NURSE.
--- NOTE | 2020-10-17 19:35 | NUR ---
OPENING NOTES PATIENT SITTING IN BED. RESPIRATIONS EVEN AND UNLABORED ON RA. NO SIGNS OF DISTRESS NOTED. PATIENT DENIES PAIN AT THIS TIME. PT ATE 95% OF DINNER STATING, "THE FOOD'S PRETTY GOOD FOR BEING IN A HOSPITAL". NO IV NOTED. PT REFUSED. MD AWARE. ESTHER AV SHUNT. BRUIT/THRILL AUSCULTATED. ABDOMINAL WALL DISTENDED, AND HARD. PT AAO X4. CLOSED WOUNDS IN LOWER ABDOMEN. RASH NOTED UNDER RIGHT BREAST. PT AMBULATORY. BED IN LOW AND LOCKED POSITION. SAFETY/FALL PRECAUTIONS IN PLACE. CALL LIGHT WITHIN REACH. WILL CONTINUE TO MONITOR.
[2020-10-17 20:00] VITALS: BP_SYST 139
--- NOTE | 2020-10-17 20:30 | NUR ---
PT ROOM CHANGED PT MOVED FROM 105A TO 102A. PT COOPERATIVE AND TOLERATED MOVE WELL.
[2020-10-17] MEDS: amLODIPine BESYLATE 5 MG TABLET PO SCH (21:35)
[2020-10-17] MEDS: AMITRIPTYLINE HCL 10 MG TABLET (ELAVIL) PO SCH (21:35)
[2020-10-17] MEDS: traZODone HCL 50 MG TABLET (DESYREL) PO SCH (21:35)
--- NOTE | 2020-10-17 23:45 | NUR ---
TRANSFERRED CARE TO RN. REPORT GIVEN. PT SITTING IN BED. RESPIRATIONS EVEN AND UNLABORED. BED IN LOW AND LOCKED POSITION. SAFETY/FALL PRECAUTIONS IN PLACE. NO IV IN PLACE. MD AND RN NOTIFIED.
--- NOTE | 2020-10-17 23:45 | NUR ---
Assumed care Patient is sitting up in bed, on phone. no signs of distress noted. Breathing even and unlabored on room air. No IV access, MD is aware. LAV shunt in place, bruit and thrill present. No needs at this time. Call light with the patient. Safety precautions in place.
[2020-10-18 01:31] VITALS: BP_SYST 132
--- NOTE | 2020-10-18 04:08 | NUR ---
RN rounds Patient is resting in bed, no signs of distress noted. Breathing even and unlabored on room air. No needs at this time. Call light with the patient. Safety precautions in place.
[2020-10-18] MEDS: LEVOTHYROXINE SODIUM 0.025 MG TABLET PO SCH (06:20)
--- NOTE | 2020-10-18 06:50 | NUR ---
Nutrition Update Victorino Scale 18 noted. Pt admitted for Cellulitis of abdominal wall, CKD Diet: renal BMI: 42.1 kg/m2 RD to follow per nutrition care standards.
[2020-10-18] MEDS ORDERED: DEXTROSE 50% JECT 50 ML DISP.SYRIN IVP PRN (07:00)
[2020-10-18] MEDS: INSULIN NPH/REGULAR 70-30, 100 UNITS/ML, 10 ML VIAL SUBCUT SCH (07:00)
[2020-10-18] MEDS ORDERED: D5W 1,000 ML IV PRN (07:00)
[2020-10-18] MEDS ORDERED: GLUCOSE (DEXTROSE) ORAL GEL -Adults PO PRN (07:00)
--- NOTE | 2020-10-18 07:27 | NUR ---
Closing notes Accucheck 54. Food and drinks given. Rechecked sugar. 56. Patient refusing glutose gel. "states I am feeling okay, I don't need the gel, I can wait for breakfast." Patient is asymptomatic at this time. More apple juice given to patient. Endorsed to day shift to inform Dr. Moreno. All needs met throughout the shift. Call light with the patient. Safety precautions in place. Care endorsed to day shift RN.
[2020-10-18 08:06] VITALS: BP_SYST 117
[2020-10-18] MEDS: POLYETHYLENE GLYCOL 3350, 17 GM/ POWD.PACK PO SCH (08:11)
[2020-10-18] MEDS: ASCORBIC ACID 500 MG TABLET PO SCH (08:11)
[2020-10-18] MEDS: ASPIRIN 81 MG TAB.CHEW PO SCH (08:13)
[2020-10-18] MEDS: METOPROLOL SUCCINATE 50 MG TAB.SR.24H (TOPROL XL) PO SCH (08:13)
[2020-10-18] MEDS: HYDROcodone/ACETAMIN 5-325 MG TAB (NORCO/ VICODIN) PO SCH ×2 (08:13→15:00)
[2020-10-18] MEDS: calcitrioL 0.25 MCG CAPSULE PO SCH (08:14)
[2020-10-18] MEDS: SEVELAMER CARBONATE 800 MG TABLET PO SCH ×2 (08:14→12:19)
[2020-10-18] MEDS: MUPIROCIN 2% TOPICAL OINTMENT 22 GM TP SCH (08:15)
--- NOTE | 2020-10-18 08:17 | NUR ---
opening note Patient is resting in bed A&Ox4 no complaint of pain or discomfort, no signs or symptoms of respiratory distress. No IV in place, MD is aware. Educated patient on plan of care, patient verbalized understanding. Fall and aspiration precautions are in place. Will continue to monitor.
[2020-10-18] MEDS ORDERED: MINERAL OIL 30 ML UDC PO SCH (09:00)
--- NOTE | 2020-10-18 09:20 | NUR ---
MD rounds Dr. Hernández assessed patient, updated on current status. MD would like patient to undergo dialysis and possible discharge.
[2020-10-18] MEDS ORDERED: Vancomycin Per Pharmacy XX (09:41)
[2020-10-18] MEDS ORDERED: DOXYCYCLINE HYCLATE 100 MG CAPSULE PO ONE ×2 (10:00→13:00)
[2020-10-18 10:56] LABS: BASOPHILS # (AUTO) 0.1 K/uL (0.0-0.2); BASOPHILS % (AUTO) 0.9 % (0.0-2.0); EOSINOPHILS # (AUTO) 0.3 K/uL (0.0-0.4); HEMATOCRIT 28.2 % (36-48); HEMOGLOBIN 9.1 g/dL (12.0-16.0); LYMPHOCYTES # (AUTO) 0.7 K/uL (1.0-5.5); LYMPHOCYTES % (AUTO) 9.9 % (20.5-51.5); MEAN CORPUSCULAR HEMOGLOBIN 29 pg (27-31); MEAN CORPUSCULAR HGB CONC 32 % (32-36); MEAN CORPUSCULAR VOLUME 90 fL (79.0-98.0); MONOCYTES # (AUTO) 0.4 K/uL (0.0-1.0); MONOCYTES % (AUTO) 4.8 % (1.7-9.3); NEUTROPHILS % (AUTO) 80.4 % (40.0-70.0); PLATELET COUNT (AUTO) 193 K/uL (130-430); RED BLOOD CELL COUNT(AUTO) 3.12 MIL/uL (4.2-6.2); RED CELL DISTRIBUTION WIDTH 16.9 % (9.0-15.0); WHITE BLOOD COUNT (AUTO) 7.5 K/uL (4.8-10.8)
[2020-10-18] MEDS ORDERED: VANCOMYCIN HCL 750 MG in NS 250 ML IV ONE (11:00)
[2020-10-18 11:08] LABS: CALCIUM 8.9 mg/dL (8.4-11.0); POTASSIUM 4.8 mmol/L (3.5-5.1)
[2020-10-18] MEDS: INSULIN REGULAR, HUMAN 100 UNITS/ML, 10 ML VIAL (humuLIN R) SUBCUT PRN (11:11)
[2020-10-18 11:14] LABS: ALBUMIN 2.8 g/dL (3.4-4.8); PHOSPHORUS 6.8 mg/dL (2.7-4.5); TOTAL BILIRUBIN 0.5 mg/dL (0.0-1.0)
--- NOTE | 2020-10-18 11:17 | NUR ---
CRITICAL LAB VALUE Critical lab value of Creatinine recieved. MD is aware. Patient is undergoing dialysis
[2020-10-18 11:21] LABS: CREATININE 7.66 mg/dL (0.55-1.30)
[2020-10-18] MEDS ORDERED: EPOETIN ALFA 4,000 UNITS/ML VIAL IVP ONE (12:30)
[2020-10-18 14:57] VITALS: BP_SYST 126
[2020-10-18] MEDS ORDERED: INSNPH7030 SUBCUT ×2 (15:32→15:33)
--- NOTE | 2020-10-18 15:50 | NUR ---
D/C Patient Patient given medication reconciliation form and D/C instructions. Exit Care provided. Patient verbalized understanding. MD discussed with patient the results and treatment provided. Ambulatory with steady gait for discharge to home. Patient in stable condition, ID band removed. IV catheter removed, intact and dressing applied, no active bleeding. All belongings sent with patient.
[2020-10-18] MEDS ORDERED: DOXYCYCLINE HYCLATE 100 MG CAPSULE PO SCH (21:00)
== END 2020-10-18 15:50 | disposition home or self-care (01) | DRG 602 ==
LOC: SED 09:14 → STU 11:36 → SMU 10-16 12:26
PROVIDERS: ADMIT Internal Medicine Cardiovascular Disease; ATTEND Internal Medicine Cardiovascular Disease
PROC: 5A1D70Z Performance of Urinary Filtration, Intermittent, Less than 6 Hours Per Day (ICD-10-PCS; principal; 2020-10-13)
PROC: 5A1D70Z Performance of Urinary Filtration, Intermittent, Less than 6 Hours Per Day (ICD-10-PCS; 2020-10-15)
PROC: 5A1D70Z Performance of Urinary Filtration, Intermittent, Less than 6 Hours Per Day (ICD-10-PCS; 2020-10-18)
DX: L03.311 Cellulitis of abdominal wall (principal); N18.6 End stage renal disease; I50.40 Unspecified combined systolic (congestive) and diastolic (congestive) heart failure; I13.2 Hypertensive heart and chronic kidney disease with heart failure and with stage 5 chronic kidney disease, or end stage renal disease; Z68.41 Body mass index [BMI] 40.0-44.9, adult; Z20.822 Contact with and (suspected) exposure to COVID-19; E03.9 Hypothyroidism, unspecified; E66.01 Morbid (severe) obesity due to excess calories; L98.499 Non-pressure chronic ulcer of skin of other sites with unspecified severity; J45.909 Unspecified asthma, uncomplicated; K59.00 Constipation, unspecified; E11.22 Type 2 diabetes mellitus with diabetic chronic kidney disease; F41.9 Anxiety disorder, unspecified; Z79.4 Long term (current) use of insulin; Z99.2 Dependence on renal dialysis; Z90.710 Acquired absence of both cervix and uterus; Z80.1 Family history of malignant neoplasm of trachea, bronchus and lung; Z98.51 Tubal ligation status
CPT/HCPCS: 36415; 71045; 76376; 80053; 80202; 82962; 83605; 83880; 84100; 85025; 85610-TC; 85730-TC; 87040-TC; 87081; 93005; 96372; 99285; G0378; J0885; J1200; J1815; J1956; J2270; J3370; J3490; J7050; J7060; Q0162; Q9964

== ENCOUNTER 2020-10-28 20:19 | Emergency (ER) | payer OTHER, BC, SELFPAY ==
[~2020-10-28] VITALS: Ht 154.9 cm; Wt 113.4 kg
[~2020-10-28 20:19] MED LIST changes: +AMIT10TA6 PO; +INSNPH7030 SUBCUT; -NITR1PAT84 TD; -ONDA4TAB5 PO
[2020-10-28 20:27] VITALS: BP_SYST 113
[2020-10-28] MEDS ORDERED: DIPHENHYDRAMINE INJ 50 MG/ML VIAL IM ONE (20:30)
[2020-10-28 21:30] VITALS: BP_SYST 116
== END 2020-10-28 21:30 | disposition home or self-care (01) ==
LOC: SED 20:19
DX: L85.3 Xerosis cutis (principal); J45.909 Unspecified asthma, uncomplicated; I10 Essential (primary) hypertension; E11.9 Type 2 diabetes mellitus without complications; Z88.0 Allergy status to penicillin; Z88.1 Allergy status to other antibiotic agents; Z88.2 Allergy status to sulfonamides; Z79.899 Other long term (current) drug therapy; Z88.8 Allergy status to other drugs, medicaments and biological substances
CPT/HCPCS: 96372; 99283; J1200

== ENCOUNTER 2021-01-30 14:59 | Emergency (ER) | payer OTHER, BC ==
[~2021-01-30] VITALS: Ht 160 cm; Wt 77.1 kg
[~2021-01-30 14:59] MED LIST changes: -HYDR-4280 PO; -LORA10TA7 PO
[2021-01-30 15:09] VITALS: BP_SYST 99
[2021-01-30 15:42] VITALS: BP_SYST 99
== END 2021-01-30 15:42 | disposition home or self-care (01) ==
LOC: SED 14:59
DX: Z48.02 Encounter for removal of sutures (principal); I10 Essential (primary) hypertension; E11.9 Type 2 diabetes mellitus without complications; J45.909 Unspecified asthma, uncomplicated; Z88.0 Allergy status to penicillin; Z88.1 Allergy status to other antibiotic agents; Z88.2 Allergy status to sulfonamides; Z88.8 Allergy status to other drugs, medicaments and biological substances; Z79.899 Other long term (current) drug therapy
CPT/HCPCS: 99281

== ENCOUNTER 2021-02-12 18:08 | Emergency (ER) | payer OTHER, BC ==
[~2021-02-12] VITALS: Ht 154.9 cm; Wt 90.7 kg
--- NOTE | 2021-02-12 18:09 | NUR ---
Pt to bed 8 for evaluation. Pt attached to junior sales assistant.
--- NOTE | 2021-02-12 18:10 | NUR ---
Dr. Rodriguez at bedside to assess.
--- NOTE | 2021-02-12 18:11 | NUR ---
Pt AAO and ambulatory, Covid vaccinated, and reporting worsening SOB x 3 days. Pt was dialyzed yesterday but reports that her bilateral lower extremities are swollen worse than normal. Pt reports that today she is experiencing nausea, stomach ache, and reports pain 7/10 currently. Pt has history of ESRD, CHF, and HTN.
[2021-02-12 18:12] VITALS: BP_SYST 129
--- NOTE | 2021-02-12 18:38 | NUR ---
Lab at bedside for blood draw.
--- NOTE | 2021-02-12 18:42 | NUR ---
Portable Xray being done at bedside.
--- NOTE | 2021-02-12 18:42 | NUR ---
EKG completed with results given to Dr. Rodriguez for interpretation.
--- NOTE | 2021-02-12 18:59 | NUR ---
Report given to JYOTSNA Candelaria who will assume care of pt.
[2021-02-12 19:23] LABS: BASOPHILS # (AUTO) 0.1 K/uL (0.0-0.2); BASOPHILS % (AUTO) 0.9 % (0.0-2.0); EOSINOPHILS # (AUTO) 0.5 K/uL (0.0-0.4); EOSINOPHILS % (AUTO) 7.9 % (0.0-4.0); HEMATOCRIT 26.2 % (36-48); HEMOGLOBIN 8.2 g/dL (12.0-16.0); LYMPHOCYTES # (AUTO) 0.7 K/uL (1.0-5.5); LYMPHOCYTES % (AUTO) 12.8 % (20.5-51.5); MEAN CORPUSCULAR HEMOGLOBIN 29 pg (27-31); MEAN CORPUSCULAR HGB CONC 31 % (32-36); MEAN CORPUSCULAR VOLUME 91 fL (79.0-98.0); MONOCYTES # (AUTO) 0.3 K/uL (0.0-1.0); NEUTROPHILS # (AUTO) 4.2 K/uL (1.8-7.7); NEUTROPHILS % (AUTO) 72.4 % (40.0-70.0); PLATELET COUNT (AUTO) 127 K/uL (130-430); RED BLOOD CELL COUNT(AUTO) 2.88 MIL/uL (4.2-6.2); RED CELL DISTRIBUTION WIDTH 19.2 % (9.0-15.0); WHITE BLOOD COUNT (AUTO) 5.8 K/uL (4.8-10.8)
[2021-02-12 19:41] LABS: CALCIUM 11.2 mg/dL (8.4-11.0); CREATININE 4.3 mg/dL (0.55-1.30); POTASSIUM 3.9 mmol/L (3.5-5.1)
[2021-02-12 19:47] LABS: TOTAL BILIRUBIN 0.5 mg/dL (0.0-1.0)
[2021-02-12 19:48] LABS: INR 1.1 (0.8-1.2); PROTHROMBIN TIME 11.6 SECS (9.5-12.5)
--- NOTE | 2021-02-12 20:11 | NUR ---
Dr Arriaza spoke with Dr. Moreno about Troponin result
[2021-02-12] MEDS ORDERED: traMADol HCL HCL 50 MG TABLET (ULTRAM) PO ONE (20:30)
[2021-02-12] MEDS ORDERED: TRAM50TA2 PO (20:33)
[2021-02-12 20:40] VITALS: BP_SYST 132
--- NOTE | 2021-02-12 20:40 | NUR ---
Patient given written and verbal discharge instructions and verbalizes understanding. ER MD discussed with patient the results and treatment provided. Patient in stable condition. ID arm band removed. IV catheter removed intact and dressing applied, no active bleeding. Rx of Tramadol given. Patient educated on pain management and to follow up with PMD. Pain Scale 2/10. Opportunity for questions provided and answered. Medication side effect fact sheet provided.
== END 2021-02-12 20:40 | disposition home or self-care (01) ==
LOC: SED 18:08
DX: I11.0 Hypertensive heart disease with heart failure (principal); I50.9 Heart failure, unspecified; N19 Unspecified kidney failure; E11.9 Type 2 diabetes mellitus without complications; J45.909 Unspecified asthma, uncomplicated; Z88.0 Allergy status to penicillin; Z88.2 Allergy status to sulfonamides; Z88.1 Allergy status to other antibiotic agents; Z88.5 Allergy status to narcotic agent; Z79.4 Long term (current) use of insulin; Z79.82 Long term (current) use of aspirin
CPT/HCPCS: 36415; 71045; 80053; 83880; 84484; 85025; 85610-TC; 85730-TC; 93005; 99285

== ENCOUNTER 2021-04-22 19:50 | Inpatient (IN) | payer OTHER, BC, SELFPAY ==
[~2021-04-22] VITALS: Ht 154.9 cm; Wt 103.4 kg
[~2021-04-22 19:50] MED LIST changes: +TRAM50TA2 PO
--- NOTE | 2021-04-22 20:05 | NUR ---
Placed in room 05 . Placed on cardiac technician, blood pressure machine and pulse oximeter. To gown for exam. Side rails up.
--- NOTE | 2021-04-22 20:08 | NUR ---
Patient BIB by family from home. C/O constipation x 2 days. Patient reported, after dialysis on 04/20/21 , had constipation, nausea, rectal pain. A/O,X4, rectal pain, pain rate 8/10, nausea, place patient on production consultant and pulse ox.
[2021-04-22 20:11] VITALS: BP_SYST 114
[2021-04-22] MEDS ORDERED: NACL 0.9% 1,000 ML IV ONE (20:15)
[2021-04-22] MEDS ORDERED: ONDANSETRON HCL 4 MG/2 ML VIAL IVP ONE (20:15)
[2021-04-22] MEDS ORDERED: MORPHINE 4 MG INJ. 4 MG/ML VIAL IVP ONE (20:15)
--- NOTE | 2021-04-22 20:26 | NUR ---
ER Dr. Dumont at bedside examining patient.
--- NOTE | 2021-04-22 20:50 | NUR ---
Dr. Dumont spoke with patient about CT scan (CT scan down and patient need to transport to another facility to CT scan, BLS will available to transport tomorrow ~ 1300 PM. )
--- NOTE | 2021-04-22 21:03 | NUR ---
Dr. Dumont change Morphine 4 mg IV to IM - Given Morphine 4 mg IM stat.
--- NOTE | 2021-04-22 21:04 | NUR ---
Re-position patient - on canula 3 L/min as request/
--- NOTE | 2021-04-22 21:49 | NUR ---
Blood for labwork drawn from advertising assistant. Patient tolerated well.
--- NOTE | 2021-04-22 22:02 | NUR ---
Patient resting quietly. No acute distress noted. Vital signs within normal range.
[2021-04-22 22:10] LABS: BASOPHILS # (AUTO) 0.1 K/uL (0.0-0.2); BASOPHILS % (AUTO) 0.9 % (0.0-2.0); EOSINOPHILS # (AUTO) 0.1 K/uL (0.0-0.4); EOSINOPHILS % (AUTO) 1.6 % (0.0-4.0); HEMATOCRIT 36.5 % (36-48); HEMOGLOBIN 11.4 g/dL (12.0-16.0); LYMPHOCYTES # (AUTO) 0.7 K/uL (1.0-5.5); LYMPHOCYTES % (AUTO) 10.5 % (20.5-51.5); MEAN CORPUSCULAR HEMOGLOBIN 29 pg (27-31); MEAN CORPUSCULAR HGB CONC 31 % (32-36); MEAN CORPUSCULAR VOLUME 93 fL (79.0-98.0); MONOCYTES # (AUTO) 0.3 K/uL (0.0-1.0); MONOCYTES % (AUTO) 4.5 % (1.7-9.3); NEUTROPHILS # (AUTO) 5.7 K/uL (1.8-7.7); NEUTROPHILS % (AUTO) 82.5 % (40.0-70.0); PLATELET COUNT (AUTO) 145 K/uL (130-430); RED BLOOD CELL COUNT(AUTO) 3.95 MIL/uL (4.2-6.2); RED CELL DISTRIBUTION WIDTH 20.9 % (9.0-15.0); WHITE BLOOD COUNT (AUTO) 6.9 K/uL (4.8-10.8)
[2021-04-22 22:22] LABS: ANION GAP 9 (5-15); CALCIUM 9.2 mg/dL (8.4-11.0); CHLORIDE 96 mmol/L (98-107); CREATININE 5.55 mg/dL (0.55-1.30); GLUCOSE 247 mg/dL (70-99); POTASSIUM 5.3 mmol/L (3.5-5.1); SODIUM SERUM 135 mmol/L (136-145); UREA NITROGEN, BLOOD 53 mg/dL (8-21)
[2021-04-22 22:24] LABS: GFR AFRICAN AMERICAN 10 mL/min (>90)
--- NOTE | 2021-04-22 22:28 | NUR ---
Patient refused IV line.
[2021-04-22 22:31] LABS: ALANINE AMINOTRANSFERASE 33 U/L (12-78); ALBUMIN 3.1 g/dL (3.4-4.8); ASPARTATE AMINOTRANSFERASE 23 U/L (10-37); LIPASE 37 U/L (73-393); TOTAL BILIRUBIN 0.9 mg/dL (0.0-1.0)
--- NOTE | 2021-04-22 22:35 | NUR ---
Dr. Dumont spoke with patient, patient refused Central line.
--- NOTE | 2021-04-22 22:46 | NUR ---
Provided blankets as request.
--- NOTE | 2021-04-22 23:23 | NUR ---
Patient allowed to start IV Line, Attempted to start IV line by JYOTSNA Ni, Not success, Dr. Dumont notified.
[2021-04-22] MEDS ORDERED: KETAMINE 30 MG/3 ML SYRINGE IM ONE (23:30)
[2021-04-22] MEDS ORDERED: KETAMINE 30 MG/3 ML SYRINGE ONE (23:34)
--- NOTE | 2021-04-22 23:47 | NUR ---
Given Ketamin [address] Dumont .
--- NOTE | 2021-04-22 23:51 | NUR ---
Dr. Dumont and In-charge discuss with patient and family about optional to go another hospital near by that have CT scan.
[2021-04-23] VITALS (11 sets, daily range): BP systolic 89–122
--- NOTE | 2021-04-23 00:25 | NUR ---
Patient refused Ketamine (second shot)- Dr. Dumont notified.
--- NOTE | 2021-04-23 00:33 | NUR ---
Dr. Dumont spoke with patient at bedside
[2021-04-23] MEDS ORDERED: LORazepam 2 MG/ML VIAL IM ONE (00:45)
--- NOTE | 2021-04-23 01:20 | NUR ---
Patient is sleeping, no acute distress.
--- NOTE | 2021-04-23 02:34 | NUR ---
Patient resting quietly. No acute distress noted. Vital signs within normal range.
[2021-04-23] MEDS ORDERED: LIDOCAINE 1%, 20 ML MDV 20 ML ONE (03:39)
--- NOTE | 2021-04-23 03:51 | NUR ---
Moved to bed 7.
--- NOTE | 2021-04-23 05:23 | NUR ---
Attempted to place central line and IJ by Dr. Dumont - unsuccessful .
[2021-04-23] MEDS ORDERED: AZITHROMYCIN 250 MG TABLET PO ONE (05:45)
[2021-04-23] MEDS ORDERED: cefTRIAXone 1 GM VIAL IM ONE (05:45)
[2021-04-23] MEDS ORDERED: SODIUM POLYSTYRENE SULFONATE 15 GM/60 ML UDBTL PO ONE (06:00)
--- NOTE | 2021-04-23 06:00 | NUR ---
Patient will transfer to [facility] for CT scan via BLS/EMS.
[2021-04-23] MEDS ORDERED: KETAMINE 30 MG/3 ML SYRINGE IVP ONE (08:45)
--- NOTE | 2021-04-23 10:15 | NUR ---
received pt from ED by RN Michael to rm 122, tele status. pt is aaox4, calm, coherent, and in stable condition. receiving Primary is Dr Moreno and was informed Nephro Dr Hernández is aware. RFA 22g, avf in LUE thrill bruit present. pt has bilateral LE edema +3 pitting. currently resting in bed with eyes closed.
--- NOTE | 2021-04-23 10:26 | NUR ---
Patient will be admitted to care of anyi rao. Admitted to tele unit. Will go to room 122. Belongings list completed. Complete and up to date summary report printed. SBAR report to be given at bedside with opportunity for questions.
--- NOTE | 2021-04-23 10:42 | NUR ---
CONSULT NEPHROLOGY ESRD DR GOETZ,[facility] [phone] D[address] NURSE SPOKE TO [address] GOETZ HE WILL BE IN TO SEE PATIENT
--- NOTE | 2021-04-23 10:58 | NUR ---
Dialysis nurse was at bedside discussing with pt on plan of care. Diesel Engine Mechanic Apprentice is on the way to see pt. Dr Moreno made aware.
[2021-04-23] MEDS ORDERED: ASPIRIN 81 MG TAB.CHEW PO ONE (11:00)
[2021-04-23] MEDS ORDERED: CITALOPRAM HYDROBROMIDE 20 MG TABLET PO ONE (11:00)
[2021-04-23] MEDS ORDERED: calcitrioL 0.25 MCG CAPSULE PO ONE (11:00)
[2021-04-23] MEDS ORDERED: METOPROLOL SUCCINATE 50 MG TAB.SR.24H (TOPROL XL) PO ONE (11:00)
[2021-04-23] MEDS ORDERED: LEVOTHYROXINE SODIUM 0.025 MG TABLET PO ONE (11:00)
[2021-04-23] MEDS ORDERED: ATORVASTATIN 20 MG TABLET PO ONE (11:00)
[2021-04-23] MEDS ORDERED: ASCORBIC ACID 500 MG TABLET PO ONE (11:00)
[2021-04-23] MEDS ORDERED: AMIODARONE HCL 200 MG TABLET PO ONE (11:00)
[2021-04-23] MEDS: traMADol HCL HCL 50 MG TABLET (ULTRAM) PO PRN ×2 (11:45→22:12)
[2021-04-23] MEDS: SEVELAMER CARBONATE 800 MG TABLET PO SCH ×2 (11:48→19:14)
[2021-04-23] MEDS: traZODone HCL 50 MG TABLET (DESYREL) PO PRN ×2 (11:49→22:12)
[2021-04-23] MEDS ORDERED: INSULIN NPH/REGULAR 70-30, 100 UNITS/ML, 10 ML VIAL SUBCUT ONE (12:00)
[2021-04-23 12:29] LABS: BASOPHILS # (AUTO) 0.1 K/uL (0.0-0.2); BASOPHILS % (AUTO) 1.2 % (0.0-2.0); EOSINOPHILS # (AUTO) 0.2 K/uL (0.0-0.4); EOSINOPHILS % (AUTO) 2.6 % (0.0-4.0); HEMOGLOBIN 10.5 g/dL (12.0-16.0); LYMPHOCYTES # (AUTO) 1.6 K/uL (1.0-5.5); MEAN CORPUSCULAR HEMOGLOBIN 29 pg (27-31); MEAN CORPUSCULAR HGB CONC 32 % (32-36); MEAN CORPUSCULAR VOLUME 91 fL (79.0-98.0); MONOCYTES # (AUTO) 0.6 K/uL (0.0-1.0); MONOCYTES % (AUTO) 6.1 % (1.7-9.3); NEUTROPHILS # (AUTO) 6.7 K/uL (1.8-7.7); NEUTROPHILS % (AUTO) 73.1 % (40.0-70.0); PLATELET COUNT (AUTO) 148 K/uL (130-430); RED BLOOD CELL COUNT(AUTO) 3.61 MIL/uL (4.2-6.2); RED CELL DISTRIBUTION WIDTH 20.4 % (9.0-15.0); WHITE BLOOD COUNT (AUTO) 9.2 K/uL (4.8-10.8)
[2021-04-23] MEDS: LEVOFLOXACIN 250 MG/D5W 50 ML IV SCH (12:34)
[2021-04-23 13:02] LABS: ALBUMIN 2.8 g/dL (3.4-4.8); CALCIUM 9.1 mg/dL (8.4-11.0); CREATININE 5.97 mg/dL (0.55-1.30); PHOSPHORUS 8.4 mg/dL (2.7-4.5); POTASSIUM 5.6 mmol/L (3.5-5.1); TOTAL BILIRUBIN 0.7 mg/dL (0.0-1.0)
[2021-04-23 13:05] LABS: TOTAL IRON BIND. CAPACITY 165 ug/dL (250-450)
[2021-04-23] MEDS ORDERED: ALBUMIN HUMAN 25% 100 ML IV ONE (13:45)
[2021-04-23] MEDS: MIDODRINE HCL 5 MG TABLET (PROAMATINE) PO SCH ×2 (14:10→22:06)
--- NOTE | 2021-04-23 14:50 | NUR ---
ADMISSION NOTE Received patient from Tele to ICU via gurney due to low BP during HD. Patient is awake, alert, oriented X 4. Patient oriented to hospital room, call light, toileting, pain management and safety-teach back done. Personal belongings checked and Belongings List documented. Call light within reach.
--- NOTE | 2021-04-23 14:59 | NUR ---
per Dr Moreno, upgrade pt to icu 8 d/t hypotension during dialysis. dialysis nurse informed she was only able to remove 600mL, nephro aware. during dialysis pt was aaox4, agitated and verbally abuse to some staff members. bp range after stopping dialysis to transfering icu is in the range of 83-114. Pt was upgraded for close monitoring, last bp is 92/65. gave report to JYOTSNA Zhu.
[2021-04-23] MEDS ORDERED: COMMUNICATION ORDER XX ONE (16:30)
[2021-04-23] MEDS ORDERED: MINERAL OIL 133 ML ENEMA RC ONE (16:30)
--- NOTE | 2021-04-23 18:00 | NUR ---
DR GOETZ: DR GOETZ AT BEDSIDE UPDATED ON PTS STATUS. PER DRS ORDERS BP WAS TAKEN ON EACH ARM TO COMPARE BP READINGS. BP TAKEN ABOVE AV SHUNT ON LEFT ARM UNDER DR SUPERVISION. THEN THE BPS WERE COMPARED SHOWING A 15 POINT DIFFERENCE IN THE SYSTOLIC PRESSURES, WITH THE LEFT ARM BEING HIGHER. POSSIBLE CIRCULATION ISSUE ON RIGHT ARM.
[2021-04-23] MEDS: INSULIN NPH/REGULAR 70-30, 100 UNITS/ML, 10 ML VIAL SUBCUT SCH (19:14)
--- NOTE | 2021-04-23 20:00 | NUR ---
ENEMAS: FIRST A FLEET MINERAL ENEMA WAS GIVEN TO LITTLE AVAIL. SECONDLY A SOAP SUDS ENEMA WAS ATTEMPTED PROVING TOO PAINFUL FOR PT TO CONTINUE ADMINISTRATION. BOTH ATTEMPTS WERE MADE ON THE BSC WITH ASSISTED TRANSFER FROM NURSING. MEDIUM BM NOTED WITH SEMI-SOLID CONSISTENCY.
[2021-04-23] MEDS ORDERED: amLODIPine BESYLATE 5 MG TABLET PO SCH (21:00)
[2021-04-23] MEDS ORDERED: METOPROLOL SUCCINATE 50 MG TAB.SR.24H (TOPROL XL) PO SCH (21:00)
[2021-04-23] MEDS ORDERED: MIDODRINE HCL 5 MG TABLET (PROAMATINE) ONE (22:01)
[2021-04-23] MEDS ORDERED: AMITRIPTYLINE HCL 10 MG TABLET (ELAVIL) ONE (22:01)
[2021-04-23] MEDS: AMITRIPTYLINE HCL 10 MG TABLET (ELAVIL) PO SCH (22:06)
[2021-04-24] VITALS (20 sets, daily range): BP systolic 74–97
[2021-04-24 06:47] LABS: BASOPHILS # (AUTO) 0.1 K/uL (0.0-0.2); BASOPHILS % (AUTO) 1.1 % (0.0-2.0); EOSINOPHILS # (AUTO) 0.3 K/uL (0.0-0.4); EOSINOPHILS % (AUTO) 4.3 % (0.0-4.0); HEMATOCRIT 33.5 % (36-48); HEMOGLOBIN 10.4 g/dL (12.0-16.0); LYMPHOCYTES # (AUTO) 1.5 K/uL (1.0-5.5); LYMPHOCYTES % (AUTO) 19.4 % (20.5-51.5); MEAN CORPUSCULAR HEMOGLOBIN 29 pg (27-31); MEAN CORPUSCULAR HGB CONC 31 % (32-36); MEAN CORPUSCULAR VOLUME 94 fL (79.0-98.0); MONOCYTES # (AUTO) 0.7 K/uL (0.0-1.0); MONOCYTES % (AUTO) 9.2 % (1.7-9.3); NEUTROPHILS # (AUTO) 5.3 K/uL (1.8-7.7); PLATELET COUNT (AUTO) 117 K/uL (130-430); RED BLOOD CELL COUNT(AUTO) 3.56 MIL/uL (4.2-6.2); RED CELL DISTRIBUTION WIDTH 21.2 % (9.0-15.0)
[2021-04-24] MEDS ORDERED: LEVOTHYROXINE SODIUM 0.025 MG TABLET PO SCH (07:00)
[2021-04-24] MEDS: INSULIN NPH/REGULAR 70-30, 100 UNITS/ML, 10 ML VIAL SUBCUT SCH ×2 (07:00→17:00)
[2021-04-24 07:19] LABS: CALCIUM 8.7 mg/dL (8.4-11.0); CREATININE 5.66 mg/dL (0.55-1.30); POTASSIUM 5.5 mmol/L (3.5-5.1); THYROID STIMULATING HORMONE 21.53 uIu/mL (0.34-4.82); TOTAL BILIRUBIN 0.5 mg/dL (0.0-1.0)
--- NOTE | 2021-04-24 08:41 | NUR ---
BLOOD SUGAR 59, PATIENT EATING BREAKFAST, INSULIN ADMINISTRATION HELD
[2021-04-24] MEDS: ASPIRIN 81 MG TAB.CHEW PO SCH (08:49)
[2021-04-24] MEDS: ATORVASTATIN 20 MG TABLET PO SCH (08:50)
[2021-04-24] MEDS: calcitrioL 0.25 MCG CAPSULE PO SCH (08:50)
[2021-04-24] MEDS: CITALOPRAM HYDROBROMIDE 20 MG TABLET PO SCH (08:50)
[2021-04-24] MEDS: SEVELAMER CARBONATE 800 MG TABLET PO SCH ×3 (08:50→18:06)
[2021-04-24] MEDS: ASCORBIC ACID 500 MG TABLET PO SCH (08:50)
[2021-04-24] MEDS: AMIODARONE HCL 200 MG TABLET PO SCH (09:00)
[2021-04-24] MEDS: MIDODRINE HCL 5 MG TABLET (PROAMATINE) PO SCH ×3 (11:04→22:08)
--- NOTE | 2021-04-24 11:23 | NUR ---
blood sugar 110
--- NOTE | 2021-04-24 11:53 | NUR ---
Nutrition Update Victorino Scale 17 noted. Pt admitted for ESRD, CHF. Diet: regular, 2 gm Na BMI: 41.6 kg/m2 RD to follow per nutrition care standards.
[2021-04-24] MEDS ORDERED: DOCUSATE SODIUM 250 MG CAPSULE PO ONE (12:45)
[2021-04-24] MEDS ORDERED: MINERAL OIL 133 ML ENEMA RC ONE (12:45)
[2021-04-24] MEDS: LEVOFLOXACIN 250 MG/D5W 50 ML IV SCH (13:26)
[2021-04-24] MEDS: traMADol HCL HCL 50 MG TABLET (ULTRAM) PO PRN ×2 (16:32→23:56)
--- NOTE | 2021-04-24 19:46 | NUR ---
ADMIT NOTE Received pt from ICU to the floor with a diagnosis of ESRD. Admission process initiated. patient oriented to pain management, safety and call light-teach back done.
[2021-04-24] MEDS: AMITRIPTYLINE HCL 10 MG TABLET (ELAVIL) PO SCH (22:08)
[2021-04-24] MEDS: DOCUSATE SODIUM 250 MG CAPSULE PO SCH (22:08)
[2021-04-24] MEDS: traZODone HCL 50 MG TABLET (DESYREL) PO PRN (22:08)
[2021-04-25 00:34] VITALS: BP_SYST 105
--- NOTE | 2021-04-25 02:42 | NUR ---
awake Patient is resting in bed, awake, no distress. Symmetrical rise and fall of chest noted. She was repositioned and turned for comfort.
[2021-04-25] MEDS: LEVOTHYROXINE SODIUM 0.05 MG TABLET PO SCH (06:44)
[2021-04-25] MEDS: INSULIN NPH/REGULAR 70-30, 100 UNITS/ML, 10 ML VIAL SUBCUT SCH ×2 (06:53→17:00)
[2021-04-25 07:58] VITALS: BP_SYST 97
--- NOTE | 2021-04-25 08:00 | NUR ---
NOTES PATIENT AAOX 3.4. LUNGS BILATERALLY DIMINISHED AT THE MARCOS. ABDOMEN SOFT AND NON DISTENDED. HAS LEFT ARM AV SHUNT WITH PALPABLE THRILL AND BRUIT. HAS IV ACCESS ON THE RT FOREARM #20. SALINE LOCKED. CALL LIGHTS WITHIN REACH. BED LOW POSITION, ALARMED AND LOCKED. WILL CONTINUE
[2021-04-25 08:15] LABS: ALBUMIN 2.9 g/dL (3.4-4.8); CALCIUM 8.8 mg/dL (8.4-11.0); CREATININE 6.47 mg/dL (0.55-1.30); TOTAL BILIRUBIN 0.7 mg/dL (0.0-1.0)
[2021-04-25 08:33] LABS: POTASSIUM 6.3 mmol/L (3.5-5.1)
--- NOTE | 2021-04-25 08:38 | NUR ---
INFORMED DR MCCANN REGARDING POTASSIUM LEVEL 6.3 NOT HEMOLYZED PER [facility] CALLED. DR MCCANN INFORMED MARY GOYAL TO CALL DR GOETZ
[2021-04-25 08:55] LABS: BASOPHILS # (AUTO) 0.1 K/uL (0.0-0.2); BASOPHILS % (AUTO) 1.2 % (0.0-2.0); EOSINOPHILS # (AUTO) 0.4 K/uL (0.0-0.4); EOSINOPHILS % (AUTO) 4.6 % (0.0-4.0); HEMATOCRIT 37.7 % (36-48); HEMOGLOBIN 11.2 g/dL (12.0-16.0); LYMPHOCYTES # (AUTO) 2.1 K/uL (1.0-5.5); LYMPHOCYTES % (AUTO) 23.1 % (20.5-51.5); MEAN CORPUSCULAR HEMOGLOBIN 29 pg (27-31); MEAN CORPUSCULAR HGB CONC 30 % (32-36); MEAN CORPUSCULAR VOLUME 99 fL (79.0-98.0); MONOCYTES # (AUTO) 0.8 K/uL (0.0-1.0); MONOCYTES % (AUTO) 8.4 % (1.7-9.3); NEUTROPHILS # (AUTO) 5.7 K/uL (1.8-7.7); NEUTROPHILS % (AUTO) 62.7 % (40.0-70.0); PLATELET COUNT (AUTO) 123 K/uL (130-430); RED BLOOD CELL COUNT(AUTO) 3.83 MIL/uL (4.2-6.2); RED CELL DISTRIBUTION WIDTH 21.6 % (9.0-15.0); WHITE BLOOD COUNT (AUTO) 9.1 K/uL (4.8-10.8)
--- NOTE | 2021-04-25 08:55 | NUR ---
DUE MEDS GIVEN
[2021-04-25] MEDS: MIDODRINE HCL 5 MG TABLET (PROAMATINE) PO SCH ×3 (08:57→21:57)
[2021-04-25] MEDS: SEVELAMER CARBONATE 800 MG TABLET PO SCH ×3 (08:57→17:53)
[2021-04-25] MEDS: calcitrioL 0.25 MCG CAPSULE PO SCH (08:57)
[2021-04-25] MEDS: ASCORBIC ACID 500 MG TABLET PO SCH (08:57)
[2021-04-25] MEDS: AMIODARONE HCL 200 MG TABLET PO SCH (08:58)
[2021-04-25] MEDS: ASPIRIN 81 MG TAB.CHEW PO SCH (08:58)
[2021-04-25] MEDS: DOCUSATE SODIUM 250 MG CAPSULE PO SCH ×2 (08:58→21:57)
[2021-04-25] MEDS: CITALOPRAM HYDROBROMIDE 20 MG TABLET PO SCH (08:58)
[2021-04-25] MEDS: ATORVASTATIN 20 MG TABLET PO SCH (08:58)
[2021-04-25] MEDS: METOPROLOL SUCCINATE 25 MG TAB.SR.24H (TOPROL XL) PO SCH (08:59)
--- NOTE | 2021-04-25 09:40 | NUR ---
DR GOETZ CALLED REGARDING POTASSIUM LEVEL OF 6.3. SAID TO CALL DIALYSIS NURSE CLIVE AND TELL THEM TO CALL DR GOETZ RIGHT AWAY.
--- NOTE | 2021-04-25 10:49 | NUR ---
Dietitian Recommendations *Recommend[facility]. *Consider adding ONS by f/u if PO remains poor. *Encourage and document PO intake. Please see Nutritional Assessment for details. HOANG, RD
[2021-04-25] MEDS ORDERED: EPOETIN ALFA 4,000 UNITS/ML VIAL IVP ONE (11:30)
[2021-04-25] MEDS ORDERED: ALBUMIN HUMAN 25% 100 ML IV ONE (11:30)
[2021-04-25 12:00] VITALS: BP_SYST 112
--- NOTE | 2021-04-25 12:00 | NUR ---
PATIENT EATS ONLY 15% OF FOOD. SAID NO APPETITE. WANTS TO SLEEP AND SLEEP. AND TO TALKED TO FAMILY SO OFTEN.
[2021-04-25] MEDS ORDERED: MILK OF MAGNESIA 30 ML UDC PO ONE ×2 (12:30→16:15)
[2021-04-25] MEDS: LEVOFLOXACIN 250 MG/D5W 50 ML IV SCH (16:16)
[2021-04-25] MEDS: traMADol HCL HCL 50 MG TABLET (ULTRAM) PO PRN (16:22)
[2021-04-25 16:45] VITALS: BP_SYST 99
--- NOTE | 2021-04-25 17:51 | NUR ---
PAGED PAGED EDDIE CHANG AT [phone] SPOKE WITH LAYA.
--- NOTE | 2021-04-25 17:54 | NUR ---
AWAITING FOR DR MCCANN TO CALLED BACK BS 87 MG/DL.
--- NOTE | 2021-04-25 18:25 | NUR ---
HUMULIN 70/30 NOT GIVEN ON HOLD LATEST BS 87 MG/DL. NO COVERAGE GIVEN PER DR MCCANN. MAKE SURE PATIENTS IS EATING HER DINNER GOOD.
[2021-04-25 18:27] VITALS: BP_SYST 97
--- NOTE | 2021-04-25 19:48 | NUR ---
OPENING NOTE RECEIVED REPORT FROM DAY SHIFT RN. PATIENT RESTING IN BED ALERT WITH DAUGHTER AT BEDSIDE. NO IV ACCESS AT THIS TIME. RESPIRATIONS EVEN AND UNLABORED. BED IN LOWEST AND LOCKED POSITION. SAFETY PRECAUTIONS IN PLACE. WILL CONTINUE TO MONITOR.
--- NOTE | 2021-04-25 20:30 | NUR ---
PAGED DR. SIOBHAN AWAD PUBLIC UTILITIES SALES REPRESENTATIVE. WILL AWAIT CALL BACK
--- NOTE | 2021-04-25 20:35 | NUR ---
DR. AWAD CALL BACK UPDATED MD ON NO BLOOD SUGAR CHECK, AND NO SLIDING SCALE ORDER FOR PATIENT. PER MD NEW ORDERS PLACED. TO/RB ORDER VERIFIED. WILL CARRY OUT ORDERS.
[2021-04-25] MEDS: AMITRIPTYLINE HCL 10 MG TABLET (ELAVIL) PO SCH (21:57)
[2021-04-25 23:05] VITALS: BP_SYST 91
[2021-04-26] MEDS: traZODone HCL 50 MG TABLET (DESYREL) PO PRN (00:21)
[2021-04-26] MEDS: traMADol HCL HCL 50 MG TABLET (ULTRAM) PO PRN (00:21)
[2021-04-26 00:35] VITALS: BP_SYST 96
--- NOTE | 2021-04-26 01:48 | NUR ---
ROUNDING PATIENT ADJUSTED IN BED FOR COMFORT. PATIENT RESTING IN BED WITH EYES CLOSED. RESPIRATIONS ARE EVEN AND UNLABORED ON NASAL CANULA. BED IN LOWEST AND LOCKED POSITION. SAFETY PRECAUTIONS IN PLACE. WILL CONTINUE TO MONITOR.
[2021-04-26] MEDS: LEVOTHYROXINE SODIUM 0.05 MG TABLET PO SCH (06:08)
[2021-04-26] MEDS: INSULIN NPH/REGULAR 70-30, 100 UNITS/ML, 10 ML VIAL SUBCUT SCH ×2 (06:42→17:00)
--- NOTE | 2021-04-26 06:43 | NUR ---
HIGH ALERT NOTE: Called Dr. MCCANN at 0638. identified within the medical roster to verify physician authenticity. REGARDING DECREASED PT BLOOD SUGAR OF 55. PER MD, NO NEW ORDERS. GIVE PT ORAL SUGAR/JUICES TOLERATED. DIET CONFIRMED TO BE CHANGED FROM REGULAR TO CARDIAC/RENAL. TO/RB.
--- NOTE | 2021-04-26 06:46 | NUR ---
CLOSING NOTE PATIENT IN BED RESTING WITH EYES CLOSED. OFFERED APPLE JUICE. REMOVED PILLOW AND ADJUSTED FOR COMFORT. NEW IV TO BE STARTED. SAFETY PRECAUTIONS IN PLACE. BED IN LOWEST AND LOCKED POSITION. WILL ENDORSE TO DAY RN.
[2021-04-26 07:50] LABS: BASOPHILS # (AUTO) 0.1 K/uL (0.0-0.2); BASOPHILS % (AUTO) 1.7 % (0.0-2.0); EOSINOPHILS # (AUTO) 0.5 K/uL (0.0-0.4); EOSINOPHILS % (AUTO) 6.5 % (0.0-4.0); HEMATOCRIT 33.7 % (36-48); HEMOGLOBIN 10.5 g/dL (12.0-16.0); LYMPHOCYTES # (AUTO) 1.9 K/uL (1.0-5.5); MEAN CORPUSCULAR HEMOGLOBIN 29 pg (27-31); MEAN CORPUSCULAR HGB CONC 31 % (32-36); MEAN CORPUSCULAR VOLUME 94 fL (79.0-98.0); MONOCYTES # (AUTO) 0.7 K/uL (0.0-1.0); MONOCYTES % (AUTO) 8.8 % (1.7-9.3); NEUTROPHILS # (AUTO) 4.2 K/uL (1.8-7.7); PLATELET COUNT (AUTO) 113 K/uL (130-430); RED BLOOD CELL COUNT(AUTO) 3.58 MIL/uL (4.2-6.2); RED CELL DISTRIBUTION WIDTH 21.2 % (9.0-15.0); WHITE BLOOD COUNT (AUTO) 7.5 K/uL (4.8-10.8)
--- NOTE | 2021-04-26 08:00 | NUR ---
NOTES PATIENT AAOX 3-4. LUNGS BILATERALLY CLEAR BUT DIMINISHED AT THE BASES. OBESE. ABDOMEN SOFT AND NON DISTENDED. HAS NO IV ACCESS NOTED. EXPLAINED TO THE PATIENT THE IMPORTANCE OF HAVING IV ACCESS IN CASE OF EMERGENCY SITUATION. SAID I WILL TRY PERHAPS LATER. VITALS SIGNS STABLE AFEBRILE. CALL LIGHTS WITHIN REACH. BED IN LOW POSITION, ALARMED AND LOCKED. WILL CONTINUE
[2021-04-26 08:23] LABS: ALBUMIN 3.1 g/dL (3.4-4.8); CALCIUM 8.9 mg/dL (8.4-11.0); CREATININE 5.52 mg/dL (0.55-1.30); POTASSIUM 5.1 mmol/L (3.5-5.1); TOTAL BILIRUBIN 0.9 mg/dL (0.0-1.0)
[2021-04-26] MEDS ORDERED: MINERAL OIL 30 ML UDC PO ONE (09:00)
[2021-04-26] MEDS: METOPROLOL SUCCINATE 25 MG TAB.SR.24H (TOPROL XL) PO SCH (09:00)
--- NOTE | 2021-04-26 09:00 | NUR ---
DUE MEDS GIVEN ORDERED. TIFF PT CAME PATIENT ABLE TO HAVE FEW STEPS TO WALKED.
[2021-04-26] MEDS: NEPHROVITE, (FOLIC ACID/VITAMIN B COMP W-C 1 TAB) PO SCH (09:21)
[2021-04-26] MEDS: ASCORBIC ACID 500 MG TABLET PO SCH (09:21)
[2021-04-26] MEDS: SEVELAMER CARBONATE 800 MG TABLET PO SCH ×3 (09:21→18:34)
[2021-04-26] MEDS: calcitrioL 0.25 MCG CAPSULE PO SCH (09:22)
[2021-04-26] MEDS: DOCUSATE SODIUM 250 MG CAPSULE PO SCH ×2 (09:22→20:57)
[2021-04-26] MEDS: ASPIRIN 81 MG TAB.CHEW PO SCH (09:22)
[2021-04-26] MEDS: MIDODRINE HCL 5 MG TABLET (PROAMATINE) PO SCH ×3 (09:22→20:58)
[2021-04-26] MEDS: ATORVASTATIN 20 MG TABLET PO SCH (09:23)
[2021-04-26] MEDS: CITALOPRAM HYDROBROMIDE 20 MG TABLET PO SCH (09:23)
[2021-04-26] MEDS: AMIODARONE HCL 200 MG TABLET PO SCH (09:23)
[2021-04-26 09:29] VITALS: BP_SYST 94
--- NOTE | 2021-04-26 09:49 | NUR ---
REFUSING TO HAVE MINERAL OIL PO AND MOM FOR CONSTIPATION, ENCOURAGED TO DRINK IT. IMPORTANCE OF IT. BUT STILL REFUSING.
--- NOTE | 2021-04-26 10:00 | NUR ---
MARY GOYAL TRIED TO PLACED AN IV ACCESS, BUT VERY EDGY AND MOVING A LOT.
--- NOTE | 2021-04-26 10:08 | NUR ---
DR MCCANN INFORMED THAT SHE IS REFUSING TO HAVE IV ACCESS LINE. AND LEVAQUIN IV CHANGED TO PO 250 MG PO DAILY. SO NO IV ACCESS NOTED
--- NOTE | 2021-04-26 11:00 | NUR ---
KENTRELL TRIED TO INSERT AN IV ACCESS BUT PATIENT MOVING A LOT. INFORMED DR MCCANN, JUST LEAVE WITH NO IV ACCESS.
--- NOTE | 2021-04-26 12:00 | NUR ---
TIFF PHYSICAL THERAPIST ABLE TO WALK WITH THE WALKER INSIDE THE ROOM AND ABLE TO SIT DOWN ON THE CHAIR FOR 4 TO 5 HOURS AND RESTING. NO S/S OF DISTRESS NOR PAIN NOTED. ALL OTHER MEDICATIONS TAKEN BUT NOT MOM AND MINERAL OIL
[2021-04-26 12:26] VITALS: BP_SYST 95
[2021-04-26] MEDS: levoFLOXacin 250 MG TABLET PO SCH (12:50)
[2021-04-26] MEDS: INSULIN REGULAR, HUMAN 100 UNITS/ML, 10 ML VIAL (humuLIN R) SUBCUT PRN (13:03)
--- NOTE | 2021-04-26 14:00 | NUR ---
RESTING WHILE SITTING ON THE CHAIR.
--- NOTE | 2021-04-26 17:00 | NUR ---
DR GOETZ CAME AND INFORMED HIM REGARDING REFUSAL OF MEDICATION MOM AND MINERAL OIL BUT STILL ENCOURAGED THE PATIENT FROM TIME TO TIME.
[2021-04-26 17:45] VITALS: BP_SYST 94
[2021-04-26 18:05] VITALS: BP_SYST 94
--- NOTE | 2021-04-26 19:58 | NUR ---
OPENING NOTE RECEIVED REPORT FROM DAY RN. PATIENT SITTING IN BED WITH RESPIRATIONS EVEN 3 L NASAL CANULA. PATIENT COMPLAINS OF CONSTIPATION PAIN. ABDOMEN FIRM AND DISTENDED. WARM COMPRESS APPLIED TO ABDOMEN. PATIENT TOLERATED WELL. PATIENT DOES NOT HAVE AN IV, MD AWARE. PATIENT EDUCATED ON PLAN OF CARE. PATIENT VERBALIZED UNDERSTANDING BED IN LOWEST AND LOCKED POSITION. SAFETY PRECAUTIONS IN PLACE. WILL CONTINUE TO MONITOR.
[2021-04-26 20:05] VITALS: BP_SYST 102
[2021-04-26] MEDS: AMITRIPTYLINE HCL 10 MG TABLET (ELAVIL) PO SCH (20:57)
--- NOTE | 2021-04-27 01:12 | NUR ---
ROUNDING PATIENT REQUESTING PAIN MEDICATIONS AND MEDICATIONS TO AID IN SLEEP. PRN MEDICATIONS ADMINISTERED. PATIENT TOLERATED WELL. PATIENT READJUSTED IN BED WITH PILLOW SUPPORT FOR COMFORT. WILL CONTINUE TO MONITOR.
[2021-04-27] MEDS: traMADol HCL HCL 50 MG TABLET (ULTRAM) PO PRN ×2 (01:19→14:33)
[2021-04-27] MEDS: traZODone HCL 50 MG TABLET (DESYREL) PO PRN (01:19)
[2021-04-27 01:28] VITALS: BP_SYST 103
[2021-04-27] MEDS: INSULIN NPH/REGULAR 70-30, 100 UNITS/ML, 10 ML VIAL SUBCUT SCH ×2 (05:58→17:00)
[2021-04-27] MEDS: LEVOTHYROXINE SODIUM 0.05 MG TABLET PO SCH (05:59)
--- NOTE | 2021-04-27 07:03 | NUR ---
CLOSING NOTE PATIENT LAYING IN BED WITH RESPIRATIONS EVEN ON 3 L NASAL CANULA. PATIENT CONTINUES TO COMPLAIN OF CONSTIPATION PAIN. ABDOMEN FIRM AND DISTENDED. PATIENT DOES NOT HAVE AN IV, MD AWARE. PATIENT COMPLAINS OF LEFT WRIST PAIN. COMPRESSION BANDAGE APPLIED. PATIENT TOLERATED WELL. LEFT RADIAL PULSE PRESENT. SKIN WARM AND DRY. LEFT CAP REFILL LESS THAN THREE SECONDS. ALL NEEDS MET. BED IN LOWEST AND LOCKED POSITION. SAFETY PRECAUTIONS IN PLACE. WILL ENDORSE TO DAY RN.
[2021-04-27] MEDS: METOPROLOL SUCCINATE 25 MG TAB.SR.24H (TOPROL XL) PO SCH (09:00)
--- NOTE | 2021-04-27 09:00 | NUR ---
DUE MEDS GIVEN.
[2021-04-27] MEDS ORDERED: MILK OF MAGNESIA 30 ML UDC PO PRN (09:15)
[2021-04-27] MEDS: NEPHROVITE, (FOLIC ACID/VITAMIN B COMP W-C 1 TAB) PO SCH (09:20)
[2021-04-27] MEDS: ASPIRIN 81 MG TAB.CHEW PO SCH (09:20)
[2021-04-27] MEDS: calcitrioL 0.25 MCG CAPSULE PO SCH (09:20)
[2021-04-27] MEDS: ATORVASTATIN 20 MG TABLET PO SCH (09:20)
[2021-04-27] MEDS: DOCUSATE SODIUM 250 MG CAPSULE PO SCH ×2 (09:21→21:00)
[2021-04-27] MEDS: MIDODRINE HCL 5 MG TABLET (PROAMATINE) PO SCH ×3 (09:21→21:01)
[2021-04-27] MEDS: CITALOPRAM HYDROBROMIDE 20 MG TABLET PO SCH (09:22)
[2021-04-27] MEDS: levoFLOXacin 250 MG TABLET PO SCH (09:22)
[2021-04-27] MEDS: ASCORBIC ACID 500 MG TABLET PO SCH (09:22)
[2021-04-27] MEDS: AMIODARONE HCL 200 MG TABLET PO SCH (09:23)
[2021-04-27] MEDS: SEVELAMER CARBONATE 800 MG TABLET PO SCH ×3 (09:24→17:56)
--- NOTE | 2021-04-27 09:28 | NUR ---
DR MCCANN SEE THE SAID PERHAPS PATIENT WILL GO HOME SUNDAY
--- NOTE | 2021-04-27 09:55 | NUR ---
[facility] nurse will start dialysis today.
[2021-04-27] MEDS ORDERED: ALBUMIN HUMAN 25% 100 ML IV ONE (10:00)
[2021-04-27 12:29] VITALS: BP_SYST 98
--- NOTE | 2021-04-27 13:57 | NUR ---
DIALYSIS DONE AT THIS TIME. BP 100/60 NO PAIN NOR DISTRESS NOTED. 2.5 LITERS OUTPUT
[2021-04-27 16:30] VITALS: BP_SYST 96
[2021-04-27] MEDS ORDERED: SODIUM PHOSPHATE,MONO-DIBASIC 133 ML ENEMA RC ONE (16:45)
[2021-04-27] MEDS ORDERED: EPOETIN ALFA-EPBX 4,000 UNITS/ML VIAL IV ONE (17:00)
--- NOTE | 2021-04-27 17:00 | NUR ---
HIGH ALERT NOTE: Called Dr.SUDAN HA 1700PM back at 1715PM identified within the medical roster to verify physician authenticity.REGARDING EPOGEN 4000 UNITS IV,BUT PATIENT NO IV ACCESS AND SAID GO AHEAD AND GIVE EPOGEN 4000 UNITS SUBCUTENEOUSLY. AND ALSO ALBUMIN 25% IN 100ML IV FOR DIALYSIS
--- NOTE | 2021-04-27 18:00 | NUR ---
ALL OTHER DUE MEDS GIVEN. FAMILY AT THE BEDSIDE. OFFERED TO HAVE FLEET ENEMA, SAID LATER AND INFORMED I WILL COME BACK SOON.
--- NOTE | 2021-04-27 19:00 | NUR ---
ENDORSED TO SYMONE GOYAL
--- NOTE | 2021-04-27 19:00 | NUR ---
PLEASE FOLLOW UP PHOTOS ON THE WOUND PLEASE THANKS.
[2021-04-27 19:44] VITALS: BP_SYST 93
[2021-04-27 20:11] VITALS: BP_SYST 104
[2021-04-27] MEDS: AMITRIPTYLINE HCL 10 MG TABLET (ELAVIL) PO SCH (21:01)
[2021-04-27] MEDS: INSULIN REGULAR, HUMAN 100 UNITS/ML, 10 ML VIAL (humuLIN R) SUBCUT PRN (21:17)
[2021-04-28 00:21] VITALS: BP_SYST 108
[2021-04-28] MEDS: traMADol HCL HCL 50 MG TABLET (ULTRAM) PO PRN ×2 (00:38→23:30)
[2021-04-28] MEDS: traZODone HCL 50 MG TABLET (DESYREL) PO PRN ×2 (00:38→23:30)
[2021-04-28] MEDS: LEVOTHYROXINE SODIUM 0.05 MG TABLET PO SCH (06:31)
[2021-04-28] MEDS: INSULIN NPH/REGULAR 70-30, 100 UNITS/ML, 10 ML VIAL SUBCUT SCH ×2 (06:34→17:51)
--- NOTE | 2021-04-28 07:27 | NUR ---
PHYSICAL THERAPY CO-SIGN The Physical Therapy Progress Notes documented by Mobile Home Laborer have been reviewed. Reviewed/Co-Signed by: Krishna Whelan Documentation Done by: Lowell Cali PTA Addendum: 04/28/21 at 0728 by Krishna Whelan PT Amended: Links added.
[2021-04-28 07:36] VITALS: BP_SYST 99
[2021-04-28 07:39] LABS: BASOPHILS # (AUTO) 0.1 K/uL (0.0-0.2); EOSINOPHILS # (AUTO) 0.4 K/uL (0.0-0.4); EOSINOPHILS % (AUTO) 7.8 % (0.0-4.0); HEMATOCRIT 30.3 % (36-48); HEMOGLOBIN 9.8 g/dL (12.0-16.0); LYMPHOCYTES # (AUTO) 0.9 K/uL (1.0-5.5); LYMPHOCYTES % (AUTO) 16.8 % (20.5-51.5); MEAN CORPUSCULAR HEMOGLOBIN 30 pg (27-31); MEAN CORPUSCULAR HGB CONC 32 % (32-36); MEAN CORPUSCULAR VOLUME 92 fL (79.0-98.0); MONOCYTES # (AUTO) 0.4 K/uL (0.0-1.0); MONOCYTES % (AUTO) 7.7 % (1.7-9.3); NEUTROPHILS # (AUTO) 3.6 K/uL (1.8-7.7); NEUTROPHILS % (AUTO) 66.7 % (40.0-70.0); PLATELET COUNT (AUTO) 93 K/uL (130-430); RED CELL DISTRIBUTION WIDTH 22.2 % (9.0-15.0); WHITE BLOOD COUNT (AUTO) 5.4 K/uL (4.8-10.8)
[2021-04-28 07:59] LABS: ALBUMIN 2.8 g/dL (3.4-4.8); CALCIUM 8.6 mg/dL (8.4-11.0); CREATININE 5.08 mg/dL (0.55-1.30); POTASSIUM 4.4 mmol/L (3.5-5.1); TOTAL BILIRUBIN 0.7 mg/dL (0.0-1.0)
[2021-04-28] MEDS: ASPIRIN 81 MG TAB.CHEW PO SCH (08:45)
[2021-04-28] MEDS: CITALOPRAM HYDROBROMIDE 20 MG TABLET PO SCH (08:45)
[2021-04-28] MEDS: ATORVASTATIN 20 MG TABLET PO SCH (08:45)
[2021-04-28] MEDS: MIDODRINE HCL 5 MG TABLET (PROAMATINE) PO SCH ×3 (08:45→21:55)
[2021-04-28] MEDS: DOCUSATE SODIUM 250 MG CAPSULE PO SCH ×2 (08:45→21:55)
[2021-04-28] MEDS: SEVELAMER CARBONATE 800 MG TABLET PO SCH ×3 (08:45→17:57)
[2021-04-28] MEDS: NEPHROVITE, (FOLIC ACID/VITAMIN B COMP W-C 1 TAB) PO SCH (08:46)
[2021-04-28] MEDS: calcitrioL 0.25 MCG CAPSULE PO SCH (08:46)
[2021-04-28] MEDS: MINERAL OIL 30 ML UDC PO SCH ×2 (08:46→08:56)
[2021-04-28] MEDS: ASCORBIC ACID 500 MG TABLET PO SCH (08:46)
[2021-04-28] MEDS: METOPROLOL SUCCINATE 25 MG TAB.SR.24H (TOPROL XL) PO SCH (08:47)
[2021-04-28] MEDS: AMIODARONE HCL 200 MG TABLET PO SCH (08:51)
[2021-04-28] MEDS ORDERED: CEL20 PO (09:51)
[2021-04-28] MEDS ORDERED: LIP20 PO (09:51)
[2021-04-28] MEDS ORDERED: AMIO200T61 PO (09:51)
[2021-04-28] MEDS ORDERED: LEVO250T43 PO (09:51)
[2021-04-28] MEDS: levoFLOXacin 250 MG TABLET PO SCH (10:22)
[2021-04-28 10:44] VITALS: BP_SYST 97
[2021-04-28 15:09] VITALS: BP_SYST 97
[2021-04-28] MEDS: INSULIN REGULAR, HUMAN 100 UNITS/ML, 10 ML VIAL (humuLIN R) SUBCUT PRN (17:53)
--- NOTE | 2021-04-28 19:00 | NUR ---
PT'S DISCHARGE HELD DUE TO DR GOETZ WANTS PATIENT TO HAVE HD BEFORE GOING HOME. ENDORSED TO NIGHT NURSE.
--- NOTE | 2021-04-28 19:20 | NUR ---
OPENING NOTE RECEIVED REPORT FROM DAY RN. PT SITTING ON CHAIR AT BEDSIDE. NO SIGNS OF DISTRESS NOTED. PT ON 3L O2 VIA NC. CALL LIGHT WITHIN REACH. WILL CONTINUE TO MONITOR.
[2021-04-28 20:03] VITALS: BP_SYST 103
--- NOTE | 2021-04-28 21:51 | NUR ---
HYGIENE CARE DONE BED BATH GIVEN. PT TOLERATED WELL.
[2021-04-28] MEDS: AMITRIPTYLINE HCL 10 MG TABLET (ELAVIL) PO SCH (21:55)
[2021-04-29 00:11] VITALS: BP_SYST 110
--- NOTE | 2021-04-29 02:35 | NUR ---
ROUNDS PT HELPED BACK TO BED. LINENS CHANGED. PT LUCAS GARCIA. WILL CONTINUE TO MONITOR.
[2021-04-29] MEDS: LEVOTHYROXINE SODIUM 0.05 MG TABLET PO SCH (06:28)
[2021-04-29] MEDS: traMADol HCL HCL 50 MG TABLET (ULTRAM) PO PRN (06:28)
[2021-04-29] MEDS: INSULIN NPH/REGULAR 70-30, 100 UNITS/ML, 10 ML VIAL SUBCUT SCH (06:32)
[2021-04-29 08:00] VITALS: BP_SYST 95
--- NOTE | 2021-04-29 08:00 | NUR ---
Opening notes: PT sitting on chair at bedside eating breakfast. No s/s of respiratory or cardiac distress noted. Pt on 3L NC, fall and safety precautions in place, call light within reach, will continue to monitor.
[2021-04-29] MEDS: METOPROLOL SUCCINATE 25 MG TAB.SR.24H (TOPROL XL) PO SCH (09:00)
[2021-04-29] MEDS: ASPIRIN 81 MG TAB.CHEW PO SCH (09:33)
[2021-04-29] MEDS: MINERAL OIL 30 ML UDC PO SCH ×2 (09:34→09:52)
[2021-04-29] MEDS: calcitrioL 0.25 MCG CAPSULE PO SCH (09:34)
[2021-04-29] MEDS: ASCORBIC ACID 500 MG TABLET PO SCH (09:34)
[2021-04-29] MEDS: MIDODRINE HCL 5 MG TABLET (PROAMATINE) PO SCH (09:34)
[2021-04-29] MEDS: DOCUSATE SODIUM 250 MG CAPSULE PO SCH (09:34)
[2021-04-29] MEDS: ATORVASTATIN 20 MG TABLET PO SCH (09:34)
[2021-04-29] MEDS: CITALOPRAM HYDROBROMIDE 20 MG TABLET PO SCH (09:35)
[2021-04-29] MEDS: AMIODARONE HCL 200 MG TABLET PO SCH (09:35)
[2021-04-29] MEDS: SEVELAMER CARBONATE 800 MG TABLET PO SCH (09:36)
[2021-04-29] MEDS: NEPHROVITE, (FOLIC ACID/VITAMIN B COMP W-C 1 TAB) PO SCH (09:55)
[2021-04-29] MEDS: levoFLOXacin 250 MG TABLET PO SCH (09:56)
--- NOTE | 2021-04-29 10:00 | NUR ---
Hemodialysis begin: Moved pt from chair to bed, hemodialysis beginning, VVS, no s/s of distress.
[2021-04-29 10:21] LABS: BASOPHILS % (AUTO) 0.8 % (0.0-2.0); EOSINOPHILS # (AUTO) 0.4 K/uL (0.0-0.4); HEMATOCRIT 29.5 % (36-48); HEMOGLOBIN 9.8 g/dL (12.0-16.0); LYMPHOCYTES # (AUTO) 0.8 K/uL (1.0-5.5); LYMPHOCYTES % (AUTO) 14.9 % (20.5-51.5); MEAN CORPUSCULAR HEMOGLOBIN 30 pg (27-31); MEAN CORPUSCULAR HGB CONC 33 % (32-36); MEAN CORPUSCULAR VOLUME 91 fL (79.0-98.0); MONOCYTES # (AUTO) 0.4 K/uL (0.0-1.0); NEUTROPHILS # (AUTO) 3.8 K/uL (1.8-7.7); NEUTROPHILS % (AUTO) 69.3 % (40.0-70.0); PLATELET COUNT (AUTO) 96 K/uL (130-430); RED BLOOD CELL COUNT(AUTO) 3.25 MIL/uL (4.2-6.2); WHITE BLOOD COUNT (AUTO) 5.5 K/uL (4.8-10.8)
[2021-04-29 10:38] LABS: CALCIUM 8.8 mg/dL (8.4-11.0); CREATININE 6.19 mg/dL (0.55-1.30); POTASSIUM 4.4 mmol/L (3.5-5.1)
[2021-04-29 10:43] LABS: ALBUMIN 2.8 g/dL (3.4-4.8); TOTAL BILIRUBIN 0.7 mg/dL (0.0-1.0)
[2021-04-29 14:17] VITALS: BP_SYST 101
--- NOTE | 2021-04-29 15:00 | NUR ---
D/C Patient Patient given medication reconciliation form and D/C instructions. Exit Care provided. Patient verbalized understanding. MD discussed with patient the results and treatment provided. Ambulatory with steady gait for discharge to home. Patient in stable condition, ID band removed. Rx given in packet. Patient educated on pain management. All belongings sent with patient.
[2021-04-29] MEDS ORDERED: EPOETIN ALFA-EPBX 4,000 UNITS/ML VIAL IV ONE (17:00)
== END 2021-04-29 15:10 | disposition home or self-care (01) | DRG 862 ==
LOC: SED 19:50 → STU 04-23 09:36 → SIC 04-23 14:43 → STU 04-24 19:40
PROVIDERS: ADMIT Internal Medicine Cardiovascular Disease; ATTEND Internal Medicine Cardiovascular Disease
PROC: 5A1D70Z Performance of Urinary Filtration, Intermittent, Less than 6 Hours Per Day (ICD-10-PCS; principal; 2021-04-23)
PROC: 5A1D70Z Performance of Urinary Filtration, Intermittent, Less than 6 Hours Per Day (ICD-10-PCS; 2021-04-25)
PROC: 5A1D70Z Performance of Urinary Filtration, Intermittent, Less than 6 Hours Per Day (ICD-10-PCS; 2021-04-27)
PROC: 5A1D70Z Performance of Urinary Filtration, Intermittent, Less than 6 Hours Per Day (ICD-10-PCS; 2021-04-28)
PROC: 5A1D70Z Performance of Urinary Filtration, Intermittent, Less than 6 Hours Per Day (ICD-10-PCS; 2021-04-29)
DX: T81.49XA Infection following a procedure, other surgical site, initial encounter (principal); N18.6 End stage renal disease; Z68.41 Body mass index [BMI] 40.0-44.9, adult; I13.2 Hypertensive heart and chronic kidney disease with heart failure and with stage 5 chronic kidney disease, or end stage renal disease; I43 Cardiomyopathy in diseases classified elsewhere; I50.40 Unspecified combined systolic (congestive) and diastolic (congestive) heart failure; I42.0 Dilated cardiomyopathy; M86.9 Osteomyelitis, unspecified; D63.8 Anemia in other chronic diseases classified elsewhere; E78.5 Hyperlipidemia, unspecified; E66.01 Morbid (severe) obesity due to excess calories; I35.0 Nonrheumatic aortic (valve) stenosis; I36.1 Nonrheumatic tricuspid (valve) insufficiency; I34.0 Nonrheumatic mitral (valve) insufficiency; E03.9 Hypothyroidism, unspecified; F32.9 Major depressive disorder, single episode, unspecified; G62.9 Polyneuropathy, unspecified; E11.22 Type 2 diabetes mellitus with diabetic chronic kidney disease; E11.51 Type 2 diabetes mellitus with diabetic peripheral angiopathy without gangrene; G89.29 Other chronic pain; I25.10 Atherosclerotic heart disease of native coronary artery without angina pectoris; I48.0 Paroxysmal atrial fibrillation; I49.3 Ventricular premature depolarization; K59.09 Other constipation; I87.8 Other specified disorders of veins; E11.69 Type 2 diabetes mellitus with other specified complication; Z20.822 Contact with and (suspected) exposure to COVID-19; Y83.8 Other surgical procedures as the cause of abnormal reaction of the patient, or of later complication, without mention of misadventure at the time of the procedure; Z88.1 Allergy status to other antibiotic agents; Z88.5 Allergy status to narcotic agent; Z88.0 Allergy status to penicillin; Z88.2 Allergy status to sulfonamides; Z91.09 Other allergy status, other than to drugs and biological substances; Z79.899 Other long term (current) drug therapy; Z91.013 Allergy to seafood; Y92.89 Other specified places as the place of occurrence of the external cause; Z91.15 Patient's noncompliance with renal dialysis; Z95.1 Presence of aortocoronary bypass graft; Z99.2 Dependence on renal dialysis; Z79.890 Hormone replacement therapy; Z79.4 Long term (current) use of insulin; Z90.49 Acquired absence of other specified parts of digestive tract
CPT/HCPCS: 36415; 71045; 71250-TC; 74021; 76376; 80053; 80061; 82962; 83540; 83550; 83690; 83735; 83880; 84100; 84443; 84484; 85025; 87040; 90935; 90937; 93005; 93306; 96372; 96374; 97110-GP; 97163-GP; 99285; G0378; J0885; J1815; J1956; J2001; J2060; J2270; Q0144; Q5106

== ENCOUNTER 2021-06-07 19:08 | Emergency (ER) | payer OTHER, BC ==
[~2021-06-07] VITALS: Ht 154.9 cm; Wt 95.3 kg
[2021-06-07 19:08] VITALS: BP_SYST 90
[~2021-06-07 19:08] MED LIST changes: +AMIO200T61 PO; +CEL20 PO; -DOXY100T2 PO; -INSNPH7030 SUBCUT; +LEVO250T43 PO; -LEVO25TA2 PO; +LIP20 PO; -TOPXL100 PO
[2021-06-07] MEDS ORDERED: traMADol HCL HCL 50 MG TABLET (ULTRAM) PO ONE (21:15)
[2021-06-08 00:28] LABS: BASOPHILS # (AUTO) 0.1 K/uL (0.0-0.2); BASOPHILS % (AUTO) 1.4 % (0.0-2.0); EOSINOPHILS # (AUTO) 0.2 K/uL (0.0-0.4); EOSINOPHILS % (AUTO) 2.9 % (0.0-4.0); HEMATOCRIT 36.1 % (36-48); HEMOGLOBIN 11.3 g/dL (12.0-16.0); LYMPHOCYTES # (AUTO) 1.2 K/uL (1.0-5.5); LYMPHOCYTES % (AUTO) 15.8 % (20.5-51.5); MEAN CORPUSCULAR HEMOGLOBIN 30 pg (27-31); MEAN CORPUSCULAR HGB CONC 31 % (32-36); MEAN CORPUSCULAR VOLUME 97 fL (79.0-98.0); MONOCYTES # (AUTO) 0.5 K/uL (0.0-1.0); MONOCYTES % (AUTO) 6.8 % (1.7-9.3); NEUTROPHILS # (AUTO) 5.5 K/uL (1.8-7.7); NEUTROPHILS % (AUTO) 73.1 % (40.0-70.0); PLATELET COUNT (AUTO) 102 K/uL (130-430); RED BLOOD CELL COUNT(AUTO) 3.73 MIL/uL (4.2-6.2); WHITE BLOOD COUNT (AUTO) 7.6 K/uL (4.8-10.8)
[2021-06-08 00:38] LABS: CALCIUM 9.8 mg/dL (8.4-11.0); CREATININE 5.31 mg/dL (0.55-1.30); POTASSIUM 5.1 mmol/L (3.5-5.1)
[2021-06-08 00:53] LABS: ALBUMIN 3.1 g/dL (3.4-4.8); TOTAL BILIRUBIN 1.2 mg/dL (0.0-1.0)
[2021-06-08 08:39] VITALS: BP_SYST 113
== END 2021-06-08 08:38 | disposition home or self-care (01) ==
LOC: SED 19:08
DX: K59.00 Constipation, unspecified (principal); E11.22 Type 2 diabetes mellitus with diabetic chronic kidney disease; I12.0 Hypertensive chronic kidney disease with stage 5 chronic kidney disease or end stage renal disease; N18.6 End stage renal disease; J45.909 Unspecified asthma, uncomplicated; Z99.2 Dependence on renal dialysis; Z88.0 Allergy status to penicillin; Z88.1 Allergy status to other antibiotic agents; Z88.2 Allergy status to sulfonamides; Z88.5 Allergy status to narcotic agent; Z79.82 Long term (current) use of aspirin; Z79.899 Other long term (current) drug therapy
CPT/HCPCS: 36415; 74018; 80053; 82962; 83690; 85025; 99285

== ENCOUNTER 2021-06-15 20:45 | Inpatient (IN) | payer OTHER, BC, SELFPAY ==
[~2021-06-15] VITALS: Ht 157.5 cm; Wt 110.2 kg
[2021-06-15 20:45] VITALS: BP_SYST 106
[2021-06-15 22:04] LABS: POTASSIUM 5.7 mmol/L (3.5-5.1)
[2021-06-15 22:14] LABS: BASOPHILS # (AUTO) 0.1 K/uL (0.0-0.2); BASOPHILS % (AUTO) 1.3 % (0.0-2.0); EOSINOPHILS # (AUTO) 0.1 K/uL (0.0-0.4); HEMATOCRIT 38.7 % (36-48); HEMOGLOBIN 12.1 g/dL (12.0-16.0); LYMPHOCYTES # (AUTO) 0.8 K/uL (1.0-5.5); LYMPHOCYTES % (AUTO) 10.8 % (20.5-51.5); MEAN CORPUSCULAR HEMOGLOBIN 31 pg (27-31); MEAN CORPUSCULAR HGB CONC 31 % (32-36); MEAN CORPUSCULAR VOLUME 98 fL (79.0-98.0); MONOCYTES # (AUTO) 0.4 K/uL (0.0-1.0); MONOCYTES % (AUTO) 4.9 % (1.7-9.3); NEUTROPHILS # (AUTO) 5.8 K/uL (1.8-7.7); PLATELET COUNT (AUTO) 88 K/uL (130-430); RED BLOOD CELL COUNT(AUTO) 3.95 MIL/uL (4.2-6.2); WHITE BLOOD COUNT (AUTO) 7.2 K/uL (4.8-10.8)
[2021-06-15 22:32] LABS: INR 1.2 (0.8-1.2); PROTHROMBIN TIME 12.5 SECS (9.5-12.5)
[2021-06-15 22:33] LABS: CALCIUM 9.3 mg/dL (8.4-11.0); CREATININE 4.79 mg/dL (0.55-1.30)
[2021-06-15 22:41] LABS: ALBUMIN 2.9 g/dL (3.4-4.8); TOTAL BILIRUBIN 0.9 mg/dL (0.0-1.0)
[2021-06-16] MEDS ORDERED: CALCIUM GLUCONATE 1 GM/10 ML VIAL IVP ONE (01:15)
[2021-06-16] MEDS ORDERED: INSULIN NPH/REGULAR 70-30, 100 UNITS/ML, 10 ML VIAL SUBCUT ONE (02:00)
[2021-06-16] MEDS ORDERED: DEXTROSE 50% JECT 50 ML DISP.SYRIN IVP ONE (02:00)
[2021-06-16] MEDS ORDERED: NITROGLYCERIN 0.4 MG TAB.SUBL SL PRN (04:15)
[2021-06-16] MEDS ORDERED: ASPIRIN 325 MG TABLET PO ONE (04:15)
[2021-06-16] MEDS: MORPHINE 2 MG/ML INJ. SYRINGE IVP PRN ×4 (04:25→21:44)
[2021-06-16 05:40] VITALS: BP_SYST 106
[2021-06-16 07:00] VITALS: BP_SYST 106
[2021-06-16] MEDS ORDERED: traMADol HCL HCL 50 MG TABLET (ULTRAM) PO PRN (07:15)
[2021-06-16 08:19] VITALS: BP_SYST 92
[2021-06-16] MEDS: CARVEDILOL 3.125 MG TABLET (COREG) PO SCH ×2 (09:00→21:19)
[2021-06-16] MEDS: ASPIRIN 81 MG TAB.CHEW PO SCH (09:14)
[2021-06-16] MEDS: CITALOPRAM HYDROBROMIDE 20 MG TABLET PO SCH (09:15)
[2021-06-16] MEDS: FENOFIBRATE NANOCRYSTALLIZED 48 MG TABLET (TRICOR) PO SCH (09:15)
[2021-06-16] MEDS: SEVELAMER CARBONATE 800 MG TABLET PO SCH ×3 (09:15→18:12)
[2021-06-16] MEDS: calcitrioL 0.25 MCG CAPSULE PO SCH (09:15)
[2021-06-16] MEDS: ATORVASTATIN 20 MG TABLET PO SCH (09:15)
[2021-06-16 11:28] VITALS: BP_SYST 106
[2021-06-16] MEDS: AMIODARONE HCL 200 MG TABLET PO SCH (11:54)
[2021-06-16] MEDS ORDERED: DOCUSATE SODIUM 250 MG CAPSULE PO ONE (14:30)
[2021-06-16] MEDS ORDERED: COMMUNICATION ORDER XX ONE (16:15)
[2021-06-16 16:54] VITALS: BP_SYST 99
[2021-06-16] MEDS: INSULIN NPH/REGULAR 70-30, 100 UNITS/ML, 10 ML VIAL SUBCUT SCH (17:22)
[2021-06-16] MEDS: NYSTATIN 15 GM TOPICAL POWDER TP SCH (21:00)
[2021-06-17 03:23] VITALS: BP_SYST 100
[2021-06-17] MEDS: LEVOTHYROXINE SODIUM 0.025 MG TABLET PO SCH (06:35)
[2021-06-17] MEDS: INSULIN NPH/REGULAR 70-30, 100 UNITS/ML, 10 ML VIAL SUBCUT SCH ×2 (06:44→17:00)
[2021-06-17 08:00] VITALS: BP_SYST 98
[2021-06-17] MEDS ORDERED: MILK OF MAGNESIA 30 ML UDC PO ONE (08:30)
[2021-06-17] MEDS: MORPHINE 2 MG/ML INJ. SYRINGE IVP PRN ×3 (08:32→22:22)
[2021-06-17] MEDS: CARVEDILOL 3.125 MG TABLET (COREG) PO SCH ×2 (09:00→21:00)
[2021-06-17] MEDS: MINERAL OIL 30 ML UDC PO SCH (09:00)
[2021-06-17] MEDS: SEVELAMER CARBONATE 800 MG TABLET PO SCH ×3 (09:42→18:30)
[2021-06-17] MEDS: ATORVASTATIN 20 MG TABLET PO SCH (09:42)
[2021-06-17] MEDS: CITALOPRAM HYDROBROMIDE 20 MG TABLET PO SCH (09:43)
[2021-06-17] MEDS: FENOFIBRATE NANOCRYSTALLIZED 48 MG TABLET (TRICOR) PO SCH (09:43)
[2021-06-17] MEDS: ASPIRIN 81 MG TAB.CHEW PO SCH (09:44)
[2021-06-17] MEDS: AMIODARONE HCL 200 MG TABLET PO SCH (09:45)
[2021-06-17] MEDS: DOCUSATE SODIUM 250 MG CAPSULE PO SCH (09:48)
[2021-06-17] MEDS: calcitrioL 0.25 MCG CAPSULE PO SCH (09:48)
[2021-06-17] MEDS: NYSTATIN 15 GM TOPICAL POWDER TP SCH ×2 (09:49→22:27)
[2021-06-17] MEDS ORDERED: MINERAL OIL 133 ML ENEMA RC ONE (11:00)
[2021-06-17] MEDS ORDERED: LIDOCAINE 1% 10 MG/ML, 50 ML MDV INJ ONE (11:30)
[2021-06-17 11:44] LABS: BASOPHILS # (AUTO) 0.1 K/uL (0.0-0.2); BASOPHILS % (AUTO) 1.1 % (0.0-2.0); EOSINOPHILS # (AUTO) 0.2 K/uL (0.0-0.4); EOSINOPHILS % (AUTO) 2.6 % (0.0-4.0); HEMATOCRIT 39.1 % (36-48); LYMPHOCYTES # (AUTO) 1.5 K/uL (1.0-5.5); LYMPHOCYTES % (AUTO) 15.8 % (20.5-51.5); MEAN CORPUSCULAR HEMOGLOBIN 30 pg (27-31); MEAN CORPUSCULAR HGB CONC 31 % (32-36); MEAN CORPUSCULAR VOLUME 98 fL (79.0-98.0); MONOCYTES # (AUTO) 0.6 K/uL (0.0-1.0); MONOCYTES % (AUTO) 6.2 % (1.7-9.3); NEUTROPHILS % (AUTO) 74.3 % (40.0-70.0); PLATELET COUNT (AUTO) 149 K/uL (130-430); RED BLOOD CELL COUNT(AUTO) 3.98 MIL/uL (4.2-6.2); RED CELL DISTRIBUTION WIDTH 22.6 % (9.0-15.0); WHITE BLOOD COUNT (AUTO) 9.4 K/uL (4.8-10.8)
[2021-06-17] MEDS ORDERED: ALBUMIN HUMAN 25% 100 ML IV ONE (11:45)
[2021-06-17 12:14] LABS: ALBUMIN 2.7 g/dL (3.4-4.8); CALCIUM 9.4 mg/dL (8.4-11.0); CREATININE 5.94 mg/dL (0.55-1.30); FREE T4 (FREE THYROXINE) 1.1 ng/dl (0.8-1.5); THYROID STIMULATING HORMONE 31.68 uIu/mL (0.36-3.74); TOTAL BILIRUBIN 1.1 mg/dL (0.0-1.0)
[2021-06-17 12:18] LABS: POTASSIUM 6.1 mmol/L (3.5-5.1)
[2021-06-17 12:32] VITALS: BP_SYST 100
[2021-06-17] MEDS ORDERED: LIDOCAINE 1%, 20 ML MDV 20 ML ONE (13:41)
[2021-06-17 16:54] VITALS: BP_SYST 99
[2021-06-17] MEDS ORDERED: EPOETIN ALFA-EPBX 4,000 UNITS/ML VIAL IV ONE (17:00)
[2021-06-17] MEDS ORDERED: ENOXAPARIN SODIUM 30 MG/0.3 ML SYRINGE SUBCUT ONE (17:30)
[2021-06-17] MEDS ORDERED: HYDROcodone/ACETAMIN 5-325 MG TAB (NORCO/ VICODIN) PO PRN (18:30)
[2021-06-18 00:28] VITALS: BP_SYST 100
[2021-06-18] MEDS: traZODone HCL 50 MG TABLET (DESYREL) PO PRN (04:14)
[2021-06-18] MEDS: MORPHINE 2 MG/ML INJ. SYRINGE IVP PRN ×3 (04:43→12:08)
[2021-06-18] MEDS: LEVOTHYROXINE SODIUM 0.025 MG TABLET PO SCH (06:46)
[2021-06-18] MEDS: INSULIN NPH/REGULAR 70-30, 100 UNITS/ML, 10 ML VIAL SUBCUT SCH ×2 (06:46→17:18)
[2021-06-18 07:08] LABS: BASOPHILS # (AUTO) 0.1 K/uL (0.0-0.2); EOSINOPHILS # (AUTO) 0.3 K/uL (0.0-0.4); EOSINOPHILS % (AUTO) 3.7 % (0.0-4.0); HEMOGLOBIN 11.8 g/dL (12.0-16.0); LYMPHOCYTES % (AUTO) 14.1 % (20.5-51.5); MEAN CORPUSCULAR HEMOGLOBIN 31 pg (27-31); MEAN CORPUSCULAR HGB CONC 31 % (32-36); MEAN CORPUSCULAR VOLUME 98 fL (79.0-98.0); MONOCYTES # (AUTO) 0.5 K/uL (0.0-1.0); MONOCYTES % (AUTO) 6.6 % (1.7-9.3); NEUTROPHILS # (AUTO) 5.5 K/uL (1.8-7.7); NEUTROPHILS % (AUTO) 74.6 % (40.0-70.0); PLATELET COUNT (AUTO) 112 K/uL (130-430); RED BLOOD CELL COUNT(AUTO) 3.89 MIL/uL (4.2-6.2); RED CELL DISTRIBUTION WIDTH 22.9 % (9.0-15.0); WHITE BLOOD COUNT (AUTO) 7.4 K/uL (4.8-10.8)
[2021-06-18 07:25] LABS: ALBUMIN 2.8 g/dL (3.4-4.8); CALCIUM 9.6 mg/dL (8.4-11.0); CREATININE 5.37 mg/dL (0.55-1.30); TOTAL BILIRUBIN 1.2 mg/dL (0.0-1.0)
[2021-06-18 07:46] LABS: POTASSIUM 5.8 mmol/L (3.5-5.1)
[2021-06-18 08:00] VITALS: BP_SYST 105
[2021-06-18] MEDS: SEVELAMER CARBONATE 800 MG TABLET PO SCH ×3 (08:25→18:27)
[2021-06-18] MEDS: FENOFIBRATE NANOCRYSTALLIZED 48 MG TABLET (TRICOR) PO SCH (08:25)
[2021-06-18] MEDS: calcitrioL 0.25 MCG CAPSULE PO SCH (08:26)
[2021-06-18] MEDS: ATORVASTATIN 20 MG TABLET PO SCH (08:27)
[2021-06-18] MEDS: MINERAL OIL 30 ML UDC PO SCH (08:27)
[2021-06-18] MEDS: CITALOPRAM HYDROBROMIDE 20 MG TABLET PO SCH (08:29)
[2021-06-18] MEDS: ASPIRIN 81 MG TAB.CHEW PO SCH (08:29)
[2021-06-18] MEDS: AMIODARONE HCL 200 MG TABLET PO SCH (08:30)
[2021-06-18] MEDS: CARVEDILOL 3.125 MG TABLET (COREG) PO SCH ×2 (08:30→20:41)
[2021-06-18] MEDS: NYSTATIN 15 GM TOPICAL POWDER TP SCH ×2 (08:31→20:41)
[2021-06-18] MEDS: ENOXAPARIN SODIUM 30 MG/0.3 ML SYRINGE SUBCUT SCH (08:31)
[2021-06-18] MEDS: DOCUSATE SODIUM 250 MG CAPSULE PO SCH (08:35)
[2021-06-18] MEDS ORDERED: SODIUM POLYSTYRENE SULFONATE 15 GM/60 ML UDBTL RC ONE (09:45)
[2021-06-18 10:41] LABS: THYROID STIMULATING HORMONE 20.87 uIu/mL (0.36-3.74)
[2021-06-18 11:50] VITALS: BP_SYST 94
[2021-06-18 16:00] VITALS: BP_SYST 96
[2021-06-18 20:00] VITALS: BP_SYST 106
[2021-06-19 01:24] VITALS: BP_SYST 107
[2021-06-19] MEDS: MORPHINE 2 MG/ML INJ. SYRINGE IVP PRN (03:18)
[2021-06-19] MEDS: LEVOTHYROXINE SODIUM 0.025 MG TABLET PO SCH (06:14)
[2021-06-19] MEDS: INSULIN NPH/REGULAR 70-30, 100 UNITS/ML, 10 ML VIAL SUBCUT SCH ×2 (06:22→17:15)
[2021-06-19 08:40] VITALS: BP_SYST 99
[2021-06-19] MEDS: CARVEDILOL 3.125 MG TABLET (COREG) PO SCH ×2 (09:00→22:14)
[2021-06-19] MEDS: MINERAL OIL 30 ML UDC PO SCH (09:00)
[2021-06-19] MEDS: ATORVASTATIN 20 MG TABLET PO SCH (09:56)
[2021-06-19] MEDS: SEVELAMER CARBONATE 800 MG TABLET PO SCH ×2 (09:56→12:30)
[2021-06-19] MEDS: DOCUSATE SODIUM 250 MG CAPSULE PO SCH (09:57)
[2021-06-19] MEDS: CITALOPRAM HYDROBROMIDE 20 MG TABLET PO SCH (09:57)
[2021-06-19] MEDS: calcitrioL 0.25 MCG CAPSULE PO SCH (09:57)
[2021-06-19] MEDS: ASPIRIN 81 MG TAB.CHEW PO SCH (09:58)
[2021-06-19] MEDS: FENOFIBRATE NANOCRYSTALLIZED 48 MG TABLET (TRICOR) PO SCH (09:58)
[2021-06-19] MEDS: AMIODARONE HCL 200 MG TABLET PO SCH (10:03)
[2021-06-19] MEDS: NYSTATIN 15 GM TOPICAL POWDER TP SCH ×2 (10:04→22:15)
[2021-06-19] MEDS: ENOXAPARIN SODIUM 30 MG/0.3 ML SYRINGE SUBCUT SCH (10:08)
[2021-06-19 11:09] LABS: ALBUMIN 2.7 g/dL (3.4-4.8); CALCIUM 8.8 mg/dL (8.4-11.0); CREATININE 6.03 mg/dL (0.55-1.30); POTASSIUM 5.6 mmol/L (3.5-5.1)
[2021-06-19 12:01] LABS: BASOPHILS # (AUTO) 0.1 K/uL (0.0-0.2); BASOPHILS % (AUTO) 2.4 % (0.0-2.0); EOSINOPHILS # (AUTO) 0.3 K/uL (0.0-0.4); EOSINOPHILS % (AUTO) 4.5 % (0.0-4.0); HEMATOCRIT 38.2 % (36-48); HEMOGLOBIN 11.6 g/dL (12.0-16.0); LYMPHOCYTES % (AUTO) 15.3 % (20.5-51.5); MEAN CORPUSCULAR HEMOGLOBIN 30 pg (27-31); MEAN CORPUSCULAR HGB CONC 31 % (32-36); MEAN CORPUSCULAR VOLUME 99 fL (79.0-98.0); MONOCYTES # (AUTO) 0.4 K/uL (0.0-1.0); MONOCYTES % (AUTO) 6.3 % (1.7-9.3); NEUTROPHILS # (AUTO) 4.5 K/uL (1.8-7.7); NEUTROPHILS % (AUTO) 71.5 % (40.0-70.0); PLATELET COUNT (AUTO) 134 K/uL (130-430); RED BLOOD CELL COUNT(AUTO) 3.85 MIL/uL (4.2-6.2); RED CELL DISTRIBUTION WIDTH 22.1 % (9.0-15.0); WHITE BLOOD COUNT (AUTO) 6.3 K/uL (4.8-10.8)
[2021-06-19 12:15] VITALS: BP_SYST 91
[2021-06-19] MEDS ORDERED: ALBUMIN HUMAN 25% 100 ML IV ONE (12:45)
[2021-06-19 12:52] LABS: CALCIUM 8.6 mg/dL (8.4-11.0); CREATININE 4.31 mg/dL (0.55-1.30); POTASSIUM 4.4 mmol/L (3.5-5.1)
[2021-06-19 13:06] LABS: PHOSPHORUS 5.8 mg/dL (2.7-4.5); THYROID STIMULATING HORMONE 25.67 uIu/mL (0.36-3.74)
[2021-06-19 16:00] VITALS: BP_SYST 91
[2021-06-19] MEDS ORDERED: MINERAL OIL 133 ML ENEMA RC ONE (16:15)
[2021-06-19 21:30] VITALS: BP_SYST 118
[2021-06-19] MEDS: traZODone HCL 50 MG TABLET (DESYREL) PO PRN (22:44)
[2021-06-20 01:16] VITALS: BP_SYST 107
[2021-06-20 07:08] LABS: BASOPHILS # (AUTO) 0.1 K/uL (0.0-0.2); BASOPHILS % (AUTO) 0.9 % (0.0-2.0); EOSINOPHILS # (AUTO) 0.3 K/uL (0.0-0.4); EOSINOPHILS % (AUTO) 4.4 % (0.0-4.0); HEMATOCRIT 33.6 % (36-48); HEMOGLOBIN 10.4 g/dL (12.0-16.0); LYMPHOCYTES % (AUTO) 16.7 % (20.5-51.5); MEAN CORPUSCULAR HEMOGLOBIN 31 pg (27-31); MEAN CORPUSCULAR HGB CONC 31 % (32-36); MEAN CORPUSCULAR VOLUME 99 fL (79.0-98.0); MONOCYTES # (AUTO) 0.5 K/uL (0.0-1.0); MONOCYTES % (AUTO) 7.6 % (1.7-9.3); NEUTROPHILS # (AUTO) 4.2 K/uL (1.8-7.7); NEUTROPHILS % (AUTO) 70.4 % (40.0-70.0); PLATELET COUNT (AUTO) 100 K/uL (130-430); RED CELL DISTRIBUTION WIDTH 21.8 % (9.0-15.0); WHITE BLOOD COUNT (AUTO) 5.9 K/uL (4.8-10.8)
[2021-06-20] MEDS: LEVOTHYROXINE SODIUM 0.025 MG TABLET PO SCH (07:21)
[2021-06-20] MEDS: INSULIN NPH/REGULAR 70-30, 100 UNITS/ML, 10 ML VIAL SUBCUT SCH ×2 (07:25→18:32)
[2021-06-20 07:40] LABS: ALBUMIN 2.5 g/dL (3.4-4.8); CALCIUM 8.3 mg/dL (8.4-11.0); CREATININE 5.84 mg/dL (0.55-1.30); POTASSIUM 5.7 mmol/L (3.5-5.1); TOTAL BILIRUBIN 0.8 mg/dL (0.0-1.0)
[2021-06-20 08:00] VITALS: BP_SYST 104
[2021-06-20] MEDS ORDERED: MINERAL OIL 133 ML ENEMA RC ONE (08:15)
[2021-06-20] MEDS: SEVELAMER CARBONATE 800 MG TABLET PO SCH ×4 (08:30→18:30)
[2021-06-20] MEDS: MINERAL OIL 30 ML UDC PO SCH ×2 (09:00→10:34)
[2021-06-20] MEDS ORDERED: SODIUM POLYSTYRENE SULFONATE 15 GM/60 ML UDBTL PO ONE (10:00)
[2021-06-20] MEDS: ENOXAPARIN SODIUM 30 MG/0.3 ML SYRINGE SUBCUT SCH (10:31)
[2021-06-20] MEDS: ASPIRIN 81 MG TAB.CHEW PO SCH (10:33)
[2021-06-20] MEDS: calcitrioL 0.25 MCG CAPSULE PO SCH (10:33)
[2021-06-20] MEDS: CITALOPRAM HYDROBROMIDE 20 MG TABLET PO SCH (10:33)
[2021-06-20] MEDS: DOCUSATE SODIUM 250 MG CAPSULE PO SCH (10:33)
[2021-06-20] MEDS: ATORVASTATIN 20 MG TABLET PO SCH (10:34)
[2021-06-20] MEDS: FENOFIBRATE NANOCRYSTALLIZED 48 MG TABLET (TRICOR) PO SCH (10:34)
[2021-06-20] MEDS: NYSTATIN 15 GM TOPICAL POWDER TP SCH ×2 (10:35→20:31)
[2021-06-20] MEDS: AMIODARONE HCL 200 MG TABLET PO SCH (10:44)
[2021-06-20] MEDS: CARVEDILOL 3.125 MG TABLET (COREG) PO SCH ×2 (10:45→20:30)
[2021-06-20] MEDS: MORPHINE 2 MG/ML INJ. SYRINGE IVP PRN (10:54)
[2021-06-20 13:08] VITALS: BP_SYST 104
[2021-06-20 18:06] VITALS: BP_SYST 91
[2021-06-20 20:00] VITALS: BP_SYST 85
[2021-06-21] VITALS: BP_SYST 6
[2021-06-21] MEDS: traZODone HCL 50 MG TABLET (DESYREL) PO PRN ×2 (02:40→23:40)
[2021-06-21] MEDS: LEVOTHYROXINE SODIUM 0.05 MG TABLET PO SCH (06:37)
[2021-06-21] MEDS: INSULIN NPH/REGULAR 70-30, 100 UNITS/ML, 10 ML VIAL SUBCUT SCH ×2 (06:39→17:00)
[2021-06-21 08:00] VITALS: BP_SYST 82
[2021-06-21] MEDS: calcitrioL 0.25 MCG CAPSULE PO SCH (08:13)
[2021-06-21] MEDS: AMIODARONE HCL 200 MG TABLET PO SCH (08:17)
[2021-06-21] MEDS: FENOFIBRATE NANOCRYSTALLIZED 48 MG TABLET (TRICOR) PO SCH (08:18)
[2021-06-21] MEDS: MINERAL OIL 30 ML UDC PO SCH (08:18)
[2021-06-21] MEDS: CARVEDILOL 3.125 MG TABLET (COREG) PO SCH ×2 (08:19→20:49)
[2021-06-21] MEDS: ATORVASTATIN 20 MG TABLET PO SCH (08:19)
[2021-06-21] MEDS: CITALOPRAM HYDROBROMIDE 20 MG TABLET PO SCH (08:20)
[2021-06-21] MEDS: NYSTATIN 15 GM TOPICAL POWDER TP SCH ×2 (08:20→20:48)
[2021-06-21] MEDS: DOCUSATE SODIUM 250 MG CAPSULE PO SCH (08:20)
[2021-06-21] MEDS: ASPIRIN 81 MG TAB.CHEW PO SCH (08:20)
[2021-06-21] MEDS: ENOXAPARIN SODIUM 30 MG/0.3 ML SYRINGE SUBCUT SCH (08:21)
[2021-06-21] MEDS: SEVELAMER CARBONATE 800 MG TABLET PO SCH ×3 (08:24→17:55)
[2021-06-21] MEDS ORDERED: ALBUMIN HUMAN 25% 100 ML IV ONE (08:45)
[2021-06-21 10:19] LABS: BASOPHILS % (AUTO) 0.7 % (0.0-2.0); EOSINOPHILS # (AUTO) 0.2 K/uL (0.0-0.4); HEMATOCRIT 35.2 % (36-48); HEMOGLOBIN 10.8 g/dL (12.0-16.0); LYMPHOCYTES # (AUTO) 0.9 K/uL (1.0-5.5); LYMPHOCYTES % (AUTO) 12.8 % (20.5-51.5); MEAN CORPUSCULAR HEMOGLOBIN 30 pg (27-31); MEAN CORPUSCULAR HGB CONC 31 % (32-36); MEAN CORPUSCULAR VOLUME 98 fL (79.0-98.0); MONOCYTES # (AUTO) 0.4 K/uL (0.0-1.0); MONOCYTES % (AUTO) 5.8 % (1.7-9.3); NEUTROPHILS # (AUTO) 5.5 K/uL (1.8-7.7); NEUTROPHILS % (AUTO) 77.7 % (40.0-70.0); PLATELET COUNT (AUTO) 118 K/uL (130-430); RED CELL DISTRIBUTION WIDTH 21.7 % (9.0-15.0); WHITE BLOOD COUNT (AUTO) 7.1 K/uL (4.8-10.8)
[2021-06-21 10:22] LABS: CALCIUM 8.4 mg/dL (8.4-11.0); CREATININE 6.69 mg/dL (0.55-1.30)
[2021-06-21 10:37] LABS: ALBUMIN 2.6 g/dL (3.4-4.8); THYROID STIMULATING HORMONE 28.04 uIu/mL (0.36-3.74); TOTAL BILIRUBIN 0.8 mg/dL (0.0-1.0)
[2021-06-21 10:40] LABS: POTASSIUM 6.3 mmol/L (3.5-5.1)
[2021-06-21 12:00] VITALS: BP_SYST 82
[2021-06-21] MEDS: MORPHINE 2 MG/ML INJ. SYRINGE IVP PRN (13:33)
[2021-06-21 16:00] VITALS: BP_SYST 92
[2021-06-21 20:20] VITALS: BP_SYST 91
[2021-06-22] VITALS: BP_SYST 92
[2021-06-22 04:39] VITALS: BP_SYST 96
[2021-06-22] MEDS: LEVOTHYROXINE SODIUM 0.05 MG TABLET PO SCH (06:37)
[2021-06-22] MEDS: INSULIN NPH/REGULAR 70-30, 100 UNITS/ML, 10 ML VIAL SUBCUT SCH ×2 (06:43→17:00)
[2021-06-22 07:45] LABS: BASOPHILS % (AUTO) 0.7 % (0.0-2.0); EOSINOPHILS # (AUTO) 0.3 K/uL (0.0-0.4); EOSINOPHILS % (AUTO) 4.1 % (0.0-4.0); HEMATOCRIT 35.6 % (36-48); LYMPHOCYTES % (AUTO) 14.5 % (20.5-51.5); MEAN CORPUSCULAR HEMOGLOBIN 31 pg (27-31); MEAN CORPUSCULAR HGB CONC 31 % (32-36); MONOCYTES # (AUTO) 0.5 K/uL (0.0-1.0); MONOCYTES % (AUTO) 6.6 % (1.7-9.3); NEUTROPHILS # (AUTO) 5.3 K/uL (1.8-7.7); NEUTROPHILS % (AUTO) 74.1 % (40.0-70.0); PLATELET COUNT (AUTO) 92 K/uL (130-430); RED BLOOD CELL COUNT(AUTO) 3.57 MIL/uL (4.2-6.2); RED CELL DISTRIBUTION WIDTH 21.8 % (9.0-15.0); WHITE BLOOD COUNT (AUTO) 7.1 K/uL (4.8-10.8)
[2021-06-22 07:53] LABS: ALBUMIN 2.9 g/dL (3.4-4.8); CALCIUM 8.5 mg/dL (8.4-11.0); CREATININE 5.49 mg/dL (0.55-1.30); POTASSIUM 5.5 mmol/L (3.5-5.1); TOTAL BILIRUBIN 0.7 mg/dL (0.0-1.0)
[2021-06-22] MEDS: MORPHINE 2 MG/ML INJ. SYRINGE IVP PRN (08:23)
[2021-06-22 08:35] LABS: MEAN CORPUSCULAR VOLUME 100 fL (79.0-98.0)
[2021-06-22] MEDS: MINERAL OIL 30 ML UDC PO SCH ×2 (09:00→09:08)
[2021-06-22] MEDS: AMIODARONE HCL 200 MG TABLET PO SCH (09:00)
[2021-06-22] MEDS: CARVEDILOL 3.125 MG TABLET (COREG) PO SCH ×2 (09:00→20:47)
[2021-06-22] MEDS: ASPIRIN 81 MG TAB.CHEW PO SCH (09:07)
[2021-06-22] MEDS: DOCUSATE SODIUM 250 MG CAPSULE PO SCH (09:07)
[2021-06-22] MEDS: CITALOPRAM HYDROBROMIDE 20 MG TABLET PO SCH (09:07)
[2021-06-22] MEDS: SEVELAMER CARBONATE 800 MG TABLET PO SCH ×3 (09:07→18:41)
[2021-06-22] MEDS: FENOFIBRATE NANOCRYSTALLIZED 48 MG TABLET (TRICOR) PO SCH (09:08)
[2021-06-22] MEDS: calcitrioL 0.25 MCG CAPSULE PO SCH (09:08)
[2021-06-22] MEDS: ATORVASTATIN 20 MG TABLET PO SCH (09:08)
[2021-06-22] MEDS: NYSTATIN 15 GM TOPICAL POWDER TP SCH ×2 (09:11→20:46)
[2021-06-22] MEDS: ENOXAPARIN SODIUM 30 MG/0.3 ML SYRINGE SUBCUT SCH (09:12)
[2021-06-22] MEDS ORDERED: ALBUMIN HUMAN 25% 100 ML IV ONE (10:00)
[2021-06-22 12:48] VITALS: BP_SYST 95
[2021-06-22 16:00] VITALS: BP_SYST 97
[2021-06-22] MEDS ORDERED: [UNRECOGNIZED DRUG - OTHER] IV ONE (18:30)
[2021-06-22] MEDS ORDERED: NORMAL SALINE IV ONE (18:30)
[2021-06-22 20:00] VITALS: BP_SYST 107
[2021-06-22] MEDS ORDERED: TIGECYCLINE 50 MG in NS 100 ML IV SCH (21:00)
[2021-06-22] MEDS: traZODone HCL 50 MG TABLET (DESYREL) PO PRN (23:20)
[2021-06-22] MEDS ORDERED: ACETAMINOPHEN 325 MG TABLET PO PRN (23:45)
[2021-06-22] MEDS ORDERED: SIMETHICONE 80 MG TAB.CHEW PO PRN (23:45)
[2021-06-23 00:50] VITALS: BP_SYST 92
[2021-06-23] MEDS: LEVOTHYROXINE SODIUM 0.05 MG TABLET PO SCH (06:20)
[2021-06-23] MEDS: INSULIN NPH/REGULAR 70-30, 100 UNITS/ML, 10 ML VIAL SUBCUT SCH ×2 (06:21→17:26)
[2021-06-23] MEDS: MORPHINE 2 MG/ML INJ. SYRINGE IVP PRN (07:55)
[2021-06-23 08:00] VITALS: BP_SYST 101
[2021-06-23] MEDS: calcitrioL 0.25 MCG CAPSULE PO SCH (08:54)
[2021-06-23] MEDS: MINERAL OIL 30 ML UDC PO SCH (08:54)
[2021-06-23] MEDS: FENOFIBRATE NANOCRYSTALLIZED 48 MG TABLET (TRICOR) PO SCH (08:55)
[2021-06-23] MEDS: CITALOPRAM HYDROBROMIDE 20 MG TABLET PO SCH (08:55)
[2021-06-23] MEDS: ASPIRIN 81 MG TAB.CHEW PO SCH (08:55)
[2021-06-23] MEDS: DOCUSATE SODIUM 250 MG CAPSULE PO SCH (08:55)
[2021-06-23] MEDS: SEVELAMER CARBONATE 800 MG TABLET PO SCH ×3 (08:55→17:22)
[2021-06-23] MEDS: ATORVASTATIN 20 MG TABLET PO SCH (08:56)
[2021-06-23] MEDS: AMIODARONE HCL 200 MG TABLET PO SCH (08:56)
[2021-06-23] MEDS: CARVEDILOL 3.125 MG TABLET (COREG) PO SCH ×2 (08:57→21:35)
[2021-06-23] MEDS: TIGECYCLINE 50 MG in NS 100 ML IV SCH ×2 (08:57→21:52)
[2021-06-23] MEDS: NYSTATIN 15 GM TOPICAL POWDER TP SCH ×2 (08:58→21:35)
[2021-06-23] MEDS: ENOXAPARIN SODIUM 30 MG/0.3 ML SYRINGE SUBCUT SCH (09:06)
[2021-06-23 12:00] VITALS: BP_SYST 89
[2021-06-23 13:04] VITALS: BP_SYST 86
[2021-06-23 18:14] VITALS: BP_SYST 93
[2021-06-23 20:58] VITALS: BP_SYST 96
[2021-06-23] MEDS: traZODone HCL 50 MG TABLET (DESYREL) PO PRN (22:16)
[2021-06-24 00:50] VITALS: BP_SYST 93
[2021-06-24] MEDS: MORPHINE 2 MG/ML INJ. SYRINGE IVP PRN (02:40)
[2021-06-24] MEDS: INSULIN NPH/REGULAR 70-30, 100 UNITS/ML, 10 ML VIAL SUBCUT SCH ×2 (07:00→09:50)
[2021-06-24] MEDS: LEVOTHYROXINE SODIUM 0.05 MG TABLET PO SCH (07:17)
[2021-06-24 08:00] VITALS: BP_SYST 82
[2021-06-24 08:29] LABS: BASOPHILS # (AUTO) 0.1 K/uL (0.0-0.2); BASOPHILS % (AUTO) 1.1 % (0.0-2.0); EOSINOPHILS # (AUTO) 0.2 K/uL (0.0-0.4); EOSINOPHILS % (AUTO) 2.6 % (0.0-4.0); HEMATOCRIT 36.8 % (36-48); HEMOGLOBIN 11.4 g/dL (12.0-16.0); LYMPHOCYTES # (AUTO) 1.3 K/uL (1.0-5.5); LYMPHOCYTES % (AUTO) 16.8 % (20.5-51.5); MEAN CORPUSCULAR HEMOGLOBIN 31 pg (27-31); MEAN CORPUSCULAR HGB CONC 31 % (32-36); MEAN CORPUSCULAR VOLUME 99 fL (79.0-98.0); MONOCYTES # (AUTO) 0.5 K/uL (0.0-1.0); MONOCYTES % (AUTO) 7.3 % (1.7-9.3); NEUTROPHILS # (AUTO) 5.4 K/uL (1.8-7.7); NEUTROPHILS % (AUTO) 72.2 % (40.0-70.0); PLATELET COUNT (AUTO) 103 K/uL (130-430); RED BLOOD CELL COUNT(AUTO) 3.72 MIL/uL (4.2-6.2); RED CELL DISTRIBUTION WIDTH 20.8 % (9.0-15.0); WHITE BLOOD COUNT (AUTO) 7.5 K/uL (4.8-10.8)
[2021-06-24 08:54] LABS: CALCIUM 8.7 mg/dL (8.4-11.0); CREATININE 5.8 mg/dL (0.55-1.30); TOTAL BILIRUBIN 0.9 mg/dL (0.0-1.0)
[2021-06-24 08:58] LABS: POTASSIUM 6.3 mmol/L (3.5-5.1)
[2021-06-24] MEDS: CARVEDILOL 3.125 MG TABLET (COREG) PO SCH ×2 (09:00→21:06)
[2021-06-24] MEDS ORDERED: MINERAL OIL 133 ML ENEMA RC ONE (09:15)
[2021-06-24] MEDS ORDERED: COMMUNICATION ORDER XX ONE (09:15)
[2021-06-24] MEDS: MINERAL OIL 30 ML UDC PO SCH (09:29)
[2021-06-24] MEDS: TIGECYCLINE 50 MG in NS 100 ML IV SCH ×2 (09:30→23:56)
[2021-06-24] MEDS: DOCUSATE SODIUM 250 MG CAPSULE PO SCH (09:30)
[2021-06-24] MEDS: calcitrioL 0.25 MCG CAPSULE PO SCH (09:43)
[2021-06-24] MEDS: ATORVASTATIN 20 MG TABLET PO SCH (09:43)
[2021-06-24] MEDS: AMIODARONE HCL 200 MG TABLET PO SCH (09:45)
[2021-06-24] MEDS: ASPIRIN 81 MG TAB.CHEW PO SCH (09:45)
[2021-06-24] MEDS: SEVELAMER CARBONATE 800 MG TABLET PO SCH ×3 (09:46→17:36)
[2021-06-24] MEDS: ENOXAPARIN SODIUM 30 MG/0.3 ML SYRINGE SUBCUT SCH (09:48)
[2021-06-24] MEDS: CITALOPRAM HYDROBROMIDE 20 MG TABLET PO SCH (09:54)
[2021-06-24] MEDS: NYSTATIN 15 GM TOPICAL POWDER TP SCH ×2 (09:55→21:07)
[2021-06-24] MEDS: FENOFIBRATE NANOCRYSTALLIZED 48 MG TABLET (TRICOR) PO SCH (09:55)
[2021-06-24] MEDS ORDERED: ALBUMIN HUMAN 25% 100 ML IV ONE (10:30)
[2021-06-24 10:52] LABS: BASOPHILS # (AUTO) 0.1 K/uL (0.0-0.2); BASOPHILS % (AUTO) 1.2 % (0.0-2.0); EOSINOPHILS # (AUTO) 0.2 K/uL (0.0-0.4); HEMATOCRIT 36.9 % (36-48); HEMOGLOBIN 11.4 g/dL (12.0-16.0); LYMPHOCYTES # (AUTO) 1.3 K/uL (1.0-5.5); LYMPHOCYTES % (AUTO) 16.7 % (20.5-51.5); MEAN CORPUSCULAR HEMOGLOBIN 30 pg (27-31); MEAN CORPUSCULAR HGB CONC 31 % (32-36); MEAN CORPUSCULAR VOLUME 99 fL (79.0-98.0); MONOCYTES # (AUTO) 0.7 K/uL (0.0-1.0); MONOCYTES % (AUTO) 8.2 % (1.7-9.3); NEUTROPHILS # (AUTO) 5.8 K/uL (1.8-7.7); NEUTROPHILS % (AUTO) 71.9 % (40.0-70.0); PLATELET COUNT (AUTO) 101 K/uL (130-430); RED BLOOD CELL COUNT(AUTO) 3.74 MIL/uL (4.2-6.2)
[2021-06-24 12:00] VITALS: BP_SYST 88
[2021-06-24] MEDS ORDERED: DEXTROSE 50% JECT 50 ML DISP.SYRIN IVP ONE (13:00)
[2021-06-24] MEDS ORDERED: DEXTROSE 50% JECT 50 ML DISP.SYRIN ONE (13:08)
[2021-06-24 16:00] VITALS: BP_SYST 92
[2021-06-24 20:25] VITALS: BP_SYST 132
[2021-06-24] MEDS ORDERED: TIGECYCLINE IV ONE (23:02)
[2021-06-24] MEDS: traZODone HCL 50 MG TABLET (DESYREL) PO PRN (23:54)
[2021-06-25 07:05] VITALS: BP_SYST 108
[2021-06-25 07:21] LABS: BASOPHILS # (AUTO) 0.1 K/uL (0.0-0.2); BASOPHILS % (AUTO) 1.1 % (0.0-2.0); EOSINOPHILS # (AUTO) 0.2 K/uL (0.0-0.4); EOSINOPHILS % (AUTO) 4.1 % (0.0-4.0); HEMATOCRIT 33.9 % (36-48); HEMOGLOBIN 10.7 g/dL (12.0-16.0); LYMPHOCYTES # (AUTO) 1.1 K/uL (1.0-5.5); MEAN CORPUSCULAR HEMOGLOBIN 31 pg (27-31); MEAN CORPUSCULAR HGB CONC 32 % (32-36); MEAN CORPUSCULAR VOLUME 97 fL (79.0-98.0); MONOCYTES # (AUTO) 0.5 K/uL (0.0-1.0); MONOCYTES % (AUTO) 7.7 % (1.7-9.3); NEUTROPHILS # (AUTO) 4.1 K/uL (1.8-7.7); NEUTROPHILS % (AUTO) 69.1 % (40.0-70.0); PLATELET COUNT (AUTO) 83 K/uL (130-430); RED CELL DISTRIBUTION WIDTH 20.4 % (9.0-15.0)
[2021-06-25] MEDS: INSULIN NPH/REGULAR 70-30, 100 UNITS/ML, 10 ML VIAL SUBCUT SCH ×2 (07:28→17:00)
[2021-06-25] MEDS: LEVOTHYROXINE SODIUM 0.05 MG TABLET PO SCH (07:29)
[2021-06-25 08:26] LABS: CALCIUM 8.5 mg/dL (8.4-11.0); CREATININE 5.36 mg/dL (0.55-1.30); POTASSIUM 5.6 mmol/L (3.5-5.1); TOTAL BILIRUBIN 0.7 mg/dL (0.0-1.0)
[2021-06-25 09:00] VITALS: BP_SYST 110
[2021-06-25] MEDS: ASPIRIN 81 MG TAB.CHEW PO SCH (09:00)
[2021-06-25] MEDS: FENOFIBRATE NANOCRYSTALLIZED 48 MG TABLET (TRICOR) PO SCH (09:00)
[2021-06-25] MEDS: SEVELAMER CARBONATE 800 MG TABLET PO SCH ×3 (09:00→17:38)
[2021-06-25] MEDS: MINERAL OIL 30 ML UDC PO SCH ×2 (09:00→09:03)
[2021-06-25] MEDS: CARVEDILOL 3.125 MG TABLET (COREG) PO SCH ×2 (09:01→20:27)
[2021-06-25] MEDS: DOCUSATE SODIUM 250 MG CAPSULE PO SCH (09:01)
[2021-06-25] MEDS: CITALOPRAM HYDROBROMIDE 20 MG TABLET PO SCH (09:02)
[2021-06-25] MEDS: AMIODARONE HCL 200 MG TABLET PO SCH (09:02)
[2021-06-25] MEDS: ATORVASTATIN 20 MG TABLET PO SCH (09:02)
[2021-06-25] MEDS: calcitrioL 0.25 MCG CAPSULE PO SCH (09:03)
[2021-06-25] MEDS: ENOXAPARIN SODIUM 30 MG/0.3 ML SYRINGE SUBCUT SCH (09:04)
[2021-06-25] MEDS: NYSTATIN 15 GM TOPICAL POWDER TP SCH ×2 (09:07→20:32)
[2021-06-25] MEDS: TIGECYCLINE 50 MG in NS 100 ML IV SCH ×2 (09:08→20:27)
[2021-06-25] MEDS: traMADol HCL HCL 50 MG TABLET (ULTRAM) PO SCH ×2 (11:24→17:37)
[2021-06-25 12:15] VITALS: BP_SYST 98
[2021-06-25] MEDS ORDERED: SODIUM POLYSTYRENE SULFONATE 15 GM/60 ML UDBTL PO ONE ×2 (13:15)
[2021-06-25] MEDS ORDERED: SORBITOL 70% SOLUTION, 30 ML UDBTL PO ONE (13:15)
[2021-06-25 16:15] VITALS: BP_SYST 102
[2021-06-25 20:15] VITALS: BP_SYST 92
[2021-06-26 01:00] VITALS: BP_SYST 95
[2021-06-26] MEDS: traZODone HCL 50 MG TABLET (DESYREL) PO PRN (01:15)
[2021-06-26] MEDS: traMADol HCL HCL 50 MG TABLET (ULTRAM) PO SCH ×5 (05:41→23:58)
[2021-06-26] MEDS: LEVOTHYROXINE SODIUM 0.05 MG TABLET PO SCH (06:31)
[2021-06-26] MEDS: INSULIN NPH/REGULAR 70-30, 100 UNITS/ML, 10 ML VIAL SUBCUT SCH ×2 (06:58→17:00)
[2021-06-26 08:15] VITALS: BP_SYST 100
[2021-06-26] MEDS: TIGECYCLINE 50 MG in NS 100 ML IV SCH ×2 (09:00→21:43)
[2021-06-26] MEDS: MINERAL OIL 30 ML UDC PO SCH (09:00)
[2021-06-26] MEDS: AMIODARONE HCL 200 MG TABLET PO SCH (09:57)
[2021-06-26] MEDS: calcitrioL 0.25 MCG CAPSULE PO SCH (09:57)
[2021-06-26] MEDS: CITALOPRAM HYDROBROMIDE 20 MG TABLET PO SCH (09:57)
[2021-06-26] MEDS: ATORVASTATIN 20 MG TABLET PO SCH (09:57)
[2021-06-26] MEDS: CARVEDILOL 3.125 MG TABLET (COREG) PO SCH ×2 (09:57→21:00)
[2021-06-26] MEDS: ASPIRIN 81 MG TAB.CHEW PO SCH (09:58)
[2021-06-26] MEDS: DOCUSATE SODIUM 250 MG CAPSULE PO SCH (09:58)
[2021-06-26] MEDS: ENOXAPARIN SODIUM 30 MG/0.3 ML SYRINGE SUBCUT SCH (09:59)
[2021-06-26] MEDS: FENOFIBRATE NANOCRYSTALLIZED 48 MG TABLET (TRICOR) PO SCH (10:05)
[2021-06-26] MEDS: SEVELAMER CARBONATE 800 MG TABLET PO SCH ×3 (10:05→17:42)
[2021-06-26] MEDS: NYSTATIN 15 GM TOPICAL POWDER TP SCH ×2 (10:06→21:44)
[2021-06-26 12:00] VITALS: BP_SYST 98
[2021-06-26 16:00] VITALS: BP_SYST 99
[2021-06-26 20:10] VITALS: BP_SYST 90
[2021-06-27 00:33] VITALS: BP_SYST 92
[2021-06-27] MEDS: traMADol HCL HCL 50 MG TABLET (ULTRAM) PO SCH ×4 (06:52→23:17)
[2021-06-27] MEDS: LEVOTHYROXINE SODIUM 0.05 MG TABLET PO SCH (06:52)
[2021-06-27] MEDS: DOCUSATE SODIUM 250 MG CAPSULE PO PRN (06:52)
[2021-06-27] MEDS: INSULIN NPH/REGULAR 70-30, 100 UNITS/ML, 10 ML VIAL SUBCUT SCH ×2 (06:54→18:50)
[2021-06-27 08:00] VITALS: BP_SYST 110
[2021-06-27] MEDS: MINERAL OIL 30 ML UDC PO SCH ×2 (09:00→10:44)
[2021-06-27] MEDS: TIGECYCLINE 50 MG in NS 100 ML IV SCH ×2 (10:36→21:27)
[2021-06-27] MEDS: ENOXAPARIN SODIUM 30 MG/0.3 ML SYRINGE SUBCUT SCH (10:37)
[2021-06-27] MEDS: DOCUSATE SODIUM 250 MG CAPSULE PO SCH (10:41)
[2021-06-27] MEDS: FENOFIBRATE NANOCRYSTALLIZED 48 MG TABLET (TRICOR) PO SCH (10:41)
[2021-06-27] MEDS: calcitrioL 0.25 MCG CAPSULE PO SCH (10:42)
[2021-06-27] MEDS: CITALOPRAM HYDROBROMIDE 20 MG TABLET PO SCH (10:42)
[2021-06-27] MEDS: ATORVASTATIN 20 MG TABLET PO SCH (10:43)
[2021-06-27] MEDS: ASPIRIN 81 MG TAB.CHEW PO SCH (10:43)
[2021-06-27] MEDS: CARVEDILOL 3.125 MG TABLET (COREG) PO SCH ×2 (10:44→21:00)
[2021-06-27] MEDS: AMIODARONE HCL 200 MG TABLET PO SCH (10:45)
[2021-06-27] MEDS: BISACODYL 10 MG/SUPPOSITORY RC PRN (10:45)
[2021-06-27] MEDS: SEVELAMER CARBONATE 800 MG TABLET PO SCH ×4 (10:45→18:48)
[2021-06-27] MEDS: NYSTATIN 15 GM TOPICAL POWDER TP SCH ×2 (11:02→21:28)
[2021-06-27 11:31] VITALS: BP_SYST 97
[2021-06-27] MEDS ORDERED: ALBUMIN HUMAN 25% 100 ML IV ONE (12:45)
[2021-06-27 13:59] LABS: BASOPHILS # (AUTO) 0.1 K/uL (0.0-0.2); EOSINOPHILS # (AUTO) 0.3 K/uL (0.0-0.4); EOSINOPHILS % (AUTO) 4.6 % (0.0-4.0); HEMATOCRIT 34.4 % (36-48); HEMOGLOBIN 10.8 g/dL (12.0-16.0); LYMPHOCYTES # (AUTO) 1.1 K/uL (1.0-5.5); LYMPHOCYTES % (AUTO) 18.7 % (20.5-51.5); MEAN CORPUSCULAR HEMOGLOBIN 31 pg (27-31); MEAN CORPUSCULAR HGB CONC 32 % (32-36); MEAN CORPUSCULAR VOLUME 97 fL (79.0-98.0); MONOCYTES # (AUTO) 0.5 K/uL (0.0-1.0); MONOCYTES % (AUTO) 8.9 % (1.7-9.3); NEUTROPHILS % (AUTO) 66.8 % (40.0-70.0); PLATELET COUNT (AUTO) 117 K/uL (130-430); RED BLOOD CELL COUNT(AUTO) 3.55 MIL/uL (4.2-6.2); RED CELL DISTRIBUTION WIDTH 20.5 % (9.0-15.0)
[2021-06-27 14:11] LABS: CALCIUM 8.3 mg/dL (8.4-11.0); CREATININE 6.93 mg/dL (0.55-1.30)
[2021-06-27 14:22] LABS: ALBUMIN 2.8 g/dL (3.4-4.8); PHOSPHORUS 9.7 mg/dL (2.7-4.5); TOTAL BILIRUBIN 0.8 mg/dL (0.0-1.0)
[2021-06-27 15:05] LABS: POTASSIUM 6.9 mmol/L (3.5-5.1)
[2021-06-27 16:50] VITALS: BP_SYST 100
[2021-06-27 20:00] VITALS: BP_SYST 87
[2021-06-28] VITALS: BP_SYST 95
[2021-06-28] MEDS: traMADol HCL HCL 50 MG TABLET (ULTRAM) PO SCH ×4 (05:52→23:55)
[2021-06-28] MEDS: LEVOTHYROXINE SODIUM 0.05 MG TABLET PO SCH (06:25)
[2021-06-28] MEDS: INSULIN NPH/REGULAR 70-30, 100 UNITS/ML, 10 ML VIAL SUBCUT SCH ×2 (06:49→16:38)
[2021-06-28] MEDS ORDERED: GLUCOSE (DEXTROSE) ORAL GEL -Adults PO PRN (07:00)
[2021-06-28 08:00] VITALS: BP_SYST 92
[2021-06-28] MEDS: CITALOPRAM HYDROBROMIDE 20 MG TABLET PO SCH (08:49)
[2021-06-28] MEDS: DOCUSATE SODIUM 250 MG CAPSULE PO SCH (08:49)
[2021-06-28] MEDS: ASPIRIN 81 MG TAB.CHEW PO SCH (08:49)
[2021-06-28] MEDS: ATORVASTATIN 20 MG TABLET PO SCH (08:49)
[2021-06-28] MEDS: CARVEDILOL 3.125 MG TABLET (COREG) PO SCH ×2 (08:50→21:00)
[2021-06-28] MEDS: FENOFIBRATE NANOCRYSTALLIZED 48 MG TABLET (TRICOR) PO SCH (08:50)
[2021-06-28] MEDS: calcitrioL 0.25 MCG CAPSULE PO SCH (08:50)
[2021-06-28] MEDS: ENOXAPARIN SODIUM 30 MG/0.3 ML SYRINGE SUBCUT SCH (08:53)
[2021-06-28] MEDS: MINERAL OIL 30 ML UDC PO SCH (08:54)
[2021-06-28] MEDS: NYSTATIN 15 GM TOPICAL POWDER TP SCH ×2 (08:54→21:39)
[2021-06-28] MEDS: AMIODARONE HCL 200 MG TABLET PO SCH (09:00)
[2021-06-28] MEDS ORDERED: ALBUMIN HUMAN 25% 100 ML IV ONE (09:37)
[2021-06-28] MEDS: TIGECYCLINE 50 MG in NS 100 ML IV SCH ×2 (10:59→21:38)
[2021-06-28] MEDS: SEVELAMER CARBONATE 800 MG TABLET PO SCH ×3 (11:02→17:40)
[2021-06-28 12:37] VITALS: BP_SYST 100
[2021-06-28 16:40] VITALS: BP_SYST 98
[2021-06-28 20:00] VITALS: BP_SYST 91
[2021-06-28] MEDS: BISACODYL 10 MG/SUPPOSITORY RC PRN (20:46)
[2021-06-28] MEDS: DOCUSATE SODIUM 250 MG CAPSULE PO PRN (21:14)
[2021-06-29 02:02] VITALS: BP_SYST 89
[2021-06-29] MEDS: LEVOTHYROXINE SODIUM 0.05 MG TABLET PO SCH (06:12)
[2021-06-29] MEDS: traMADol HCL HCL 50 MG TABLET (ULTRAM) PO SCH ×3 (06:12→17:30)
[2021-06-29] MEDS: INSULIN NPH/REGULAR 70-30, 100 UNITS/ML, 10 ML VIAL SUBCUT SCH ×2 (06:15→17:25)
[2021-06-29 08:29] VITALS: BP_SYST 90
[2021-06-29 08:32] LABS: BASOPHILS # (AUTO) 0.1 K/uL (0.0-0.2); EOSINOPHILS # (AUTO) 0.3 K/uL (0.0-0.4); HEMATOCRIT 37.5 % (36-48); HEMOGLOBIN 11.5 g/dL (12.0-16.0); LYMPHOCYTES # (AUTO) 1.2 K/uL (1.0-5.5); MEAN CORPUSCULAR HGB CONC 31 % (32-36); MONOCYTES # (AUTO) 0.6 K/uL (0.0-1.0)
[2021-06-29 08:53] LABS: BASOPHILS % (AUTO) 1.4 % (0.0-2.0); EOSINOPHILS % (AUTO) 4.4 % (0.0-4.0); LYMPHOCYTES % (AUTO) 18.9 % (20.5-51.5); MEAN CORPUSCULAR HEMOGLOBIN 30 pg (27-31); MEAN CORPUSCULAR VOLUME 98 fL (79.0-98.0); MONOCYTES % (AUTO) 9.2 % (1.7-9.3); NEUTROPHILS # (AUTO) 4.4 K/uL (1.8-7.7); NEUTROPHILS % (AUTO) 66.1 % (40.0-70.0); PLATELET COUNT (AUTO) 119 K/uL (130-430); RED BLOOD CELL COUNT(AUTO) 3.82 MIL/uL (4.2-6.2); RED CELL DISTRIBUTION WIDTH 20.7 % (9.0-15.0)
[2021-06-29 08:55] LABS: WHITE BLOOD COUNT (AUTO) 6.6 K/uL (4.8-10.8)
[2021-06-29] MEDS: FENOFIBRATE NANOCRYSTALLIZED 48 MG TABLET (TRICOR) PO SCH (09:11)
[2021-06-29] MEDS: MINERAL OIL 30 ML UDC PO SCH (09:11)
[2021-06-29] MEDS: ASPIRIN 81 MG TAB.CHEW PO SCH (09:11)
[2021-06-29] MEDS: calcitrioL 0.25 MCG CAPSULE PO SCH (09:12)
[2021-06-29] MEDS: DOCUSATE SODIUM 250 MG CAPSULE PO SCH (09:12)
[2021-06-29] MEDS: ATORVASTATIN 20 MG TABLET PO SCH (09:13)
[2021-06-29] MEDS: CARVEDILOL 3.125 MG TABLET (COREG) PO SCH ×2 (09:13→21:00)
[2021-06-29] MEDS: CITALOPRAM HYDROBROMIDE 20 MG TABLET PO SCH (09:14)
[2021-06-29] MEDS: ENOXAPARIN SODIUM 30 MG/0.3 ML SYRINGE SUBCUT SCH (09:17)
[2021-06-29] MEDS: TIGECYCLINE 50 MG in NS 100 ML IV SCH (09:19)
[2021-06-29] MEDS: AMIODARONE HCL 200 MG TABLET PO SCH (09:20)
[2021-06-29] MEDS: NYSTATIN 15 GM TOPICAL POWDER TP SCH ×2 (09:27→21:15)
[2021-06-29] MEDS: SEVELAMER CARBONATE 800 MG TABLET PO SCH ×3 (09:27→17:32)
[2021-06-29 11:30] VITALS: BP_SYST 93
[2021-06-29 14:22] LABS: CALCIUM 8.3 mg/dL (8.4-11.0); CREATININE 5.61 mg/dL (0.55-1.30); PHOSPHORUS 8.1 mg/dL (2.7-4.5); POTASSIUM 5.4 mmol/L (3.5-5.1); TOTAL BILIRUBIN 1.1 mg/dL (0.0-1.0)
[2021-06-29 16:01] VITALS: BP_SYST 83
[2021-06-29 16:15] VITALS: BP_SYST 90
[2021-06-29 20:00] VITALS: BP_SYST 81
[2021-06-29] MEDS: DOXYCYCLINE HYCLATE 100 MG CAPSULE PO SCH (21:14)
[2021-06-29] MEDS ORDERED: GLUCOSE (DEXTROSE) ORAL GEL -Adults PO PRN (22:00)
[2021-06-29] MEDS ORDERED: D5W 1,000 ML IV PRN (22:00)
[2021-06-29] MEDS: DEXTROSE 50% JECT 50 ML DISP.SYRIN IVP PRN (22:44)
[2021-06-30] VITALS: BP_SYST 99
[2021-06-30 04:16] VITALS: BP_SYST 96
[2021-06-30] MEDS: DEXTROSE 50% JECT 50 ML DISP.SYRIN IVP PRN ×2 (06:07→06:15)
[2021-06-30] MEDS ORDERED: COMMUNICATION ORDER XX PRN (06:30)
[2021-06-30] MEDS ORDERED: D10W 1,000 ML IV SCH (06:30)
[2021-06-30] MEDS: INSULIN NPH/REGULAR 70-30, 100 UNITS/ML, 10 ML VIAL SUBCUT SCH ×2 (07:00→17:00)
[2021-06-30] MEDS: LEVOTHYROXINE SODIUM 0.05 MG TABLET PO SCH (07:00)
[2021-06-30] MEDS: traMADol HCL HCL 50 MG TABLET (ULTRAM) PO SCH ×4 (07:12→18:00)
[2021-06-30 08:00] VITALS: BP_SYST 101
[2021-06-30] MEDS: SEVELAMER CARBONATE 800 MG TABLET PO SCH ×3 (08:30→18:30)
[2021-06-30] MEDS: DOCUSATE SODIUM 250 MG CAPSULE PO SCH (09:00)
[2021-06-30] MEDS: ATORVASTATIN 20 MG TABLET PO SCH (09:00)
[2021-06-30] MEDS: CITALOPRAM HYDROBROMIDE 20 MG TABLET PO SCH (09:00)
[2021-06-30] MEDS: AMIODARONE HCL 200 MG TABLET PO SCH (09:00)
[2021-06-30] MEDS: ASPIRIN 81 MG TAB.CHEW PO SCH (09:00)
[2021-06-30] MEDS: calcitrioL 0.25 MCG CAPSULE PO SCH (09:00)
[2021-06-30] MEDS: CARVEDILOL 3.125 MG TABLET (COREG) PO SCH ×2 (09:00→21:00)
[2021-06-30] MEDS ORDERED: DIATR MEGLU/DIATRIZ SOD 30 ML SOLUTION PO ONE (10:02)
[2021-06-30] MEDS: DOXYCYCLINE HYCLATE 100 MG CAPSULE PO SCH ×2 (10:27→22:35)
[2021-06-30] MEDS: MINERAL OIL 30 ML UDC PO SCH (10:30)
[2021-06-30] MEDS: NYSTATIN 15 GM TOPICAL POWDER TP SCH ×2 (10:30→22:35)
[2021-06-30] MEDS: ENOXAPARIN SODIUM 30 MG/0.3 ML SYRINGE SUBCUT SCH (11:00)
[2021-06-30] MEDS: FENOFIBRATE NANOCRYSTALLIZED 48 MG TABLET (TRICOR) PO SCH (11:00)
[2021-06-30 11:24] VITALS: BP_SYST 90
[2021-06-30 11:39] LABS: BASOPHILS # (AUTO) 0.1 K/uL (0.0-0.2); BASOPHILS % (AUTO) 0.7 % (0.0-2.0); EOSINOPHILS # (AUTO) 0.2 K/uL (0.0-0.4); EOSINOPHILS % (AUTO) 1.7 % (0.0-4.0); HEMATOCRIT 38.5 % (36-48); HEMOGLOBIN 11.8 g/dL (12.0-16.0); LYMPHOCYTES # (AUTO) 0.9 K/uL (1.0-5.5); LYMPHOCYTES % (AUTO) 10.2 % (20.5-51.5); MEAN CORPUSCULAR HEMOGLOBIN 30 pg (27-31); MEAN CORPUSCULAR HGB CONC 31 % (32-36); MEAN CORPUSCULAR VOLUME 99 fL (79.0-98.0); MONOCYTES # (AUTO) 0.7 K/uL (0.0-1.0); MONOCYTES % (AUTO) 8.1 % (1.7-9.3); NEUTROPHILS # (AUTO) 7.1 K/uL (1.8-7.7); NEUTROPHILS % (AUTO) 79.3 % (40.0-70.0); PLATELET COUNT (AUTO) 133 K/uL (130-430); RED BLOOD CELL COUNT(AUTO) 3.88 MIL/uL (4.2-6.2); RED CELL DISTRIBUTION WIDTH 20.3 % (9.0-15.0)
[2021-06-30 11:50] LABS: CALCIUM 8.7 mg/dL (8.4-11.0); CREATININE 6.31 mg/dL (0.55-1.30); POTASSIUM 5.9 mmol/L (3.5-5.1)
[2021-06-30] MEDS ORDERED: ALBUMIN HUMAN 25% 100 ML IV ONE (14:00)
[2021-06-30 17:03] VITALS: BP_SYST 87
[2021-06-30 23:27] VITALS: BP_SYST 98
[2021-07-01] VITALS: BP_SYST 92
[2021-07-01] MEDS: traZODone HCL 50 MG TABLET (DESYREL) PO PRN (03:03)
[2021-07-01] MEDS: INSULIN NPH/REGULAR 70-30, 100 UNITS/ML, 10 ML VIAL SUBCUT SCH ×2 (05:53→17:00)
[2021-07-01] MEDS: LEVOTHYROXINE SODIUM 0.05 MG TABLET PO SCH (05:57)
[2021-07-01] MEDS: traMADol HCL HCL 50 MG TABLET (ULTRAM) PO SCH ×4 (05:58→18:20)
[2021-07-01 08:00] VITALS: BP_SYST 116
[2021-07-01 08:20] VITALS: BP_SYST 116
[2021-07-01] MEDS: AMIODARONE HCL 200 MG TABLET PO SCH (08:41)
[2021-07-01] MEDS: ASPIRIN 81 MG TAB.CHEW PO SCH (08:43)
[2021-07-01] MEDS: CITALOPRAM HYDROBROMIDE 20 MG TABLET PO SCH (08:43)
[2021-07-01] MEDS: DOCUSATE SODIUM 250 MG CAPSULE PO SCH (08:46)
[2021-07-01] MEDS: FENOFIBRATE NANOCRYSTALLIZED 48 MG TABLET (TRICOR) PO SCH (08:53)
[2021-07-01] MEDS: calcitrioL 0.25 MCG CAPSULE PO SCH (08:53)
[2021-07-01] MEDS: DOXYCYCLINE HYCLATE 100 MG CAPSULE PO SCH (08:53)
[2021-07-01] MEDS: MINERAL OIL 30 ML UDC PO SCH (08:53)
[2021-07-01] MEDS: SEVELAMER CARBONATE 800 MG TABLET PO SCH ×2 (08:54→13:16)
[2021-07-01] MEDS: ATORVASTATIN 20 MG TABLET PO SCH (09:00)
[2021-07-01] MEDS: CARVEDILOL 3.125 MG TABLET (COREG) PO SCH (09:00)
[2021-07-01] MEDS: ENOXAPARIN SODIUM 30 MG/0.3 ML SYRINGE SUBCUT SCH (09:00)
[2021-07-01] MEDS: NYSTATIN 15 GM TOPICAL POWDER TP SCH (09:00)
[2021-07-01] MEDS ORDERED: DOXY100T2 PO (10:48)
[2021-07-01 11:41] VITALS: BP_SYST 93
[2021-07-01 16:11] VITALS: BP_SYST 99
[2021-07-01 17:52] VITALS: BP_SYST 102
== END 2021-07-01 19:20 | DRG 602 ==
LOC: SED 20:45 → STU 06-16 01:16
PROVIDERS: ADMIT Internal Medicine Cardiovascular Disease; ATTEND Internal Medicine Cardiovascular Disease
PROC: 5A1D70Z Performance of Urinary Filtration, Intermittent, Less than 6 Hours Per Day (ICD-10-PCS; 2021-06-17)
PROC: 5A1D70Z Performance of Urinary Filtration, Intermittent, Less than 6 Hours Per Day (ICD-10-PCS; 2021-06-19)
PROC: 5A1D70Z Performance of Urinary Filtration, Intermittent, Less than 6 Hours Per Day (ICD-10-PCS; 2021-06-21)
PROC: 5A1D70Z Performance of Urinary Filtration, Intermittent, Less than 6 Hours Per Day (ICD-10-PCS; 2021-06-22)
PROC: 5A1D70Z Performance of Urinary Filtration, Intermittent, Less than 6 Hours Per Day (ICD-10-PCS; 2021-06-24)
PROC: 5A1D70Z Performance of Urinary Filtration, Intermittent, Less than 6 Hours Per Day (ICD-10-PCS; 2021-06-27)
PROC: 5A1D70Z Performance of Urinary Filtration, Intermittent, Less than 6 Hours Per Day (ICD-10-PCS; 2021-06-28)
PROC: 5A1D70Z Performance of Urinary Filtration, Intermittent, Less than 6 Hours Per Day (ICD-10-PCS; 2021-06-30)
PROC: 0W9G3ZZ Drainage of Peritoneal Cavity, Percutaneous Approach (ICD-10-PCS; principal; 2021-07-01)
DX: L03.115 Cellulitis of right lower limb (principal); N18.6 End stage renal disease; I50.40 Unspecified combined systolic (congestive) and diastolic (congestive) heart failure; F33.1 Major depressive disorder, recurrent, moderate; I13.2 Hypertensive heart and chronic kidney disease with heart failure and with stage 5 chronic kidney disease, or end stage renal disease; L97.919 Non-pressure chronic ulcer of unspecified part of right lower leg with unspecified severity; R45.851 Suicidal ideations; Z68.41 Body mass index [BMI] 40.0-44.9, adult; R18.8 Other ascites; E11.622 Type 2 diabetes mellitus with other skin ulcer; L03.116 Cellulitis of left lower limb; R07.89 Other chest pain; E03.9 Hypothyroidism, unspecified; E11.22 Type 2 diabetes mellitus with diabetic chronic kidney disease; E78.5 Hyperlipidemia, unspecified; G89.4 Chronic pain syndrome; I25.10 Atherosclerotic heart disease of native coronary artery without angina pectoris; I48.0 Paroxysmal atrial fibrillation; D63.1 Anemia in chronic kidney disease; E11.51 Type 2 diabetes mellitus with diabetic peripheral angiopathy without gangrene; E11.42 Type 2 diabetes mellitus with diabetic polyneuropathy; E11.65 Type 2 diabetes mellitus with hyperglycemia; E66.01 Morbid (severe) obesity due to excess calories; E83.39 Other disorders of phosphorus metabolism; F41.9 Anxiety disorder, unspecified; I25.5 Ischemic cardiomyopathy; J45.909 Unspecified asthma, uncomplicated; E87.5 Hyperkalemia; I35.0 Nonrheumatic aortic (valve) stenosis; Z20.822 Contact with and (suspected) exposure to COVID-19; K59.09 Other constipation; Z79.4 Long term (current) use of insulin; Z79.82 Long term (current) use of aspirin; Z79.899 Other long term (current) drug therapy; Z74.01 Bed confinement status; Z81.8 Family history of other mental and behavioral disorders; Z99.2 Dependence on renal dialysis; Z82.0 Family history of epilepsy and other diseases of the nervous system; Z88.9 Allergy status to unspecified drugs, medicaments and biological substances; Z91.15 Patient's noncompliance with renal dialysis; Z91.19 Patient's noncompliance with other medical treatment and regimen; Z95.1 Presence of aortocoronary bypass graft; Z88.6 Allergy status to analgesic agent; Z88.1 Allergy status to other antibiotic agents; Z88.0 Allergy status to penicillin; Z91.013 Allergy to seafood; Z88.2 Allergy status to sulfonamides; Z88.8 Allergy status to other drugs, medicaments and biological substances; Z91.09 Other allergy status, other than to drugs and biological substances
CPT/HCPCS: 36415; 49083; 71045; 76376; 80048; 80053; 82040; 82550; 82962; 83540; 83880; 84100; 84311; 84439; 84443; 84480; 84484; 85025; 85610-TC; 85730-TC; 87040; 87081; 90935; 90937; 93005; 93923; 99285; C1729; G0378; J1650; J1815; J2001; J2270; J3243; Q5106; Q9964